=== PATIENT | male | born 1975 | race Caucasian/White ===

== ENCOUNTER 2017-11-22 13:45 | Emergency (ER) | payer MEDICAID, SELFPAY ==
[2017-11-22 13:46] VITALS: BP 151/83; PULSE 110; RESP 16; TEMP 36.4; O2SAT 99; BMI 29.8
--- NOTE | 2017-11-22 14:05 | ED.VISSUMM ---
- ER Visit Summary Date of Service: 11/22/17 Chief Complaint: Med refill History of Present Illness: The patient is a 42 M history of epilepsy on Tegretol 200 mg 3 times daily, Keppra 500 mg twice daily. out of his meds, has 1 Tegretol left. Seen a month ago with his breakthrough seizure when he is out of his meds. Since then several legal issues, and incarcerated, out of his Keppra in assisted. Denies any seizure activity. was seen [facility], however wants physician in the area. Physical Examination: General: Alert and oriented ?3, no acute distress HEENT: Normocephalic, atraumatic. Moist mucosa membranes Neck: supple, nontender. Cardiovascular: Regular rate and rhythm, no murmurs Respiratory: Normal breath sounds, symmetric, no distress Abdomen: Soft, nontender, nondistended Extremities: Nontender, no edema, pulses intact ?4 Neuro: no focal neurological deficits. Test Results: [] Emergency Department Course and Treatment: Patient will be [facility] physician [facility]. [facility] also has insurance so he can call physician the area for new patients. He prescribed 1 month supply of medications. Discussed with patient ED cannot continue to refill his medications. Primary can give him refills and long-term supplies. He understands. Treatment Plan: [] Disposition: Discharge Impression: 1. Medication refill 2. Epilepsy history This note was generated with [employer] Remember dictation software. It may contain incorrect words, spelling, and punctuation that were not noted in review of the chart prior to signing ED Disposition - Plan for ED Patient: Disposition: Home or Assisted Living Chief Complaint: Med Refill Diagnosis: Medication refill Instructions: Med Refill Prescriptions: Levetiracetam [Keppra] 500 mg PO BID #60 tablet Carbamazepine [Tegretol] 200 mg PO TID #90 tablet Referrals: Care Physician,No Primary [Primary Care Provider] - Evy Bassett MD [COURTESY STAFF PHYSICIAN] - 5-7 Days
--- NOTE | 2017-11-22 14:09 | ED.DCSUM_ITS ---
- ER Visit Summary Date of Service: 11/22/17 Chief Complaint: Med refill History of Present Illness: The patient is a 42 M history of epilepsy on Tegretol 200 mg 3 times daily, Keppra 500 mg twice daily. out of his meds, has 1 Tegretol left. Seen a month ago with his breakthrough seizure when he is out of his meds. Since then several legal issues, and incarcerated, out of his Keppra in shelter. Denies any seizure activity. was seen [facility] , however wants physician in the area. Physical Examination: General: Alert and oriented ?3, no acute distress HEENT: Normocephalic, atraumatic. Moist mucosa membranes Neck: supple, nontender. Cardiovascular: Regular rate and rhythm, no murmurs Respiratory: Normal breath sounds, symmetric, no distress Abdomen: Soft, nontender, nondistended Extremities: Nontender, no edema, pulses intact ?4 Neuro: no focal neurological deficits. Test Results: [] Emergency Department Course and Treatment: Patient will be given on-call physician [facility]. [facility] also has insurance so he can call physician the area for new patients. He prescribed 1 month supply of medications. Discussed with patient ED cannot continue to refill his medications. Primary can give him refills and long-term supplies. He understands. Treatment Plan: [] Disposition: Discharge Impression: 1. Medication refill 2. Epilepsy history This note was generated with PivotDesk dictation software. It may contain incorrect words, spelling, and punctuation that were not noted in review of the chart prior to signing ED Disposition - Plan for ED Patient: Disposition: Home or Assisted Living Chief Complaint: Med Refill Diagnosis: Medication refill Instructions: Med Refill Prescriptions: Levetiracetam [Keppra] 500 mg PO BID #60 tablet Carbamazepine [Tegretol] 200 mg PO TID #90 tablet Referrals: Care Physician,No Primary [Primary Care Provider] - Evy Bassett MD [COURTESY STAFF PHYSICIAN] - 5-7 Days
== END 2017-11-22 14:32 | disposition home or self-care (01) ==
PROVIDERS: Emergency Provider Emergency Medicine
DX: Z76.0 Encounter for issue of repeat prescription (principal); G40.909 Epilepsy, unspecified, not intractable, without status epilepticus
CPT/HCPCS: 99282

== ENCOUNTER 2018-02-08 14:36 | Emergency (ER) | payer SELFPAY ==
[2018-02-08 14:38] VITALS: BP 146/78; PULSE 91; RESP 14; TEMP 37.1; O2SAT 98; BMI 30.7
--- NOTE | 2018-02-08 15:10 | ED.DCSUM_ITS ---
- ER Visit Summary Date of Service: 02/08/18 Chief Complaint: Seizure History of Present Illness: The patient is a 42 M history of seizure disorder since he is a child. Recently moved from [facility] currently does not have a primary care physician. For the last several weeks he has been out of his seizure medications which are Keppra and Tegretol. Today at work had a seizure. Denies any falls or injuries. Currently states he feels fine. No recent illness. No recent head injury. Physical Examination: Well-appearing middle-age male. Vital signs are stable afebrile. HEENT exam unremarkable atraumatic. Pupils round reactive light. No facial or head trauma. C-spine nontender. Lungs clear to auscultation bilaterally. Heart regular rate and rhythm no murmur. Chest wall nontender. Abdomen soft nontender. Normal bowel sounds. Pelvic girdle intact. Moving all 4 extremities neurovascularly intact. He has limited range of motion of his right hip from prior hip surgery and prior hip fracture. Back exam nontender. Neurologically is awake and alert without focal motor deficits. Test Results: None Emergency Department Course and Treatment: Patient with recurrent seizure currently noncompliant of these out of his meds. As a normal exam. He will be given a dose of Keppra and Tegretol here and written for prescription for both. He will also be given referral to local physician. Treatment Plan: [] Disposition: Discharged Impression: Recurrent seizure History of chronic seizure disorder currently out of his medications This note was generated with Thrasos dictation software. It may contain incorrect words, spelling, and punctuation that were not noted in review of the chart prior to signing ED Disposition - Plan for ED Patient: Chief Complaint: Seizure Referrals: Care Physician,No Primary [Primary Care Provider] -
--- NOTE | 2018-02-08 15:10 | ED.DEP ---
ED Disposition - Plan for ED Patient: Disposition: Home or Assisted Living Chief Complaint: Seizure Instructions: ED Seizure Recurrent Prescriptions: levETIRAcetam tablet [Keppra tablet] 500 mg PO BID #60 tab Carbamazepine [Tegretol] 200 mg PO TIDCM #90 tab Referrals: Sukh Strange MD [STAFF PHYSICIAN] - As soon as possible Additional Instructions: Call and follow-up with a local primary care physician. I wrote you prescriptions for both of your seizure medications for the next month.
[2018-02-08 15:28] VITALS: BP 148/72; PULSE 87; RESP 18; O2SAT 100
[2018-02-08] MEDS: levETIRAcetam 500 MG Tablet PO (15:55)
[2018-02-08] MEDS: carBAMazepine 200 MG Tablet 400 MG PO (15:55)
== END 2018-02-08 15:56 | disposition home or self-care (01) ==
PROVIDERS: Emergency Provider Emergency Medicine
DX: G40.909 Epilepsy, unspecified, not intractable, without status epilepticus (principal); Z91.14 Patient's other noncompliance with medication regimen; Z72.0 Tobacco use
CPT/HCPCS: 99283

== ENCOUNTER 2019-04-17 08:41 | Emergency (ER) | payer MEDICAID, SELFPAY ==
[2019-04-17 08:42] VITALS: BP 157/139; PULSE 113; RESP 19; TEMP 36.9; O2SAT 98; BMI 33.7
--- NOTE | 2019-04-17 09:01 | ED.VIS.GEN ---
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 He is on Keppra and Tegretol, he has prescriptions but he does not have any money to fill them. Paramedics after a witnessed tonic-clonic seizure. Apparently he was in line at a charge for free breakfast. He is no longer postictal he is lucid coherent denies any shoulder pain tongue pain or any other symptoms. He tells me he feels back to baseline. Past Medical History - Allergies and Home Meds Allergies/Adverse Reactions: Allergies Penicillins Allergy (Verified 02/08/18 14:40) Rash Sulfa (Sulfonamide Antibiotics) Allergy (Verified 02/08/18 14:40) Rash Primary Care Physician: Care Physician,No Primary [Primary Care Provider] - Past Medical History: - - Seizure disorder Smoking Status: Current every day smoker Alcohol: Rare Drugs: None Review of Systems All systems negative except as indicated General: Denies: Chills, Fever, Sweats Eyes: Denies: Visual changes - bilaterally, Diplopia ENT: Denies: Rhinorrhea, Sore throat Cardiovascular: Denies: Chest pain, Palpitations Respiratory: Denies: Dyspnea, Cough, Dyspnea on exertion Gastrointestinal: Denies: Abdominal pain, Nausea, Vomiting, Diarrhea, Melena, Hematochezia Genitourinary: Denies: Dysuria, Hematuria, Frequency Musculoskeletal: Denies: Back pain, Extremity Pain Skin: Denies: Rash, Wounds Neurological: Reports: Numbness - As in HPI. Denies: Headache, Weakness Hematologic: Denies: Easy bruising Physical Exam Vital Signs/Narrative: Vital Signs Temp Pulse Resp BP Pulse Ox 04/17/19 08:42 98.5 F 113 H 19 H 157/139 H 98 Inital Vital Signs reviewed: Yes General: Well nourished, Well developed Head: Normocephalic Eyes: Perrl ENT: Moist mucous membranes Neck: Supple Cardiovascular: Regular rate, Regular rhythm Respiratory: No distress Abdomen: Soft, Nontender Back: Nontender, Normal Inspection. Negative for: CVA tenderness Extremities: Nontender Skin: Normal color Neurological: Alert, Oriented x3, - - Chronic dystonic movements Psychological: Normal affect, Normal Mood Diagnostic/Tx/Re-eval - Medical Decision Making Patient has an unremarkable ED work-up. We will get social work involved for medication prescription assistance. Otherwise he is discharged in stable condition ED Disposition - Plan for ED Patient: Disposition: Home or Assisted Living Instructions: SEIZURE, Recurrent [Adult] Referrals: Miguel Felipe DO [NON CLINICAL AFFILIATE] - 3-5 Days
[2019-04-17 09:28] VITALS: BP 134/76; PULSE 86; RESP 18; O2SAT 99
[2019-04-17 09:33] LABS: Absolute Lymphocyte Count 1.88 X10^3/ul (0.83-4.51); Absolute Neutrophil Count 3.5 X10^3/uL (2.0-7.7); Basophil# 0.01 X10^3/uL; Basophil% 0.2 % (0-1); Eosinophil# 0.23 X10^3/uL; Eosinophils% 3.6 % (0-5); Hematocrit 41.2 % (40-54); Hemoglobin 13.9 g/dl (13.0-16.5); Lymphocyte # 1.88 X10^3/ul (4.0); Lymphocyte % 29.2 % (19-41); Mean Corp Hgb Conc 33.7 g/gl (32-36); Mean Corpuscular Hgb 30.8 pg (27.0-32.0); Mean Corpuscular Volume 91.2 fL (80-94); Mean Platelet Vol. 9.2 fl (6.2-12.0); Monocyte# 0.84 X10^3/uL; Monocyte% 13.1 % (0-10); Neutrophil # 3.47 X10^3/uL (2.7-7.7); Neutrophil % 53.9 % (47-70); POSITIVE COUNT NO; POSITIVE DIFFERENTIAL NO; POSITIVE MORPHOLOGY NO; Platelet Count 317 K/mm3 (150-450); RBC Distribution Width CV 14.1 % (11.6-14.6); RBC Distribution Width SD 46.1 fl (35.1-43.9); Red Blood Count 4.52 M/mm3 (4.6-6.2); White Blood Count 6.4 K/mm3 (4.4-11.0)
[2019-04-17 09:46] LABS: ALB/GLOB Ratio 1.2 RATIO (0.9-2.4); AST(SGOT) 31 U/L (15-37); Alanine Aminotransfer ALT/SGPT 37 U/L (16-61); Albumin, Serum 3.8 g/dL (3.2-5.0); Alkaline Phosphatase 84 U/L (45-117); Anion Gap 5 (5-15); BUN 13 mg/dL (7-18); Calcium,Total 9.1 mg/dL (8.5-10.1); Chloride 104 mmol/L (98-107); EST Glomerular Filtration Rate 87 mL/min (>60); Est Glom Filt Rate - Afr Amer 105 mL/min (>60); Estimated Creatinine Clearance 71.19 ml/min; Globulin 3.2 g/dL (2.2-4.2); Glucose 90 mg/dL (74-106); Potassium 3.9 mmol/L (3.5-5.1); Sodium Level 136 mmol/L (136-145)
[2019-04-17 10:10] VITALS: PULSE 76
[2019-04-17 10:11] VITALS: BP 132/74; PULSE 76; RESP 20
--- NOTE | 2019-04-17 10:25 | CM.ED ---
Social Work Consult: Medication Assistance Informant: Charge Nurse, [place] Met with patient in room. This manager social services inquiring about medication concerns. Patient reporting to have no medication concerns and to be reporting to have needed medications. Patient stating to get frustrated with taking medication as it doesn't seem to make a difference. This manager social services broached topic of whether or not patient has had any thoughts of suicide, patient denies any thoughts. Patient is identifying to have limited support within the community and to currently be staying at the [facility]. Patient reporting to have a transportation card with [email or web address] and to have transportation to home. This manager social services encouraging patient to be compliant with medication management and following up with neurologist as well as having a conversation about the importance of being compliant. Patient voicing understanding, but continuing to stay the frustration with needing to manage medications and appointments. Patient stating to be able to management medications and appointments on own but to just be frustrating. This manager social services offering active listening and support throughout conversation. Nataly Browning CONSERVATION OF RESOURCES COMMISSIONER, [place]OLF
== END 2019-04-17 10:31 | disposition home or self-care (01) ==
PROVIDERS: Emergency Provider Emergency Medicine
DX: G40.909 Epilepsy, unspecified, not intractable, without status epilepticus (principal); F17.200 Nicotine dependence, unspecified, uncomplicated; Z88.0 Allergy status to penicillin
CPT/HCPCS: 80053; 85025; 99285; J7050

== ENCOUNTER 2020-06-26 14:10 | Emergency (ER) | payer MEDICAID, SELFPAY ==
[2020-06-26 14:10] VITALS: BP 134/80; PULSE 106; RESP 20; TEMP 37.1; O2SAT 95; BMI 30.6
--- NOTE | 2020-06-26 14:20 | ED.VIS.GEN ---
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 Patient has history of seizure disorder. He is currently on Keppra and Tegretol. He states he did miss his dose of medication last evening but otherwise has been taking it regularly. He reports his last seizure was approximately 1 week ago. Patient states the last thing he remembers is sitting on a bench outside the [facility] and then waking up with EMS around him. He denies any pain or injury at this time. - Past Medical History (1) Seizure disorder Status: Chronic Past Medical History - Allergies and Home Meds Allergies/Adverse Reactions: Allergies Penicillins Allergy (Verified 06/26/20 14:13) Rash Sulfa (Sulfonamide Antibiotics) Allergy (Verified 06/26/20 14:13) Rash Primary Care Physician: Ritesh Salazar MD [STAFF PHYSICIAN] - As Needed Prior records reviewed: Yes Smoking Status: Current every day smoker Drugs: Marijuana Review of Systems General: Denies: Chills, Fever Eyes: Denies: Visual changes - bilaterally ENT: Denies: Bilateral ear pain Cardiovascular: Denies: Chest pain Respiratory: Denies: Dyspnea, Cough Gastrointestinal: Denies: Abdominal pain, Vomiting, Diarrhea Musculoskeletal: Denies: Extremity Pain Skin: Denies: Rash Neurological: Denies: Headache Hematologic: Denies: Easy bruising, Easy bleeding Allergy: Denies: Uticaria Physical Exam Vital Signs/Narrative: Vital Signs Temp Pulse Resp BP Pulse Ox 06/26/20 14:10 98.8 F 106 H 20 H 134/80 H 95 Inital Vital Signs reviewed: Yes General: Well nourished, Well developed Head: Normocephalic ENT: Moist mucous membranes Neck: Supple Cardiovascular: Regular rate, Regular rhythm Respiratory: No distress, CTA bilaterally Abdomen: Soft, Nontender, Normal bowel sounds Extremities: Nontender Skin: Normal color Neurological: Alert, Oriented x3, Normal Strength, Normal Sensation Psychological: Normal affect Diagnostic/Tx/Re-eval Laboratory Results 06/26/20 06/26/20 14:15 14:15 WBC 7.5 RBC 4.13 L Hgb 13.4 Hct 40.5 MCV 98.1 H MCH 32.4 H MCHC 33.1 RDW Std Deviation 49.8 H RDW Coeff of Sunshine 13.7 Plt Count 288 MPV 10.0 Immature Gran % (Auto) 0.100 Neut % (Auto) 35.8 L Lymph % (Auto) 42.3 H Bee % (Auto) 14.5 H Eos % (Auto) 6.6 H Baso % (Auto) 0.7 Absolute Neuts (auto) 2.7 Absolute Lymphs (auto) 3.16 Nucleated RBC % 0 Sodium 143 Potassium 3.8 Chloride 109 H Carbon Dioxide 27.0 Anion Gap 7 BUN 7 Creatinine 1.16 Estim Creat Clear Calc 79.44 Est GFR (MDRD) Af Amer 88 Est GFR (MDRD) Non-Af 73 BUN/Creatinine Ratio 6.0 L Glucose 91 Calcium 9.3 - Medical Decision Making Patient was given 0.5 mg of IV Ativan along with his p.o. dose of Keppra and Tegretol. Lab results are unremarkable. At this time patient is alert and oriented. I will give him the phone number for call neurology follow-up as needed. He states he does have medications and refills left. Addendum: Although patient told me on 2 separate occasions that he had his medication with him and had been taking it regularly, he told the nurse when he was being discharged that he did not have any of his medications. He states he left the bottles and recommended he has been living in [place] lately because of legal reasons. Prescriptions for Keppra and Tegretol will be sent to [facility] for him. ED Disposition - Plan for ED Patient: Disposition: Home or Assisted Living Diagnosis: Seizure Instructions: ED Seizure Recurrent Adult Prescriptions: Levetiracetam [Keppra] 500 mg PO BID #60 tab Transmission Status: Pending to [facility] #30 Carbamazepine [Tegretol] 200 mg PO TIDCM #90 tab Transmission Status: Pending to [facility]30 Referrals: Ritesh Salazar MD [STAFF PHYSICIAN] - As Needed
[2020-06-26 14:26] VITALS: BP 133/77; PULSE 102; RESP 23; O2SAT 97
[2020-06-26 14:40] LABS: Absolute Lymphocyte Count 3.16 X10^3/uL (0.83-4.51); Absolute Neutrophil Count 2.7 X10^3/uL (2.0-7.7); Basophil# 0.05 X10^3/uL; Basophil% 0.7 % (0-1); Eosinophil# 0.49 X10^3/uL; Eosinophils% 6.6 % (0-5); Hematocrit 40.5 % (40-54); Hemoglobin 13.4 g/dL (13.0-16.5); Lymphocyte # 3.16 X10^3/ul (4.0); Lymphocyte % 42.3 % (19-41); Mean Corp Hgb Conc 33.1 g/dL (32-36); Mean Corpuscular Hgb 32.4 pg (27.0-32.0); Mean Corpuscular Volume 98.1 fL (80-94); Monocyte# 1.08 X10^3/uL; Monocyte% 14.5 % (0-10); NRBC Flagged by Analyzer 0 % (0-5); Neutrophil # 2.68 X10^3/uL (2.7-7.7); Neutrophil % 35.8 % (47-70); Platelet Count 288 K/mm3 (150-450); RBC Distribution Width CV 13.7 % (11.6-14.6); RBC Distribution Width SD 49.8 fl (35.1-43.9); Red Blood Count 4.13 M/mm3 (4.6-6.2); White Blood Count 7.5 K/mm3 (4.4-11.0)
[2020-06-26] MEDS: LORazepam 2 MG/ML Syringe 0.5 MG IV (14:42)
[2020-06-26 14:57] LABS: Anion Gap 7 (5-15); BUN 7 mg/dL (7-18); Calcium,Total 9.3 mg/dL (8.5-10.1); Chloride 109 mmol/L (98-107); Creatinine, Serum 1.16 mg/dL (0.70-1.30); EST Glomerular Filtration Rate 73 mL/min (>60); Est Glom Filt Rate - Afr Amer 88 mL/min (>60); Estimated Creatinine Clearance 79.44 ml/min; Glucose 91 mg/dL (74-106); Potassium 3.8 mmol/L (3.5-5.1); Sodium Level 143 mmol/L (136-145)
[2020-06-26] MEDS: carBAMazepine 200 MG Tablet PO (15:10)
[2020-06-26] MEDS: levETIRAcetam 500 MG Tablet PO (15:10)
[2020-06-26 16:31] VITALS: BP 125/63; PULSE 101; RESP 27; O2SAT 98
== END 2020-06-26 16:43 | disposition home or self-care (01) ==
PROVIDERS: Emergency Provider Emergency Medicine; PCP Family Medicine
DX: G40.909 Epilepsy, unspecified, not intractable, without status epilepticus (principal); F17.200 Nicotine dependence, unspecified, uncomplicated; Z88.0 Allergy status to penicillin; Z88.2 Allergy status to sulfonamides
CPT/HCPCS: 80048; 85025; 96374; 99285; A4216

== ENCOUNTER 2020-07-04 14:01 | Emergency (ER) | payer MEDICAID, SELFPAY ==
[2020-07-04 14:03] VITALS: BP 133/64; PULSE 102; RESP 16; TEMP 36.4; O2SAT 97; BMI 30.7
--- NOTE | 2020-07-04 14:14 | ED.DCSUM_ITS ---
- ER Visit Summary Date of Service: 07/04/20 Chief Complaint: [Seizure] History of Present Illness: The patient is a 44 M [presents to the emergency department after having a seizure while outside of [employer]. Patient was witnessed apparently to have whole body tonic-clonic seizure and EMS was called. EMS stated the seizure was noted to last about 2 minutes. Patient has history of seizures. Patient states last seizure was about 1 month ago. Patient states that he has been compliant with his medications. Patient denies recent illness. He denies sleep deprivation. Patient has no complaints. He denies injury. He denies biting his mouth or tongue. He denies losing control of bowel or bladder.] Patient denies illicit drug use. Patient denies alcohol use. Physical Examination: [HEENT-PERRLA, EOMI. Cranial nerves II through XII grossly intact. TMs clear. Mucous membranes moist. No adenopathy. Cardiovascular-regular rate and rhythm without murmur or ectopy Lungs-clear to auscultation, chest wall stable without crepitus or subcu emphysema Abdomen-normoactive bowel sounds, soft, nontender, no rebound or rigidity, no peritoneal signs. Neuro [id number] and heel campos testing within normal limits, negative Romberg, negative for drift, fundi benign Extremities-intact ?4, normal range of motion, normal pulses, atraumatic] Test Results: [CBC with differential obtained showing a 6.2, hemoglobin 13.7, hematocrit 42, placed 321. Chemistries unremarkable. BUN was 12 and creatinine 1.22.] Patient's Tegretol level was less than 5. Emergency Department Course and Treatment: [ Established on arrival. Patient was observed in the department. After I noted that his Tegretol level was less than 5 I discussed with him further if he has been taking his medications and now he tells me that he is actually been without his meds for about 3 days as he ran out. Patient received Keppra 500 mg p.o. and Tegretol 200 mg p.o. in the department.] Treatment Plan: [Patient will be given prescription for Keppra and Tegretol. Patient advised to follow-up with his primary care physician 3 to 5 days.] Disposition: [Discharged home in stable condition] Impression: [Hcmjqro-[id number]-[id number] with meds] This note was generated with Dragon dictation software. It may contain incorrect words, spelling, and punctuation that were not noted in review of the chart prior to signing ED Disposition - Plan for ED Patient: Referrals: Austin Skinner MD [Primary Care Provider] -
[2020-07-04 14:39] LABS: Absolute Lymphocyte Count 2.18 X10^3/uL (0.83-4.51); Absolute Neutrophil Count 2.7 X10^3/uL (2.0-7.7); Basophil# 0.04 X10^3/uL; Basophil% 0.6 % (0-1); Eosinophil# 0.28 X10^3/uL; Eosinophils% 4.5 % (0-5); Hematocrit 41.8 % (40-54); Hemoglobin 13.7 g/dL (13.0-16.5); Lymphocyte # 2.18 X10^3/ul (4.0); Lymphocyte % 35.2 % (19-41); Mean Corp Hgb Conc 32.8 g/dL (32-36); Mean Corpuscular Hgb 32.8 pg (27.0-32.0); Mean Platelet Vol. 9.5 fl (6.2-12.0); Monocyte% 16.1 % (0-10); NRBC Flagged by Analyzer 0 % (0-5); Neutrophil # 2.69 X10^3/uL (2.7-7.7); Neutrophil % 43.4 % (47-70); Platelet Count 321 K/mm3 (150-450); RBC Distribution Width CV 13.7 % (11.6-14.6); RBC Distribution Width SD 50.3 fl (35.1-43.9); Red Blood Count 4.18 M/mm3 (4.6-6.2); White Blood Count 6.2 K/mm3 (4.4-11.0)
[2020-07-04 14:50] LABS: Anion Gap 10 (5-15); BUN 12 mg/dL (7-18); BUN/Creat Ratio 9.8 RATIO (10-20); Calcium,Total 8.9 mg/dL (8.5-10.1); Chloride 107 mmol/L (98-107); Creatinine, Serum 1.22 mg/dL (0.70-1.30); EST Glomerular Filtration Rate 69 mL/min (>60); Est Glom Filt Rate - Afr Amer 83 mL/min (>60); Estimated Creatinine Clearance 70.45 ml/min; Glucose 88 mg/dL (74-106); Potassium 4.3 mmol/L (3.5-5.1); Sodium Level 141 mmol/L (136-145)
[2020-07-04 15:33] LABS: Carbamazepine (Tegretol) < 0.5 ug/mL (4.0-12.0)
--- NOTE | 2020-07-04 15:41 | ED.DEP ---
ED Disposition - Plan for ED Patient: Instructions: ED Seizure Recurrent Adult Prescriptions: Levetiracetam [Keppra] 500 mg PO BID #60 tab Transmission Status: Pending to [facility] #30 Carbamazepine [Tegretol] 200 mg PO TIDCM #90 tab Transmission Status: Pending to [facility] Referrals: Austin Skinner MD [Primary Care Provider] -
[2020-07-04] MEDS: levETIRAcetam 500 MG Tablet PO (15:57)
[2020-07-04] MEDS: carBAMazepine 200 MG Tablet PO (15:57)
== END 2020-07-04 16:00 | disposition home or self-care (01) ==
LOC: ED 14:46
PROVIDERS: Emergency Provider Emergency Medicine; PCP Family Medicine
DX: G40.909 Epilepsy, unspecified, not intractable, without status epilepticus (principal); Z91.14 Patient's other noncompliance with medication regimen
CPT/HCPCS: 80048; 80156; 85025; 99285; A4216

== ENCOUNTER 2020-07-15 22:25 | Emergency (ER) | payer MEDICAID, SELFPAY ==
[2020-07-15 22:25] VITALS: BP 138/84; PULSE 95; RESP 14; TEMP 36.7; O2SAT 95; BMI 27.7
--- NOTE | 2020-07-15 22:39 | CT_ITS ---
STUDY: CT BRAIN WITHOUT CONTRAST REASON FOR EXAM: Male, 44 years old. 2 minutes seizure. Hasn''t taking seizure medication for weeks. RADIATION DOSAGE (If Supplied By Facility): CTDIvol = ( 44.99 ) mGy, DLP = ( 846.73 ) mGycm TECHNIQUE: Transaxial CT imaging of the brain was performed without administration of intravenous contrast material. Individualized dose optimization techniques were used for this CT. COMPARISON: 07/01/2017. FINDINGS: Normal soft tissue structures. Normal calvarium. Been interval healing of the right zygomatic arch fracture seen on the prior study. Normal size ventricles and extra-axial spaces for the patient''s age. Normal white matter tracts of the cerebral hemispheres. Normal basal ganglia and thalami. Normal brainstem. Normal cerebellum. There is no intracranial hemorrhage. There are no findings of an acute ischemic infarction. Normal visualized paranasal sinuses. CT/Brain/Head without Contrast IMPRESSION: No acute intracranial calvarial abnormality. Electronically Signed: Pj Rashid DO at 23:27 EDT Tel [phone], Service support ,
--- NOTE | 2020-07-15 22:42 | ED.VISSUMM ---
- ER Visit Summary Date of Service: 07/15/20 Chief Complaint: Seizure History of Present Illness: The patient is a 44 M presenting after generalized seizure. Patient does not recall the events surrounding this incident. He arrived per EMS. He was found outside [facility] after bystanders witnessed 2 min seizure. He has a history of seizure disorder. He states he has been out of his medications for the past 3 weeks. He usually takes Keppra and Tegretol. Last seizure was approximately 1 month ago. He is unsure of his last tetanus immunization. He denies headache or neck pain. Denies incontinence. Denies injury. Physical Examination: Vitals are stable. Patient is afebrile. Alert no acute distress. HEENT exam abrasion superior scalp Neck is nontender Lungs are clear and equal bilaterally. Heart is regular rate and rhythm. Abdomen is soft nontender nondistended. Extremities are unremarkable. Skin is warm and dry. No focal neurologic deficit. Remainder of exam is unremarkable. Emergency Department Course and Treatment: Patient was given Adacel IM. Abrasion was cleaned and dressed. He was given Tegretol and Keppra. CT head shows no acute intracranial calvarial abnormality. Patient was given prescriptions for Keppra and Tegretol. He states he will be able to get these filled tomorrow. He is advised to return to the ED for any worsening complaints. Disposition: Discharged home Impression: Seizure, history of seizure disorder; noncompliance with medications This note was generated with [employer] dictation software. It may contain incorrect words, spelling, and punctuation that were not noted in review of the chart prior to signing ED Disposition - Plan for ED Patient: Referrals: Austin Skinner MD [Primary Care Provider] -
[2020-07-15] MEDS: carBAMazepine 200 MG Tablet PO (23:02)
[2020-07-15] MEDS: Diphth,Pertuss(Acell),Tet Vac 0.5 ML Vial IM (23:02)
[2020-07-15] MEDS: levETIRAcetam 500 MG Tablet 1000 MG PO (23:02)
--- NOTE | 2020-07-15 23:37 | ED.DEP ---
ED Disposition - Plan for ED Patient: Instructions: ED Seizure Recurrent Adult Prescriptions: levETIRAcetam tablet [Keppra tablet] 500 mg PO BID #60 tab Prescription Printed Carbamazepine [Tegretol] 200 mg PO TIDCM #90 tab Prescription Printed Referrals: Austin Skinner MD [Primary Care Provider] -
[2020-07-15 23:40] VITALS: BP 139/92; PULSE 68; RESP 16; O2SAT 98
== END 2020-07-15 23:43 | disposition home or self-care (01) ==
PROVIDERS: Emergency Provider Emergency Medicine; PCP Family Medicine
DX: G40.909 Epilepsy, unspecified, not intractable, without status epilepticus (principal); Z91.14 Patient's other noncompliance with medication regimen
CPT/HCPCS: 70450; 90471; 90715; 99285; A4216

== ENCOUNTER 2020-07-19 08:52 | Emergency (ER) | payer MEDICAID, SELFPAY ==
[2020-07-19 08:53] VITALS: BP 125/87; PULSE 82; RESP 19; TEMP 36.9; O2SAT 98; BMI 28.1
--- NOTE | 2020-07-19 09:03 | ED.VIS.GEN ---
History of Present Illness <Jesus Willingham - Last Filed: 07/19/20 10:05> Informant: Patient Onset: Today Narrative: 44-year-old male with past medical history of seizure disorder presents after a seizure. He states this is his third seizure this week. He does not recall what happened. He has a history of generalized tonic-clonic seizures and was brought in by squad. Denies injuries. 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 He has not taken any AEDs for the last week. He does not follow with a doctor or neurologist. Denies fevers, chills, headache, vision changes, nausea, vomiting, or motor or sensory changes. <Sheela Barth - Last Filed: 07/19/20 10:22> Chief Complaint: Seizure Past Medical History <Jesus Willingham - Last Filed: 07/19/20 10:05> Past Medical History: - - epilepsy Smoking Status: Current every day smoker <Sheela Barth - Last Filed: 07/19/20 10:22> - Allergies and Home Meds Allergies/Adverse Reactions: Allergies Penicillins Allergy (Verified 07/19/20 08:53) Rash Sulfa (Sulfonamide Antibiotics) Allergy (Verified 07/19/20 08:53) Rash Primary Care Physician: Austin Skinner MD [Primary Care Provider] - Review of Systems General: Denies: Chills, Fever, Sweats Eyes: Denies: Visual changes - bilaterally, Diplopia ENT: Denies: Rhinorrhea, Sore throat Cardiovascular: Denies: Chest pain, Palpitations Respiratory: Denies: Dyspnea, Cough, Dyspnea on exertion Gastrointestinal: Reports: Melena, Hematochezia. Denies: Abdominal pain, Nausea, Vomiting, Diarrhea Genitourinary: Denies: Dysuria, Hematuria, Frequency Musculoskeletal: Denies: Back pain, Extremity Pain Skin: Reports: Rash. Denies: Wounds Neurological: Denies: Headache, Weakness, Parasthesia, Numbness <Sheela Barth - Last Filed: 07/19/20 10:22> Physical Exam Vital Signs/Narrative: Vital Signs Temp Pulse Resp BP Pulse Ox 07/19/20 08:53 98.5 F 82 19 H 125/87 H 98 <Jesus Willingham - Last Filed: 07/19/20 10:05> Vital Signs/Narrative: Vital Signs Temp Pulse Resp BP Pulse Ox 07/19/20 08:53 98.5 F 82 19 H 125/87 H 98 Inital Vital Signs reviewed: Yes General: Well nourished, Well developed, No Acute Distress Head: Normocephalic, Atraumatic Eyes: Perrl, EOMI ENT: Moist mucous membranes, - - Old abrasion on vertex of head, otherwise head atraumatic with no deformity or crepitus. TMs clear bilaterally with no hemotympanum, no nasal hematoma, no tongue bite, teeth have all been removed, no CSF otorrhea or rhinorrhea Neck: Supple, Nontender Cardiovascular: Regular rate, Regular rhythm, No murmurs Respiratory: No distress, CTA bilaterally, Chest nontender Abdomen: Soft, Nontender, Nondistended, Normal bowel sounds Back: Nontender, Normal Inspection Extremities: Nontender, No edema Skin: Normal color, No rash Neurological: Alert, Oriented x3, Cranial nerves II-XII grossly intact, Normal Strength, Normal Sensation Psychological: Normal affect, Normal Mood <Sheela Barth - Last Filed: 07/19/20 10:22> Diagnostic/Tx/Re-eval - Medical Decision Making I supervised the PA and have performed my own pertinent history and physical. Results and treatment plan were discussed. HPI: Patient has a history of seizures. Reports he has not been able to afford his medications. He had a seizure today. He denies any injury from this. He denies headache. PE: Vitals: Stable. Afebrile. General: Well-nourished and well-developed. Head: Normocephalic atraumatic. Neck: Supple, no lymphadenopathy. No JVD. Nontender. Cardiovascular: Regular rate and rhythm. No murmurs. Respiratory: No respiratory distress. Clear to auscultation bilaterally. Abdominal: Soft, nontender, nondistended, normal bowel sounds. No guarding, rebound, or peritoneal signs. Back: Nontender. Extremities: Nontender, no edema. Skin: Normal color, no rash. Neurologic: Alert and oriented ?3. Cranial nerves II through XII are intact. Normal strength and sensation. Psych: Normal affect. Emergency Department course: Screening labs were obtained and are unremarkable. Patient was given a dose of Keppra IV and Tegretol p.o. He was seen by case management to help arrange so that he can get his medications. Treatment Plan: Patient is instructed not to drive. Take his Keppra and Tegretol as previously directed. Follow-up with his neurologist as soon as possible. Return to the emergency department for any worsening symptoms. This note was generated with [employer] dictation software. It may contain incorrect words, spelling, and punctuation that were not noted in review of the chart prior to signing. <MaulikJesus - Last Filed: 07/19/20 10:05> Laboratory Data 07/19/20 07/19/20 09:00 09:00 WBC 7.5 RBC 4.47 L Hgb 14.5 Hct 44.9 MCV 100.4 H MCH 32.4 H MCHC 32.3 RDW Std Deviation 49.6 H RDW Coeff of Sunshine 13.3 Plt Count 277 MPV 9.8 Immature Gran % (Auto) 0.300 Neut % (Auto) 33.5 L Lymph % (Auto) 38.2 [place] % (Auto) 20.8 H Eos % (Auto) 6.4 H Baso % (Auto) 0.8 Absolute Neuts (auto) 2.5 Absolute Lymphs (auto) 2.87 Nucleated RBC % 0 Sodium 140 Potassium 4.3 Chloride 108 H Carbon Dioxide 24.0 Anion Gap 8 BUN 13 Creatinine 1.11 Estim Creat Clear Calc 80.23 Est GFR (MDRD) Af Amer 93 Est GFR (MDRD) Non-Af 77 BUN/Creatinine Ratio 11.7 Glucose 81 Calcium 9.2 - Medical Decision Making Patient with known seizure disorder presented after seizure since he has not been taking his meds for the last week. He appears well nontoxic. Vital signs within normal limits. He has no injuries on exam. Normal neurological exam. No signs of head trauma or indication for wedging at this time. Screening labs were obtained and are normal. Tegretol level is low as expected. Patient states he has had trouble affording his medications. He was given loading dose of Keppra and his home dose of Tegretol here. Social work provided him resources for community access. Discussed that without his meds he will have another seizure. He is not allowed to drive at this time as it is a risk to himself and others. Patient expressed understanding. He was discharged home in stable condition. <Sheela Barth - Last Filed: 07/19/20 10:22> ED Disposition <Jesus Willingham - Last Filed: 07/19/20 10:05> <Sheela Barth - Last Filed: 07/19/20 10:22> - Plan for ED Patient: Disposition: Home or Assisted Living Diagnosis: Seizure, Nonadherence to medication Instructions: ED Seizure Recurrent Adult Referrals: Austin Skinner MD [Primary Care Provider] -
[2020-07-19 09:13] LABS: Absolute Lymphocyte Count 2.87 X10^3/uL (0.83-4.51); Absolute Neutrophil Count 2.5 X10^3/uL (2.0-7.7); Basophil# 0.06 X10^3/uL; Basophil% 0.8 % (0-1); Eosinophil# 0.48 X10^3/uL; Eosinophils% 6.4 % (0-5); Hematocrit 44.9 % (40-54); Hemoglobin 14.5 g/dL (13.0-16.5); Lymphocyte # 2.87 X10^3/ul (4.0); Lymphocyte % 38.2 % (19-41); Mean Corp Hgb Conc 32.3 g/dL (32-36); Mean Corpuscular Hgb 32.4 pg (27.0-32.0); Mean Corpuscular Volume 100.4 fL (80-94); Mean Platelet Vol. 9.8 fl (6.2-12.0); Monocyte# 1.56 X10^3/uL; Monocyte% 20.8 % (0-10); NRBC Flagged by Analyzer 0 % (0-5); Neutrophil # 2.52 X10^3/uL (2.7-7.7); Neutrophil % 33.5 % (47-70); POSITIVE DIFFERENTIAL YES; Platelet Count 277 K/mm3 (150-450); RBC Distribution Width CV 13.3 % (11.6-14.6); RBC Distribution Width SD 49.6 fl (35.1-43.9); Red Blood Count 4.47 M/mm3 (4.6-6.2); White Blood Count 7.5 K/mm3 (4.4-11.0)
[2020-07-19 09:16] LABS: Differential Indicated SCAN CRITERIA MET
[2020-07-19 09:23] LABS: Anion Gap 8 (5-15); BUN 13 mg/dL (7-18); BUN/Creat Ratio 11.7 RATIO (10-20); Calcium,Total 9.2 mg/dL (8.5-10.1); Chloride 108 mmol/L (98-107); Creatinine, Serum 1.11 mg/dL (0.70-1.30); EST Glomerular Filtration Rate 77 mL/min (>60); Est Glom Filt Rate - Afr Amer 93 mL/min (>60); Estimated Creatinine Clearance 80.23 ml/min; Glucose 81 mg/dL (74-106); Potassium 4.3 mmol/L (3.5-5.1); Sodium Level 140 mmol/L (136-145)
[2020-07-19] MEDS: levETIRAcetam IV 1,000 MG/100 ML BAG 400 MG IV (09:42)
--- NOTE | 2020-07-19 09:54 | CM.ED ---
Social Work Consult: Resources/Prescription assistance Informant: Santosh Tamez RN Met with patient in room. Introduced self and home health care social worker role. Patient familiar to this home health care social worker from prior interactions for smilier consults. Patient remembering this home health care social worker. In the past patient has not been open to prescriptions assistance options. Patient reports to be now open to prescription assistance. This home health care social worker providing patient with [employer], [employer], and [employer] as options for prescription assistance. Patient is currently unemployed and homeless. Patient reports to be staying at [facility] and to be working with [facility] on housing. This home health care social worker inquiring about transportation for patient. Patient denies having taxi vouchers. Patient aware of taxi voucher options through [employer]. This home health care social worker inquiring about patient following up with doctors. Patient reports to have difficulty getting to doctors appointment as patient doctor is in [place]. Patient is open to this home health care social worker providing patient with list of PCP's in the local area as patient reports plan to continue to stay local. Patient educated on transportation option through insurance as well. Patient provided with written information on all mentioned resources. Patient reports to now what I need to do. Patient states to have recently gotten out of senior living 3 weeks ago and to be working on getting things set back up. Patient denies having any support from family or friends. Patient denies any mental health issues or concerns. This home health care social worker provided active support and listening throughout conversation. Medical team updated on above. Nataly FLANAGAN, ANDREA
[2020-07-19 10:01] LABS: Differential Comment SCANNED; Reactive Lymphocyte 2+
[2020-07-19] MEDS: carBAMazepine 200 MG Tablet PO (11:25)
[2020-07-19 11:33] VITALS: BP 113/74; BP 113/76; PULSE 74; RESP 18; O2SAT 99
--- NOTE | 2020-07-19 11:39 | CM.ED ---
Social Work Nursing staff notifying this social secretary of patient request for transportation to [facility] as patient does not have shoes to walk to [facility]. Met with patient in room. Patient reports to have no community support to call for a ride and to have no way of paying for a taxi pass. Patient agreeable to this social secretary contacting [facility] transportation. Telephone call to [facility] Transportation, Reyna. Transportation able to pick patient up and they are on their way. This social secretary updated patient and confirmed with nursing staff that patient has been discharged. This social secretary assisted in escorting patient to waiting room to wait for transportation. This social secretary encouraging patient to complete application for taxi vouchers. Patient voicing understanding to this. Nataly FLANAGAN, LYNDSEYS
[2020-07-19 12:20] LABS: Carbamazepine (Tegretol) 0.7 ug/mL (4.0-12.0)
== END 2020-07-19 11:33 | disposition home or self-care (01) ==
PROVIDERS: Emergency Provider Physician Assistant; PCP Family Medicine
DX: G40.909 Epilepsy, unspecified, not intractable, without status epilepticus (principal); F17.200 Nicotine dependence, unspecified, uncomplicated; Z91.14 Patient's other noncompliance with medication regimen
CPT/HCPCS: 80048; 80156; 85025; 96365; 96366; 99284; A4216

== ENCOUNTER 2020-07-23 09:55 | Emergency (ER) | payer MEDICAID, SELFPAY ==
[2020-07-23 09:56] VITALS: BP 134/111; PULSE 85; RESP 17; TEMP 36.9; O2SAT 94; BMI 26.9
--- NOTE | 2020-07-23 09:58 | ED.DCSUM_ITS ---
History of Present Illness Chief Complaint: Seizure Informant: Patient Onset: Today Context: Sudden Onset Current Severity: Mild Maximum Severity: Moderate Narrative: The patient is a 44-year-old male with medical history significant for seizure disorder the presents to the emergency department after witnessed seizure. Patient states he was in his laundry room at the [facility]. Per report, he had a witnessed tonic-clonic seizure and was postictal. Bystanders thought he was not breathing. He was given CPR for about 30 seconds. On arrival by squad, the patient was postictal but more alert. By the time that he arrived to the emergency department, he is awake and alert and without any complaints. The patient has been seen multiple times for breakthrough seizure. He states that he is not taken his medication for about a month. His last breakthrough seizure was about a week ago. He states that sometimes the medications are just too expensive for him to afford. Prior similar symptoms: Yes Recent Illness/Hospitalization: Yes Past Medical History - Allergies and Home Meds Allergies/Adverse Reactions: Allergies Penicillins Allergy (Verified 07/23/20 09:56) Rash Sulfa (Sulfonamide Antibiotics) Allergy (Verified 07/23/20 09:56) Rash Primary Care Physician: Austin Skinner MD [Primary Care Provider] - Prior records reviewed: Yes Past Medical History: - - Epilepsy Surgical History: noncontributory Smoking Status: Current every day smoker Review of Systems General: Denies: Chills, Fever, Sweats Eyes: Denies: Visual changes - bilaterally, Diplopia ENT: Denies: Rhinorrhea, Sore throat Cardiovascular: Denies: Chest pain, Palpitations Respiratory: Denies: Dyspnea, Cough, Dyspnea on exertion Gastrointestinal: Denies: Abdominal pain, Nausea, Vomiting, Diarrhea, Melena, Hematochezia Genitourinary: Denies: Dysuria, Hematuria, Frequency Musculoskeletal: Denies: Back pain, Extremity Pain Skin: Denies: Rash, Wounds Neurological: Denies: Headache, Weakness, Numbness Physical Exam Inital Vital Signs reviewed: Yes General: Well nourished, Well developed, No Acute Distress Head: Normocephalic, Atraumatic Eyes: Perrl, EOMI ENT: Moist mucous membranes, No rhinorrhea Neck: Supple, Nontender Cardiovascular: Regular rate, Regular rhythm, No murmurs Respiratory: No distress, CTA bilaterally, Chest nontender Abdomen: Soft, Nontender, Nondistended, Normal bowel sounds Back: Nontender, Normal Inspection Extremities: Nontender, No edema Skin: Normal color, No rash Neurological: Alert, Oriented x3, Cranial nerves II-XII grossly intact, Normal Strength, Normal Sensation Psychological: Normal affect, Normal Mood Diagnostic/Tx/Re-eval Abnormal Lab Results 07/23/20 07/23/20 10:45 10:45 WBC 6.1 RBC 4.47 L Hgb 14.4 Hct 44.3 MCV 99.1 H MCH 32.2 H MCHC 32.5 RDW Std Deviation 49.2 H RDW Coeff of Sunshine 13.4 Plt Count 277 MPV 9.7 Immature Gran % (Auto) 0.200 Neut % (Auto) 52.2 Lymph % (Auto) 30.0 Sully % (Auto) 12.5 H Eos % (Auto) 4.1 Baso % (Auto) 1.0 Absolute Neuts (auto) 3.2 Absolute Lymphs (auto) 1.84 Nucleated RBC % 0 Sodium 138 Potassium 4.8 Chloride 107 Carbon Dioxide 29.0 Anion Gap 2 L BUN 11 Creatinine 1.04 Estim Creat Clear Calc 88.61 Est GFR (MDRD) Af Amer 100 Est GFR (MDRD) Non-Af 83 BUN/Creatinine Ratio 10.6 Glucose 90 Calcium 9.2 - Medical Decision Making The patient presents after breakthrough seizure. He is awake and alert. He does admit to noncompliance with his medications. He was given an IV dose of Keppra and his oral Tegretol. He was observed for 2 hours. He had no further seizure activity. He states he does have medications that he can pickle cutter today. He did trauma counsellor him on the importance of taking his medications to prevent seizures. The patient to be discharged home. Impression 1. Breakthrough seizure 2. Medication noncompliance ED Disposition - Plan for ED Patient: Instructions: ED Seizure Recurrent Adult Referrals: Austin Skinner MD [Primary Care Provider] -
[2020-07-23 09:59] VITALS: BP 125/73; PULSE 78; RESP 14
[2020-07-23 10:54] LABS: Absolute Lymphocyte Count 1.84 X10^3/uL (0.83-4.51); Absolute Neutrophil Count 3.2 X10^3/uL (2.0-7.7); Basophil# 0.06 X10^3/uL; Eosinophil# 0.25 X10^3/uL; Eosinophils% 4.1 % (0-5); Hematocrit 44.3 % (40-54); Hemoglobin 14.4 g/dL (13.0-16.5); Lymphocyte # 1.84 X10^3/ul (4.0); Mean Corp Hgb Conc 32.5 g/dL (32-36); Mean Corpuscular Hgb 32.2 pg (27.0-32.0); Mean Corpuscular Volume 99.1 fL (80-94); Mean Platelet Vol. 9.7 fl (6.2-12.0); Monocyte# 0.77 X10^3/uL; Monocyte% 12.5 % (0-10); NRBC Flagged by Analyzer 0 % (0-5); Neutrophil # 3.21 X10^3/uL (2.7-7.7); Neutrophil % 52.2 % (47-70); Platelet Count 277 K/mm3 (150-450); RBC Distribution Width CV 13.4 % (11.6-14.6); RBC Distribution Width SD 49.2 fl (35.1-43.9); Red Blood Count 4.47 M/mm3 (4.6-6.2); White Blood Count 6.1 K/mm3 (4.4-11.0)
[2020-07-23] MEDS: carBAMazepine 200 MG Tablet 400 MG PO (11:05)
[2020-07-23] MEDS: levETIRAcetam IV 1,000 MG/100 ML BAG 400 MG IV (11:06)
[2020-07-23 11:12] LABS: Anion Gap 2 (5-15); BUN 11 mg/dL (7-18); BUN/Creat Ratio 10.6 RATIO (10-20); Calcium,Total 9.2 mg/dL (8.5-10.1); Chloride 107 mmol/L (98-107); Creatinine, Serum 1.04 mg/dL (0.70-1.30); EST Glomerular Filtration Rate 83 mL/min (>60); Est Glom Filt Rate - Afr Amer 100 mL/min (>60); Estimated Creatinine Clearance 88.61 ml/min; Glucose 90 mg/dL (74-106); Potassium 4.8 mmol/L (3.5-5.1); Sodium Level 138 mmol/L (136-145)
[2020-07-23 11:56] VITALS: BP 119/83; PULSE 67; RESP 20; O2SAT 100
== END 2020-07-23 12:00 | disposition home or self-care (01) ==
PROVIDERS: Emergency Provider Emergency Medicine; PCP Family Medicine
DX: G40.909 Epilepsy, unspecified, not intractable, without status epilepticus (principal); F17.200 Nicotine dependence, unspecified, uncomplicated; Z88.0 Allergy status to penicillin; Z88.2 Allergy status to sulfonamides; Z91.14 Patient's other noncompliance with medication regimen
CPT/HCPCS: 80048; 85025; 96365; 99283; 99285; A4216

== ENCOUNTER 2020-07-30 17:26 | Emergency (ER) | payer MEDICAID, SELFPAY ==
[2020-07-30 17:28] VITALS: BP 112/98; PULSE 105; RESP 12; TEMP 36.9; O2SAT 98; BMI 27.3
[2020-07-30 17:32] VITALS: PULSE 109; RESP 19; O2SAT 97
--- NOTE | 2020-07-30 17:38 | ED.VIS.GEN ---
History of Present Illness Chief Complaint: Seizure Informant: Patient Narrative: Patient presents the emergency department for evaluation of seizure. Patient has a long history of seizure disorder and medical noncompliance. He was last seen approximately 7 days ago for the same. He states he is waiting to see a neurologist but needs a referral for somebody in her area. States he took his Tegretol and his Keppra today. He missed his dosing last night. He states that he does have his medicines but he frequently misses them. He denies any injuries from the seizure. Actually states he had 2 seizures [id number]. He is feeling okay at the present moment. - Past Medical History (1) Seizure disorder Status: Chronic Past Medical History - Allergies and Home Meds Allergies/Adverse Reactions: Allergies Penicillins Allergy (Verified 07/30/20 17:28) Rash Sulfa (Sulfonamide Antibiotics) Allergy (Verified 07/30/20 17:28) Rash Primary Care Physician: Austin Skinner MD [Primary Care Provider] - Keep Sandeep appointment Ritesh Salazar MD [STAFF PHYSICIAN] - As soon as possible (for neurology) Past Medical History: - - Seizure disorder Surgical History: noncontributory Lives: Homeless - staying at [facility] [employer] Smoking Status: Current every day smoker Alcohol: Occasional Drugs: Marijuana Review of Systems General: Denies: Chills, Fever, Sweats Eyes: Denies: Visual changes - bilaterally, Diplopia ENT: Denies: Rhinorrhea, Sore throat Cardiovascular: Denies: Chest pain, Palpitations Respiratory: Denies: Dyspnea, Cough, Dyspnea on exertion Gastrointestinal: Denies: Abdominal pain, Nausea, Vomiting, Diarrhea, Melena, Hematochezia Genitourinary: Denies: Dysuria, Hematuria, Frequency Musculoskeletal: Denies: Back pain, Extremity Pain Skin: Denies: Rash, Wounds Neurological: Reports: - - seizure. Denies: Headache, Weakness, Numbness Physical Exam Vital Signs/Narrative: Vital Signs Temp Pulse Resp BP Pulse Ox 07/30/20 17:32 109 H 19 H 97 07/30/20 17:28 98.5 F 105 H 12 112/98 H 98 Inital Vital Signs reviewed: Yes General: Well nourished, Well developed, No Acute Distress Head: Normocephalic, Atraumatic Eyes: Perrl, EOMI ENT: Moist mucous membranes, No rhinorrhea Neck: Supple, Nontender Cardiovascular: Regular rate, Regular rhythm, No murmurs Respiratory: No distress, CTA bilaterally, Chest nontender Abdomen: Soft, Nontender, Nondistended, Normal bowel sounds Back: Nontender, Normal Inspection Extremities: Nontender, No edema Skin: Normal color, No rash Neurological: Alert, Oriented x3, Cranial nerves II-XII grossly intact, Normal Strength, Normal Sensation Psychological: Normal affect, Normal Mood Diagnostic/Tx/Re-eval - Medical Decision Making Patient was placed on the monitor seizure precautions were taken. Tegretol level was negative. Therefore received a dose of Tegretol and Keppra. This once again underscores his noncompliance with his seizure medication. He assures me that effect does have his seizure medication at the [facility] where he was staying. Going to refer him to neurology and strongly advised him to take his medication. ED Disposition - Plan for ED Patient: Disposition: Home or Assisted Living Diagnosis: Epileptic seizure Instructions: ED Seizure Recurrent Adult Referrals: Austin Skinner MD [Primary Care Provider] - Keep Sandeep appointment Ritesh Salazar MD [STAFF PHYSICIAN] - As soon as possible (for neurology) Additional Instructions: I strongly encourage you to take your Tegretol and Keppra regularly. Even one missed dose can lead to a seizure. Your Tegretol level today was negative.
[2020-07-30 18:29] LABS: Carbamazepine (Tegretol) < 0.5 ug/mL (4.0-12.0)
[2020-07-30 19:00] VITALS: BP 125/95; PULSE 85; RESP 16; O2SAT 99
[2020-07-30] MEDS: carBAMazepine 200 MG Tablet PO (19:00)
== END 2020-07-30 19:01 | disposition home or self-care (01) ==
PROVIDERS: Emergency Provider Emergency Medicine; PCP Family Medicine
DX: G40.909 Epilepsy, unspecified, not intractable, without status epilepticus (principal); F17.200 Nicotine dependence, unspecified, uncomplicated
CPT/HCPCS: 80156; 96365; 99285; A4216

== ENCOUNTER 2020-08-09 03:28 | Emergency (ER) | payer MEDICAID, SELFPAY ==
[2020-08-09 03:29] VITALS: BP 124/75; PULSE 66; RESP 18; TEMP 36.3; O2SAT 98; BMI 26.2
--- NOTE | 2020-08-09 03:34 | ED.DCSUM_ITS ---
History of Present Illness Chief Complaint: Seizure Informant: Patient, Manager Managed Care Narrative: 44-year old male epileptic patient presents following a seizure. He was at the [employer] in the bathroom and was found. He tells me that since his last ED visit he has run out of his medications. He does not have any upcoming appointment scheduled. He states he has a way of pain for his medicines he just needs a prescription. EMS notes abrasions to the left side of the temporal scalp. They states that he was post ictal for them and has slowly been coming around but not achieved his normal baseline per them. - Past Medical History (1) Seizure disorder Status: Chronic Past Medical History - Allergies and Home Meds Allergies/Adverse Reactions: Allergies Penicillins Allergy (Verified 08/09/20 03:33) Rash Sulfa (Sulfonamide Antibiotics) Allergy (Verified 08/09/20 03:33) Rash Primary Care Physician: Austin Skinner MD [Primary Care Provider] - As soon as possible Ritesh Salazar MD [STAFF PHYSICIAN] - As soon as possible (for Neurology) Prior records reviewed: Yes Past Medical History: - - Epilepsy Surgical History: noncontributory Lives: Homeless Smoking Status: Current every day smoker Review of Systems General: Denies: Chills, Fever, Sweats Eyes: Denies: Visual changes - bilaterally, Diplopia ENT: Denies: Rhinorrhea, Sore throat Cardiovascular: Denies: Chest pain, Palpitations Respiratory: Denies: Dyspnea, Cough, Dyspnea on exertion Gastrointestinal: Denies: Abdominal pain, Nausea, Vomiting, Diarrhea, Melena, Hematochezia Genitourinary: Denies: Dysuria, Hematuria, Frequency Musculoskeletal: Denies: Back pain, Extremity Pain Skin: Denies: Rash, Wounds Neurological: Reports: - - Seizures. Denies: Headache, Weakness, Numbness Physical Exam Vital Signs/Narrative: Vital Signs Temp Pulse Resp BP Pulse Ox 08/09/20 03:29 97.4 F L 66 18 124/75 H 98 Inital Vital Signs reviewed: Yes General: Well nourished, Well developed, No Acute Distress Head: Normocephalic, Trauma - Abrasions left temporal scalp Eyes: Perrl, EOMI ENT: Moist mucous membranes, No rhinorrhea Neck: Supple, Nontender Cardiovascular: Regular rate, Regular rhythm, No murmurs Respiratory: No distress, CTA bilaterally, Chest nontender Abdomen: Soft, Nontender, Nondistended, Normal bowel sounds Back: Nontender, Normal Inspection Extremities: Nontender, No edema Skin: Normal color, No rash Neurological: Alert, Oriented x3, Cranial nerves II-XII grossly intact, Normal Strength, Normal Sensation Psychological: Normal affect, Normal Mood Diagnostic/Tx/Re-eval Clinical Impression(s) from Imaging Studies Brain CT 08/09/20 03:34 IMPRESSION: No significant change. No intracranial hemorrhage or acute intracranial disease identified. Individualized dose optimization techniques were used for this CT. at 0438 Reported and signed by: Can Garcia MD Electronically Signed: Can Garcia, at 4:36 EDT Tel , Service support , - Medical Decision Making CT the brain was obtained to rule out trauma. Patient received a gram of Keppra IV and Tegretol p.o. repeat exam shows that he has achieved his neurologic bas antionette. I can write him his seizure medications but he needs to make it a priority for his health to get follow-up. He knows that he cannot go without his medications or he has seizures. ED Disposition - Plan for ED Patient: Disposition: Home or Assisted Living Diagnosis: Epileptic seizure Instructions: ED Seizure Recurrent Adult Prescriptions: Levetiracetam [Keppra] 500 mg PO BID #60 tab Prescription Printed Carbamazepine [Tegretol] 200 mg PO TIDCM #90 tab Prescription Printed Referrals: Austin Skinner MD [Primary Care Provider] - As soon as possible Ritesh Salazar MD [STAFF PHYSICIAN] - As soon as possible (for Neurology)
--- NOTE | 2020-08-09 03:34 | CT_ITS ---
HISTORY: SEIZURE WITH ABRASIONS TO LT SIDE OF HEAD EXAMINATION: CT Head or Brain W/O Contrast Injection TECHNIQUE: Multiple axial images were obtained of the brain without intravenous contrast. A radiation dose optimization technique was used for this scan. IV Contrast dosage and agent: None COMPARISON: 07/15/2020 FINDINGS: Mild motion artifact. Normal ventricles. No intracranial mass, hemorrhage, or acute parenchymal abnormality. Posterior fossa structures are unremarkable. No suspicious extra-axial fluid collection. Intact calvarium. No fracture seen. As visualized, the mastoids and paranasal sinuses appear clear. CT/Brain/Head without Contrast IMPRESSION: No significant change. No intracranial hemorrhage or acute intracranial disease identified. Individualized dose optimization techniques were used for this CT. at 0438 Reported and signed by: Can Garcia MD Electronically Signed: Can Garcia, at 4:36 EDT Tel , Service support ,
[2020-08-09] MEDS: levETIRAcetam IV 1,000 MG/100 ML BAG 400 MG IV (03:51)
[2020-08-09] MEDS: carBAMazepine 200 MG Tablet PO (03:53)
[2020-08-09 04:55] VITALS: BP 122/93; PULSE 76; RESP 16; O2SAT 96
--- NOTE | 2020-08-09 06:34 | NURSING ---
112 dr roach acs
== END 2020-08-09 07:20 | disposition home or self-care (01) ==
PROVIDERS: Emergency Provider Emergency Medicine; PCP Family Medicine
DX: G40.909 Epilepsy, unspecified, not intractable, without status epilepticus (principal); F17.200 Nicotine dependence, unspecified, uncomplicated; Z88.0 Allergy status to penicillin; Z88.2 Allergy status to sulfonamides
CPT/HCPCS: 70450; 96365; 99285; J7050

== ENCOUNTER 2020-08-22 09:23 | Emergency (ER) | payer MEDICAID, SELFPAY ==
[2020-08-22 09:24] VITALS: BP 131/81; PULSE 81; RESP 16; TEMP 36.6; O2SAT 98; BMI 26.4
--- NOTE | 2020-08-22 09:48 | ED.RN ---
[place] [employer] OFFICER ON SCENE. STATES A VIAL FELL FROM PT POCKET PT WAS PLACED ON COT. POLICE CONTACTED. VIAL POSITIVE FOR METH. PT DENIES. HEART RATE 70 UPON POLICE ARRIVAL AND 120 BEING QUESTIONED
[2020-08-22 09:55] LABS: Absolute Lymphocyte Count 2.62 X10^3/uL (0.83-4.51); Absolute Neutrophil Count 1.5 X10^3/uL (2.0-7.7); Basophil# 0.04 X10^3/uL; Basophil% 0.7 % (0-1); Eosinophil# 0.48 X10^3/uL; Eosinophils% 8.7 % (0-5); Hematocrit 44.3 % (40-54); Lymphocyte # 2.62 X10^3/ul (4.0); Lymphocyte % 47.5 % (19-41); Mean Corp Hgb Conc 33.9 g/dL (32-36); Mean Corpuscular Hgb 32.4 pg (27.0-32.0); Mean Corpuscular Volume 95.7 fL (80-94); Mean Platelet Vol. 9.7 fl (6.2-12.0); Monocyte# 0.91 X10^3/uL; Monocyte% 16.5 % (0-10); NRBC Flagged by Analyzer 0 % (0-5); Neutrophil # 1.46 X10^3/uL (2.7-7.7); Neutrophil % 26.4 % (47-70); Platelet Count 298 K/mm3 (150-450); RBC Distribution Width CV 12.9 % (11.6-14.6); RBC Distribution Width SD 45.3 fl (35.1-43.9); Red Blood Count 4.63 M/mm3 (4.6-6.2); White Blood Count 5.5 K/mm3 (4.4-11.0)
[2020-08-22 10:10] LABS: Anion Gap 9 (5-15); BUN 16 mg/dL (7-18); BUN/Creat Ratio 11.9 RATIO (10-20); Calcium,Total 9.4 mg/dL (8.5-10.1); Chloride 107 mmol/L (98-107); Creatinine, Serum 1.34 mg/dL (0.70-1.30); EST Glomerular Filtration Rate 62 mL/min (>60); Est Glom Filt Rate - Afr Amer 75 mL/min (>60); Estimated Creatinine Clearance 68.77 ml/min; Glucose 86 mg/dL (74-106); Potassium 4.1 mmol/L (3.5-5.1); Sodium Level 141 mmol/L (136-145)
--- NOTE | 2020-08-22 10:13 | ED.VIS.GEN ---
History of Present Illness Chief Complaint: Seizure Informant: Patient Narrative: Patient is a 44-year-old male with a past medical history of seizure disorder who presents to the emergency department for a seizure. He states that he gets them very frequently. The last was about 1 month ago. He is on Tegretol and Keppra for this. He states he has been compliant with this. His seizure lasted approximately 1 minute. As he typically gets brought into the emergency department and then discharged right away. Patient is denying drug use but apparently at the scene he had a vial of methamphetamine fall out of his pocket. Patient currently denying any symptoms. No headache or vision changes. No chest pain or shortness of breath. He denies any abdominal pain or nausea/vomiting. Patient states he has been sleeping well. He does drink a lot of caffeine. He follows with his PCP for his seizure disorder. Past Medical History - Allergies and Home Meds Allergies/Adverse Reactions: Allergies Penicillins Allergy (Verified 08/22/20 09:30) Rash Sulfa (Sulfonamide Antibiotics) Allergy (Verified 08/22/20 09:30) Rash Primary Care Physician: Austin Skinner MD [Primary Care Provider] - Prior records reviewed: Yes Surgical History: noncontributory Smoking Status: Current every day smoker Review of Systems All systems negative except as indicated General: Denies: Chills, Fever, Sweats Eyes: Denies: Visual changes - bilaterally, Diplopia ENT: Denies: Rhinorrhea, Sore throat Cardiovascular: Denies: Chest pain, Palpitations Respiratory: Denies: Dyspnea, Cough, Dyspnea on exertion Gastrointestinal: Denies: Abdominal pain, Nausea, Vomiting, Diarrhea Genitourinary: Denies: Dysuria, Hematuria, Frequency Musculoskeletal: Denies: Back pain, Extremity Pain Skin: Denies: Rash, Wounds Neurological: Denies: Headache, Weakness, Numbness Physical Exam Vital Signs/Narrative: Vital Signs Temp Pulse Resp BP Pulse Ox 08/22/20 09:24 97.9 F 81 16 131/81 H 98 Inital Vital Signs reviewed: Yes General: Well nourished, Well developed, No Acute Distress Head: Normocephalic, Atraumatic Eyes: Perrl, EOMI ENT: Moist mucous membranes, No rhinorrhea Neck: Supple, Nontender Cardiovascular: Regular rate, Regular rhythm, No murmurs Respiratory: No distress, CTA bilaterally, Chest nontender Abdomen: Soft, Nontender, Nondistended, Normal bowel sounds Back: Nontender, Normal Inspection Extremities: Nontender, No edema Skin: Normal color, No rash Neurological: Alert, Oriented x3, Cranial nerves II-XII grossly intact, Normal Strength, Normal Sensation Psychological: Normal affect, Normal Mood Diagnostic/Tx/Re-eval - Medical Decision Making Patient presents to the ED for seizure. He has a history of this before in the past. Upon arrival to the emerge department vital signs within normal limits. Does not appear in any acute distress. Back to baseline at this time. Able to ambulate on his own power. Basic lab work checked and did not show any acute abnormality. At this time patient be discharged home in stable condition. He last took his Keppra and Tegretol last night and has this at home to take again. He is to follow-up with his PCP. Warning signs and symptoms for which to return to the emergency department are reviewed. He understands and is agreeable with this plan. Patient discharged home in stable condition. All questions answered. ED Disposition - Plan for ED Patient: Disposition: Home or Assisted Living Diagnosis: Seizure Instructions: ED Seizure Recurrent Adult Referrals: Austin Skinner MD [Primary Care Provider] - 2 Days
[2020-08-22 10:30] VITALS: BP 119/78; PULSE 81; RESP 16; O2SAT 99
== END 2020-08-22 10:32 | disposition home or self-care (01) ==
PROVIDERS: Emergency Provider Emergency Medicine; PCP Family Medicine
DX: G40.909 Epilepsy, unspecified, not intractable, without status epilepticus (principal); F17.200 Nicotine dependence, unspecified, uncomplicated; Z88.0 Allergy status to penicillin; Z88.2 Allergy status to sulfonamides
CPT/HCPCS: 80048; 85025; 99284; A4216

== ENCOUNTER 2020-08-30 08:12 | Emergency (ER) | payer MEDICAID, SELFPAY ==
[2020-08-30 08:13] VITALS: BP 119/87; PULSE 98; RESP 20; TEMP 36.8; O2SAT 99; BMI 28.2
--- NOTE | 2020-08-30 08:18 | ED.VIS.GEN ---
History of Present Illness Chief Complaint: Seizure Informant: Patient Narrative: 44-year-old male with known seizure disorder and medical noncompliance was at work today when he is had a reported 5-minute generalized seizure. He states that he fell from a standing position. He states he has some pain on the right side of his neck. He denies any paralysis or paresthesias. He states he is feeling back to his baseline. I saw the patient recently and he told me he did not have any more of his medicines so I wrote him prescriptions for them. He states that those prescriptions are at the pharmacy but he cannot get them filled because he is waiting from his insurance card from [employer] to come so he can get them filled. He has not had a medicine reportedly for 1 week. He states he has not had a seizure since his last visit which was on 22 August 2020. Past Medical History - Allergies and Home Meds Allergies/Adverse Reactions: Allergies Penicillins Allergy (Verified 08/30/20 08:17) Rash Sulfa (Sulfonamide Antibiotics) Allergy (Verified 08/30/20 08:17) Rash Primary Care Physician: Austin Skinner MD [Primary Care Provider] - As soon as possible Past Medical History: - - Epilepsy Surgical History: noncontributory Smoking Status: Current every day smoker Review of Systems General: Denies: Chills, Fever, Sweats Eyes: Denies: Visual changes - bilaterally, Diplopia ENT: Denies: Rhinorrhea, Sore throat Cardiovascular: Denies: Chest pain, Palpitations Respiratory: Denies: Dyspnea, Cough, Dyspnea on exertion Gastrointestinal: Denies: Abdominal pain, Nausea, Vomiting, Diarrhea, Melena, Hematochezia Genitourinary: Denies: Dysuria, Hematuria, Frequency Musculoskeletal: Reports: Neck pain. Denies: Back pain, Extremity Pain Skin: Denies: Rash, Wounds Neurological: Reports: - - Seizures. Denies: Headache, Weakness, Numbness Physical Exam Vital Signs/Narrative: Vital Signs Temp Pulse Resp BP Pulse Ox 08/30/20 08:13 98.3 F 98 20 H 119/87 H 99 Inital Vital Signs reviewed: Yes General: Well nourished, Well developed, No Acute Distress Head: Normocephalic, Atraumatic Eyes: Perrl, EOMI ENT: Moist mucous membranes, No rhinorrhea Neck: Supple, - - Right paraspinal tenderness to palpation no midline tenderness. Cardiovascular: Regular rate, Regular rhythm, No murmurs Respiratory: No distress, CTA bilaterally, Chest nontender Abdomen: Soft, Nontender, Nondistended, Normal bowel sounds Back: Nontender, Normal Inspection Extremities: Nontender, No edema Skin: Normal color, No rash Neurological: Alert, Oriented x3, Cranial nerves II-XII grossly intact, Normal Strength, Normal Sensation Psychological: Normal affect, Normal Mood Diagnostic/Tx/Re-eval - Medical Decision Making Patient will be given Tegretol and IV Keppra. Seizure precautions were placed. I informed the gentleman that he should check with the pharmacy that if he has [employer] insurance they may be able to run it without the physical card. He notes understanding. I do not believe his neck warrants imaging. The pain is lateral and he has no midline tenderness. Appears to be more muscular in nature. Neurovascularly intact. ED Disposition - Plan for ED Patient: Disposition: Home or Assisted Living Diagnosis: Seizure disorder, Medical non-compliance, Cervical strain, acute Instructions: ED Seizure Recurrent Adult Prescriptions: Ibuprofen [Motrin] 800 mg PO TID PRN PRN #20 tab PRN Reason: Pain Prescription Printed Referrals: Austin Skinner MD [Primary Care Provider] - As soon as possible
--- NOTE | 2020-08-30 08:21 | ED.RN ---
Per pt has scripts for seizure medications but has been unable to fill d/t insurance.
[2020-08-30] MEDS: carBAMazepine 200 MG Tablet PO (08:33)
[2020-08-30] MEDS: levETIRAcetam IV 1,000 MG/100 ML BAG 400 MG IV (08:33)
[2020-08-30] MEDS: LORazepam 2 MG/ML Syringe 1 MG IV (08:35)
[2020-08-30 09:15] VITALS: BP 119/85; PULSE 92; RESP 19; O2SAT 99
== END 2020-08-30 09:16 | disposition home or self-care (01) ==
LOC: ED 08:42
PROVIDERS: Emergency Provider Emergency Medicine; PCP Family Medicine
DX: G40.909 Epilepsy, unspecified, not intractable, without status epilepticus (principal); Z91.19 Patient's noncompliance with other medical treatment and regimen; S16.1XXA Strain of muscle, fascia and tendon at neck level, initial encounter; W18.30XA Fall on same level, unspecified, initial encounter; Y93.9 Activity, unspecified; Y92.89 Other specified places as the place of occurrence of the external cause; Y99.0 Civilian activity done for income or pay; F17.200 Nicotine dependence, unspecified, uncomplicated; Z88.0 Allergy status to penicillin; Z88.2 Allergy status to sulfonamides
CPT/HCPCS: 96374; 99285; J7050; A4216

== ENCOUNTER 2020-09-02 11:57 | Emergency (ER) | payer MEDICAID, SELFPAY ==
[2020-09-02 11:58] VITALS: BP 136/87; PULSE 76; RESP 16; TEMP 36.3; O2SAT 99; BMI 29.7
--- NOTE | 2020-09-02 12:40 | ED.VISSUMM ---
- ER Visit Summary Date of Service: 09/02/20 Chief Complaint: Seizure History of Present Illness: The patient is a [address] Skinner. He has a history of seizures. He supposed to be on 200 mg of Tegretol 3 times daily and 500 of Keppra twice daily. He reports that his prescription ran out yesterday. He states that it is filled at [facility] and he has not picked it up. Today he had a seizure at court. No injuries from this did not bite his tongue or wet his pants. Review of systems: General: No fever, chills, cold sweats. Cardiovascular: No chest pain, palpitations. Respiratory: No cough, shortness of breath, dyspnea on exertion. Gastrointestinal: No abdominal pain, nausea, vomiting, diarrhea, melena, or hematochezia. Genitourinary: No dysuria, frequency, hematuria. Skin: No rash. Neuro: No headache, numbness, weakness. Physical Examination: Vitals: Stable. Afebrile. General: Well-nourished and well-developed. Head: Normocephalic atraumatic. Neck: Supple, no lymphadenopathy. No JVD. Nontender. Cardiovascular: Regular rate and rhythm. No murmurs. Respiratory: No respiratory distress. Clear to auscultation bilaterally. Abdominal: Soft, nontender, nondistended, normal bowel sounds. No guarding, rebound, or peritoneal signs. Back: Nontender. Extremities: Nontender, no edema. Skin: Normal color, no rash. Neurologic: Alert and oriented ?3. Cranial nerves II through XII are intact. Normal strength and sensation. Psych: Normal affect. Emergency Department Course and Treatment: Patient was given a dose of Tegretol and Keppra p.o. He is rested comfortably. Treatment Plan: Patient is instructed not to drive. Take his Tegretol and Keppra as prescribed. Follow-up his primary care physician 1 to 2 days if not improving. Return to the emergency department for any worsening symptoms. Disposition: To home in improved and stable condition. Impression: 1. Breakthrough seizure with medication, noncompliance. This note was generated with [employer] software. It may contain incorrect words, spelling, and punctuation that were not noted in review of the chart prior to signing ED Disposition - Plan for ED Patient: Disposition: Home or Assisted Living Instructions: ED Seizure Recurrent Adult Referrals: Austin Skinner MD [Primary Care Provider] - 1-2 Days if not improving
[2020-09-02] MEDS: carBAMazepine 200 MG Tablet PO (12:55)
[2020-09-02] MEDS: levETIRAcetam 500 MG Tablet PO (12:55)
== END 2020-09-02 12:57 | disposition home or self-care (01) ==
LOC: ED 12:56
PROVIDERS: Emergency Provider Emergency Medicine; PCP Family Medicine
DX: G40.909 Epilepsy, unspecified, not intractable, without status epilepticus (principal); Z91.19 Patient's noncompliance with other medical treatment and regimen; F17.210 Nicotine dependence, cigarettes, uncomplicated; Z87.820 Personal history of traumatic brain injury
CPT/HCPCS: 99284

== ENCOUNTER 2020-09-10 15:43 | Emergency (ER) | payer MEDICAID, SELFPAY ==
[2020-09-10 15:44] VITALS: BP 151/100; PULSE 101; RESP 18; TEMP 36.5; O2SAT 96
[2020-09-10 15:45] VITALS: BP 151/100; PULSE 101; RESP 18; TEMP 36.5; O2SAT 96; BMI 27.6
--- NOTE | 2020-09-10 16:05 | ED.VISSUMM ---
- ER Visit Summary Date of Service: 09/10/20 Chief Complaint: Seizure with a history of seizures History of Present Illness: The patient is a 44 M history of seizure disorder. He supposed to be on Tegretol and Keppra but he does not have any money and has not been able to get his prescriptions filled. He states he has Medicaid though. Currently he is staying at [facility] [place]. Today he was at a gas station near the [facility] when he had a seizure fell and hit his head. He denies other complaints. He denies any numbness. He denies any significant neck pain. Physical Examination: Middle-aged male no acute distress vital signs stable afebrile. Pulse ox 96% on room air no hypoxia. H EENT exam pupils round reactive laser motions are intact. Dentition intact. Is abrasion to his left face and forehead. No nasal trauma or deformity. C-spine nontender trachea midline normal range of motion of his neck. Normal flexion-extension. Lungs clear to auscultation bilaterally. Heart regular rhythm no murmur. Rate about 95. Chest wall nontender. No ecchymosis or bruising no subcu air crepitance. Abdomen soft nontender normal bowel sounds no peritoneal signs. 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 Pelvic girdle intact. Patient is moving all 4 extremities. Neurovascular intact. No deformity. 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 Bilateral normal dorsi and plantar flexion. Back nontender. Spine nontender. GCS of 15. Test Results: None Emergency Department Course and Treatment: Acute on chronic seizure. Patient's been seen here multiple times for recurrent seizures. His exam other than the facial abrasion is unremarkable. I do not think he needs any imaging or labs. He has had multiple lab evaluations including CBCs and chemistries all of which been unremarkable. I am going to have the social work assistant talk to him because I am happy to write him for prescriptions for his seizure medication if he can get them filled. We are in to get his prescriptions filled here prior to discharge and he will be given a dose of each of his medications Tegretol and Keppra before he leaves. Treatment Plan: [] Disposition: Discharge Impression: Acute seizure History of seizure disorder Noncompliant with medications This note was generated with Via dictation software. It may contain incorrect words, spelling, and punctuation that were not noted in review of the chart prior to signing ED Disposition - Plan for ED Patient: Disposition: Home or Assisted Living Instructions: ED Seizure, Recurrent (Adult) Prescriptions: levETIRAcetam tablet [Keppra tablet] 500 mg PO BID #60 tab Prescription Printed Carbamazepine [Tegretol] 200 mg PO TIDCM #90 tab Prescription Printed Referrals: Austin Skinner MD [Primary Care Provider] - As Needed Additional Instructions: If at all possible take your seizure medications as prescribed. Follow-up with your doctor as needed. Return if severe headache, vomiting, not acting correctly or feeling worse.
--- NOTE | 2020-09-10 16:11 | ED.DEP ---
ED Disposition - Plan for ED Patient: Disposition: Home or Assisted Living Instructions: ED Seizure, Recurrent (Adult) Prescriptions: levETIRAcetam tablet [Keppra tablet] 500 mg PO BID #60 tab Prescription Printed Carbamazepine [Tegretol] 200 mg PO TIDCM #90 tab Prescription Printed Referrals: Austin Skinner MD [Primary Care Provider] - As Needed Additional Instructions: If at all possible take your seizure medications as prescribed. Follow-up with your doctor as needed. Return if severe headache, vomiting, not acting correctly or feeling worse.
[2020-09-10] MEDS: levETIRAcetam 500 MG Tablet PO (16:43)
[2020-09-10] MEDS: carBAMazepine 200 MG Tablet PO (16:44)
[2020-09-10 16:45] VITALS: BP 135/84; PULSE 88; RESP 18; O2SAT 98
== END 2020-09-10 16:47 | disposition home or self-care (01) ==
PROVIDERS: Emergency Provider Emergency Medicine; PCP Family Medicine
DX: G40.909 Epilepsy, unspecified, not intractable, without status epilepticus (principal); Z91.14 Patient's other noncompliance with medication regimen; S00.81XA Abrasion of other part of head, initial encounter; W18.09XA Striking against other object with subsequent fall, initial encounter; Y93.89 Activity, other specified; Y92.524 Gas station as the place of occurrence of the external cause; Y99.8 Other external cause status
CPT/HCPCS: 99284

== ENCOUNTER 2020-10-09 09:42 | Emergency (ER) | payer MEDICAID, SELFPAY ==
[2020-10-09 09:43] VITALS: BP 99/78; PULSE 81; RESP 19; TEMP 36.6; O2SAT 99; BMI 27.6
--- NOTE | 2020-10-09 09:57 | ED.DCSUM_ITS ---
- ER Visit Summary Date of Service: 10/09/20 Chief Complaint: Seizure History of Present Illness: The patient is a 45 M who presents after a seizure that occurred today. Patient states he has a history of grand mal seizures. Patient states he had a seizure but a friend was able to talk him through it. Patient states he had a second seizure and his friend was unable to talk him through it. Patient denies any incontinence of urine or stool. Patient denies biting his tongue. Patient denies any exposures to COVID-19. Patient denies any loss of taste or smell. Patient denies any headaches. Patient denies any nausea or vomiting. Patient denies any fevers or chills. Physical Examination: Vital signs are stable. Patient is afebrile. Patient is in no acute distress. Oral mucosa is pink and moist. Neck is supple. Trachea is midline. There is no JVD noted. Heart was regular rate and rhythm. Lungs are clear and equal bilaterally. Abdomen is soft. Bowel sounds are normal. There is no tenderness. There is no rebound or guarding noted. Skin is warm dry. Cranial nerves II through XII are intact. There are no focal motor or sensory deficits noted. Extremities are intact. There is no calf tenderness or edema. Test Results: CBC and comprehensive metabolic profile were obtained were within normal limits. Tegretol level was obtained and was low at 1.5. Emergency Department Course and Treatment: Seizure precautions were maintained. Patient was given a dose of Tegretol and Keppra here. Patient was instructed to continue his Tegretol and Keppra as prescribed. Patient was instructed to follow-up with his primary care physician in 5 to 7 days. Patient understood and was agreeable with the plan. All questions were answered. Disposition: Discharge home Impression: Seizure This note was generated with [employer] dictation software. It may contain incorrect words, spelling, and punctuation that were not noted in review of the chart prior to signing ED Disposition - Plan for ED Patient: Disposition: Home or Assisted Living Diagnosis: Seizure disorder Instructions: ED Seizure, Recurrent (Adult) Referrals: Austin Skinner MD [Primary Care Provider] - 5-7 Days
[2020-10-09 10:00] LABS: Absolute Lymphocyte Count 4.34 X10^3/uL (0.83-4.51); Absolute Neutrophil Count 3.5 X10^3/uL (2.0-7.7); Eosinophil# 0.48 X10^3/uL; Eosinophils% 4.9 % (0-5); Hematocrit 48.8 % (40-54); Hemoglobin 15.5 g/dL (13.0-16.5); Lymphocyte # 4.34 X10^3/ul (4.0); Lymphocyte % 44.6 % (19-41); Mean Corp Hgb Conc 31.8 g/dL (32-36); Mean Corpuscular Hgb 31.6 pg (27.0-32.0); Mean Corpuscular Volume 99.6 fL (80-94); Mean Platelet Vol. 9.4 fl (6.2-12.0); Monocyte# 1.25 X10^3/uL; Monocyte% 12.8 % (0-10); NRBC Flagged by Analyzer 0 % (0-5); Neutrophil # 3.54 X10^3/uL (2.7-7.7); Neutrophil % 36.5 % (47-70); Platelet Count 346 K/mm3 (150-450); RBC Distribution Width CV 13.7 % (11.6-14.6); RBC Distribution Width SD 51.1 fl (35.1-43.9); White Blood Count 9.7 K/mm3 (4.4-11.0)
[2020-10-09 10:16] LABS: ALB/GLOB Ratio 1.1 RATIO (0.9-2.4); AST(SGOT) 52 U/L (15-37); Alanine Aminotransfer ALT/SGPT 65 U/L (16-61); Alkaline Phosphatase 103 U/L (45-117); Anion Gap 11 (5-15); BUN 10 mg/dL (7-18); BUN/Creat Ratio 7.9 RATIO (10-20); Calcium,Total 8.9 mg/dL (8.5-10.1); Chloride 107 mmol/L (98-107); Creatinine, Serum 1.27 mg/dL (0.70-1.30); EST Glomerular Filtration Rate 66 mL/min (>60); Est Glom Filt Rate - Afr Amer 79 mL/min (>60); Estimated Creatinine Clearance 71.81 ml/min; Globulin 3.7 g/dL (2.2-4.2); Glucose 106 mg/dL (74-106); Potassium 4.4 mmol/L (3.5-5.1); Protein, Total 7.7 g/dL (6.4-8.2); Sodium Level 139 mmol/L (136-145)
[2020-10-09 10:44] LABS: Carbamazepine (Tegretol) 1.5 ug/mL (4.0-12.0)
[2020-10-09] MEDS: carBAMazepine 200 MG Tablet PO (11:21)
[2020-10-09] MEDS: levETIRAcetam 500 MG Tablet PO (11:21)
[2020-10-09 11:22] VITALS: BP 138/74; PULSE 62; RESP 15; O2SAT 98
== END 2020-10-09 11:44 | disposition home or self-care (01) ==
PROVIDERS: Emergency Provider Emergency Medicine; PCP Family Medicine
DX: G40.909 Epilepsy, unspecified, not intractable, without status epilepticus (principal)
CPT/HCPCS: 80053; 80156; 85025; 99285

== ENCOUNTER 2020-10-20 11:47 | Emergency (ER) | payer MEDICAID, SELFPAY ==
[2020-10-20 11:48] VITALS: BP 125/72; PULSE 95; RESP 18; TEMP 36.9; O2SAT 97; BMI 27.3
--- NOTE | 2020-10-20 12:05 | EKG12_ITS ---
Test Reason : Blood Pressure : / mmHG Vent. Rate : 073 BPM Atrial Rate : 073 BPM P-R Int : 158 ms QRS Dur : 084 ms QT Int : 378 ms P-R-T Axes : 084 -06 063 degrees QTc Int : 416 ms Normal sinus rhythm with sinus arrhythmia Normal ECG Confirmed by ALLI WILLIS, CHANDANA ([id number]), manager editorial CARLOS JEFFRIES ([id number]) on 10/21/2020 10:35:38 AM Referred By: VICTORINO Confirmed By:CHANDANA CARSON MD
--- NOTE | 2020-10-20 12:05 | CT_ITS ---
STUDY: CT BRAIN WITHOUT CONTRAST REASON FOR EXAM: Male, 45 years old. Multiple seizures today, hx epilepsy. RADIATION DOSAGE (If Supplied By Facility): CTDIvol = ( 44.99 ) mGy, DLP = ( 745.49 ) mGycm TECHNIQUE: Transaxial CT imaging of the brain was performed without administration of intravenous contrast material. Individualized dose optimization techniques were used for this CT. COMPARISON: 08/09/2020. FINDINGS: Normal soft tissue structures. Old fracture of the right second metatarsal. The calvarium otherwise appears intact. Normal size ventricles and extra-axial spaces for the patient''s age. Normal white matter tracts of the cerebral hemispheres. Normal basal ganglia and thalami. Normal brainstem. Normal cerebellum. There is no intracranial hemorrhage. There are no findings of an acute ischemic infarction. Normal visualized paranasal sinuses. CT/Brain/Head without Contrast IMPRESSION: No acute intracranial process. Electronically Signed: Oseas Murray MD at 12:56 EST Tel , Service support ,
--- NOTE | 2020-10-20 12:09 | ED.DCSUM_ITS ---
History of Present Illness Chief Complaint: Seizure Informant: Patient Onset: Today Maximum Severity: Mild Narrative: Patient presents from the [facility] with questionable history for seizure he has a long history for seizure disorder reports is on Tegretol 200 mg twice daily Keppra 500 mg twice daily indicates been taking his medications,. He indicates he was actually with his when the seizure began, he has seizures weekly he is seen by physicians in the [place] area there are aware that he is having seizures despite the use of these medications it has been determined that there is no reason to change his medical regimen by his history. Again the patient indicates that he was with the when this occurred staff understand from paramedics that he was actually at the [facility] and they were called by the [facility] to have him assessed it is not documented then but he actually witnessed a seizure. The patient denies tongue biting or incontinence he denies any trauma it is noted he has a abrasion to the top of the scalp that he says occurred 3 or 4 days ago when he struck the top of the scalp against a tree he is not sure if that was related to seizure or not. He has had no coronavirus exposures no fever no cough no head neck chest or abdominal pain he has no complaints at this time he is rather jittery in the bed moving around quite a bit he denies history of tardive dyskinesia or behavioral or mental health disorders he denies alcohol or illicit drug use Past Medical History - Allergies and Home Meds Allergies/Adverse Reactions: Allergies Penicillins Allergy (Verified 10/20/20 11:51) Rash Sulfa (Sulfonamide Antibiotics) Allergy (Verified 10/20/20 11:51) Rash Primary Care Physician: Austin Skinner MD [Primary Care Provider] - Past Medical History: - - Your disorder Surgical History: noncontributory Smoking Status: Current every day smoker Review of Systems General: Reports: - - Ported seizure. Denies: Chills, Fever, Sweats Eyes: Denies: Visual changes - bilaterally, Diplopia ENT: Denies: Rhinorrhea, Sore throat Cardiovascular: Denies: Chest pain, Palpitations Respiratory: Denies: Dyspnea, Cough, Dyspnea on exertion Gastrointestinal: Denies: Abdominal pain, Nausea, Vomiting, Diarrhea, Melena, Hematochezia Genitourinary: Denies: Dysuria, Hematuria, Frequency Musculoskeletal: Denies: Back pain, Extremity Pain Skin: Denies: Rash, Wounds Neurological: Denies: Headache, Weakness, Numbness Physical Exam Vital Signs/Narrative: Vital Signs Temp Pulse Resp BP Pulse Ox 10/20/20 11:48 98.5 F 95 18 125/72 H 97 General: Well nourished, Well developed, No Acute Distress, - - Is an abrasion to the top of the scalp measuring about 2 x 6 cm it is not tender his head exam is unremarkable he is awake and alert answering questions appropriately is moving all 4 extremities his INH is 0 and he has really what appeared to be involuntary General movement Head: Normocephalic, Atraumatic Eyes: Perrl, EOMI ENT: Moist mucous membranes, No rhinorrhea Neck: Supple, Nontender Cardiovascular: Regular rate, Regular rhythm, No murmurs Respiratory: No distress, CTA bilaterally, Chest nontender Abdomen: Soft, Nontender, Nondistended, Normal bowel sounds Back: Nontender, Normal Inspection Extremities: Nontender, No edema Skin: Normal color, No rash Neurological: Alert, Oriented x3, Cranial nerves II-XII grossly intact, Normal Strength, Normal Sensation Psychological: Normal affect, Normal Mood Diagnostic/Tx/Re-eval - Medical Decision Making Given all of the above the negative neurologic exam he has no tongue biting no incontinence he cannot really describe what happened paramedics indicated to staff that he had some issue at [facility] and they called EMS for him on their arrival he apparently was awake and alert, given all the above ED screening evaluation ED screening evaluation was generally unremarkable nothing acute on any of the studies see those reports his Tegretol level was 0 even though he tells me he has been taking 200 mg twice daily, he was given oral Tegretol bolus, he was given IV pro bolus He has had many many ED visits for same there is a history of noncompliance, I should mention it is not been documented or witnessed that he actually had a seizure from anybody that staff was able to contact, the patient states he does not know why the [facility] individuals called EMS We discussed further management options we discussed admission versus discharge he does not wish to be admitted he assures me he has his medications and he has been taking them as a precaution I provided him with prescriptions in addition he has been seen by social worker psychiatric related to frequent ED visits potential lack of follow-up, potential difficulty getting medications and I have asked that social worker psychiatric be made aware of his presentation today so they could try to contact him to provide additional support, He understands and agrees and wants to be discharged Final impression seizure by history with history of seizure disorder noncompliance Disposition is home stable ED Disposition - Plan for ED Patient: Diagnosis: Seizure disorder Instructions: ED Seizure, Recurrent (Adult) Prescriptions: Levetiracetam [Keppra] 500 mg PO BID #60 tab Prescription Printed Carbamazepine [Tegretol] 200 mg PO BIDCM #60 tab Prescription Printed Referrals: Austin Skinner MD [Primary Care Provider] -
[2020-10-20 12:17] LABS: Absolute Lymphocyte Count 1.88 X10^3/uL (0.83-4.51); Absolute Neutrophil Count 5.4 X10^3/uL (2.0-7.7); Basophil# 0.07 X10^3/uL; Basophil% 0.8 % (0-1); Eosinophil# 0.23 X10^3/uL; Eosinophils% 2.7 % (0-5); Hematocrit 46.2 % (40-54); Hemoglobin 15.1 g/dL (13.0-16.5); Lymphocyte # 1.88 X10^3/ul (4.0); Lymphocyte % 22.1 % (19-41); Mean Corp Hgb Conc 32.7 g/dL (32-36); Mean Corpuscular Hgb 31.8 pg (27.0-32.0); Mean Corpuscular Volume 97.3 fL (80-94); Mean Platelet Vol. 9.8 fl (6.2-12.0); Monocyte# 0.93 X10^3/uL; Monocyte% 10.9 % (0-10); NRBC Flagged by Analyzer 0 % (0-5); Neutrophil # 5.39 X10^3/uL (2.7-7.7); Neutrophil % 63.3 % (47-70); Platelet Count 320 K/mm3 (150-450); RBC Distribution Width CV 13.5 % (11.6-14.6); RBC Distribution Width SD 48.7 fl (35.1-43.9); Red Blood Count 4.75 M/mm3 (4.6-6.2); White Blood Count 8.5 K/mm3 (4.4-11.0)
[2020-10-20 12:28] LABS: Anion Gap 13 (5-15); BUN 14 mg/dL (7-18); BUN/Creat Ratio 10.8 RATIO (10-20); Chloride 105 mmol/L (98-107); EST Glomerular Filtration Rate 64 mL/min (>60); Est Glom Filt Rate - Afr Amer 77 mL/min (>60); Estimated Creatinine Clearance 70.15 ml/min; Glucose 86 mg/dL (74-106); Potassium 4.2 mmol/L (3.5-5.1); Sodium Level 139 mmol/L (136-145)
[2020-10-20 12:33] LABS: Carbamazepine (Tegretol) 0.9 ug/mL (4.0-12.0)
[2020-10-20] MEDS: carBAMazepine 200 MG Tablet 400 MG PO (12:38)
[2020-10-20] MEDS: 0.9% Normal Saline 1,000 ML 1000 ML IV (12:39)
[2020-10-20 13:24] VITALS: BP 110/66; PULSE 48; RESP 18; O2SAT 98
== END 2020-10-20 13:52 | disposition home or self-care (01) ==
PROVIDERS: Emergency Provider Emergency Medicine; PCP Family Medicine
DX: G40.909 Epilepsy, unspecified, not intractable, without status epilepticus (principal); Z91.19 Patient's noncompliance with other medical treatment and regimen; S00.01XA Abrasion of scalp, initial encounter; W22.8XXA Striking against or struck by other objects, initial encounter; Y93.89 Activity, other specified; Y92.89 Other specified places as the place of occurrence of the external cause; Y99.9 Unspecified external cause status; F17.200 Nicotine dependence, unspecified, uncomplicated; Z88.0 Allergy status to penicillin; Z88.2 Allergy status to sulfonamides
CPT/HCPCS: 70450; 80048; 80156; 85025; 93005; 96365; 99285; J7030

== ENCOUNTER 2020-11-02 08:39 | Emergency (ER) | payer MEDICAID, SELFPAY ==
[2020-11-02 08:40] VITALS: BP 144/89; PULSE 98; RESP 23; TEMP 36.9; O2SAT 97; BMI 27.0
--- NOTE | 2020-11-02 08:51 | ED.DCSUM_ITS ---
- ER Visit Summary Date of Service: 11/02/20 Chief Complaint: Acute seizure History of Present Illness: The patient is a 45 M history of seizure disorder. Patient states he has seizure medications both Tegretol and Keppra prescriptions but has not been taking them. Today he had a seizure to [facility] where he staying. He denies any recent illness. He denies any trauma. He denies any headache or chest pain or abdominal pain. No recent fevers. He denies any injuries today when he had the seizure. He is seen seen here multiple times for recurrent seizures. He had unremarkable labs about 12 days ago. Physical Examination: Middle-aged male no acute distress. Vital signs are stable afebrile. H EENT exam unremarkable. No dentition. There is no signs of trauma to his face or scalp. No tenderness or swelling. Pupils round reactive light extra motions are intact. C-spine nontender. Trachea midline. Lungs clear to auscultation bilaterally. Heart regular rhythm no murmur. Abdomen soft nontender normal bowel sounds no peritoneal signs. Chest were nontender. Pelvic girdle intact. Patient is moving all 4 extremities. Neurovascularly intact. 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 He has dorsi and plantar flexion. His extremities are nontender. Nondeformed. There is no edema. Back nontender. Neurologically he is awake. He knows where he is at. He knows the month. He knows the year. He has no focal motor deficits. Currently is not really post ictal. Test Results: None. I reviewed his most recent labs are unremarkable. Emergency Department Course and Treatment: Patient with recurrent seizures and noncompliant with his medications. He tells me he has prescriptions for both his medications and he can get that filled. Treatment Plan: Start taking his seizure medications which are both Keppra and Tegretol. Follow-up with his primary care physician. Return if worse. Disposition: Discharge Impression: Recurrent seizure with history of seizure disorder Medical noncompliance of medication This note was generated with [employer] dictation software. It may contain incorrect words, spelling, and punctuation that were not noted in review of the chart prior to signing ED Disposition - Plan for ED Patient: Referrals: Austni Skinner MD [Primary Care Provider] -
--- NOTE | 2020-11-02 08:56 | ED.DEP ---
ED Disposition - Plan for ED Patient: Disposition: Home or Assisted Living Instructions: ED Seizure, Recurrent (Adult) Referrals: Austin Skinner MD [Primary Care Provider] - As soon as possible Additional Instructions: Absolutely extremely important that you restart your seizure medications as you are supposed to take them. If you not take any medications you will continue to have seizures. Follow-up with your doctor. Return emergency department if you are feeling worse.
== END 2020-11-02 09:14 | disposition home or self-care (01) ==
PROVIDERS: Emergency Provider Emergency Medicine; PCP Family Medicine
DX: G40.909 Epilepsy, unspecified, not intractable, without status epilepticus (principal); Z91.14 Patient's other noncompliance with medication regimen; Z72.0 Tobacco use
CPT/HCPCS: 99283

== ENCOUNTER 2020-11-04 19:33 | Emergency (ER) | payer MEDICAID, SELFPAY ==
[2020-11-04 19:34] VITALS: BP 128/67; PULSE 91; RESP 24; TEMP 36.2; O2SAT 99; BMI 24.9
--- NOTE | 2020-11-04 19:41 | ED.RN ---
PT WITH EDEMA AND BRUISING TO LEFT EYE X 2 DAYS PER PT REPORT.
--- NOTE | 2020-11-04 19:51 | CT_ITS ---
STUDY: CT BRAIN WITHOUT CONTRAST REASON FOR EXAM: Male, 45 years old. SEIZURES RADIATION DOSAGE (If Supplied By Facility): CTDIvol = ( 44.99 ) mGy, DLP = ( 745.49 ) mGycm TECHNIQUE: Transaxial CT imaging of the brain was performed without administration of intravenous contrast material. Individualized dose optimization techniques were used for this CT. COMPARISON: 10/20/2020 FINDINGS: Normal soft tissue structures. Normal calvarium. Normal size ventricles and extra-axial spaces for the patient''s age. Normal white matter tracts of the cerebral hemispheres. Normal basal ganglia and thalami. Normal brainstem. Normal cerebellum. Partial empty sella deformity of uncertain significance. There is no intracranial hemorrhage. There are no findings of an acute ischemic infarction. Normal visualized paranasal sinuses No significant change since prior exam. CT/Brain/Head without Contrast IMPRESSION: Partial empty sella once of uncertain significance. Otherwise normal unenhanced CT of the brain MRI may be helpful for further evaluation if clinically warranted Electronically Signed: Ruben Granados MD at 20:48 EST , Service support ,
[2020-11-04] MEDS: LORazepam 2 MG/ML Syringe 1 MG IV (20:03)
[2020-11-04] MEDS: levETIRAcetam IV 1,000 MG/100 ML BAG 400 MG IV (20:03)
--- NOTE | 2020-11-04 20:04 | ED.VIS.GEN ---
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 He has noncompliance with his medication due to not being able to afford them. Patient is been seen in the ER frequently secondary to seizures. He is brought in by vidhya bernard from the [facility] for seizure. When I go asked the patient about the seizure he cannot remember any details. He then starts to have seizure in the ER. Patient is supposed to be taking Tegretol and Keppra. He is unable to tell me when he last took his medications. - Past Medical History (1) Seizure disorder Status: Chronic Past Medical History - Allergies and Home Meds Allergies/Adverse Reactions: Allergies Penicillins Allergy (Verified 11/04/20 19:34) Rash Sulfa (Sulfonamide Antibiotics) Allergy (Verified 11/04/20 19:34) Rash Primary Care Physician: Austin Skinner MD [Primary Care Provider] - Prior records reviewed: Yes Surgical History: noncontributory Lives: - - [facility] Smoking Status: Current every day smoker Review of Systems ROS: Unable to Obtain Physical Exam Vital Signs/Narrative: Vital Signs Temp Pulse Resp BP Pulse Ox 11/04/20 19:34 97.1 F L 91 24 H 128/67 H 99 Inital Vital Signs reviewed: Yes General: Well developed Head: Normocephalic Eyes: - - Left periorbital ecchymosis ENT: Moist mucous membranes Neck: Supple Cardiovascular: Tachycardia Respiratory: No distress, CTA bilaterally Abdomen: Soft, Nontender Extremities: Nontender Skin: Normal color Neurological: Alert, - - Seizure noted with flexion of the upper extremities and extension of the legs. Symptoms subsided after approximately 2 minutes. Diagnostic/Tx/Re-eval Impressions Brain CT 11/04/20 19:51 IMPRESSION: Partial empty sella once of uncertain significance. Otherwise normal unenhanced CT of the brain MRI may be helpful for further evaluation if clinically warranted Electronically Signed: Ruben Granados MD at 20:48 EST , Service support , 11/04/20 19:51 Brain/Head without Contrast [CT] Stat Laboratory Results 11/04/20 11/04/20 20:04 20:04 WBC 9.1 RBC 4.52 L Hgb 14.5 Hct 43.8 MCV 96.9 H MCH 32.1 H MCHC 33.1 RDW Std Deviation 48.7 H RDW Coeff of Sunshine 13.6 Plt Count 314 MPV 9.3 Immature Gran % (Auto) 0.100 Neut % (Auto) 44.4 L Lymph % (Auto) 38.1 [place] % (Auto) 16.4 H Eos % (Auto) 0.7 Baso % (Auto) 0.3 Absolute Neuts (auto) 4.0 Absolute Lymphs (auto) 3.46 Nucleated RBC % 0 Sodium 139 Potassium 3.4 L Chloride 103 Carbon Dioxide 25.0 Anion Gap 11 BUN 24 H Creatinine 1.25 Estim Creat Clear Calc 80.32 Est GFR (MDRD) Af Amer 81 Est GFR (MDRD) Non-Af 67 BUN/Creatinine Ratio 19.2 Glucose 83 Calcium 9.0 - Medical Decision Making Patient appeared to have a seizure on my initial evaluation. IV line was established he was given 1 mg of IV Ativan. Seizure had spontaneously resolved prior to medications being given. He was given 1 g of IV Keppra. CT scan of the head reveals no acute findings. Blood work is unremarkable. This time patient is awake and alert. He is tolerating p.o. He will be given a dose of his Tegretol. Patient has advises multiple times that he has medication prescriptions just has not been able get them filled. [facility] should be able to help him with his medications. [facility] also an option for him. ED Disposition - Plan for ED Patient: Disposition: Home or Assisted Living Diagnosis: Seizure Instructions: ED Seizure, Recurrent (Adult) Referrals: Austin Skinner MD [Primary Care Provider] - Additional Instructions: Contact [facility] for assistance with your medications: [phone]
[2020-11-04 20:11] LABS: Absolute Lymphocyte Count 3.46 X10^3/uL (0.83-4.51); Basophil# 0.03 X10^3/uL; Basophil% 0.3 % (0-1); Eosinophil# 0.06 X10^3/uL; Eosinophils% 0.7 % (0-5); Hematocrit 43.8 % (40-54); Hemoglobin 14.5 g/dL (13.0-16.5); Lymphocyte # 3.46 X10^3/ul (4.0); Lymphocyte % 38.1 % (19-41); Mean Corp Hgb Conc 33.1 g/dL (32-36); Mean Corpuscular Hgb 32.1 pg (27.0-32.0); Mean Corpuscular Volume 96.9 fL (80-94); Mean Platelet Vol. 9.3 fl (6.2-12.0); Monocyte# 1.49 X10^3/uL; Monocyte% 16.4 % (0-10); NRBC Flagged by Analyzer 0 % (0-5); Neutrophil # 4.02 X10^3/uL (2.7-7.7); Neutrophil % 44.4 % (47-70); Platelet Count 314 K/mm3 (150-450); RBC Distribution Width CV 13.6 % (11.6-14.6); RBC Distribution Width SD 48.7 fl (35.1-43.9); Red Blood Count 4.52 M/mm3 (4.6-6.2); White Blood Count 9.1 K/mm3 (4.4-11.0)
[2020-11-04 20:30] LABS: Anion Gap 11 (5-15); BUN 24 mg/dL (7-18); BUN/Creat Ratio 19.2 RATIO (10-20); Chloride 103 mmol/L (98-107); Creatinine, Serum 1.25 mg/dL (0.70-1.30); EST Glomerular Filtration Rate 67 mL/min (>60); Est Glom Filt Rate - Afr Amer 81 mL/min (>60); Estimated Creatinine Clearance 80.32 ml/min; Glucose 83 mg/dL (74-106); Potassium 3.4 mmol/L (3.5-5.1); Sodium Level 139 mmol/L (136-145)
[2020-11-04 21:33] VITALS: BP 122/65; PULSE 87; RESP 21; O2SAT 97
== END 2020-11-04 22:43 | disposition home or self-care (01) ==
PROVIDERS: Emergency Provider Emergency Medicine; PCP Family Medicine
DX: G40.909 Epilepsy, unspecified, not intractable, without status epilepticus (principal); F17.200 Nicotine dependence, unspecified, uncomplicated; Z88.0 Allergy status to penicillin; Z88.2 Allergy status to sulfonamides; Z91.14 Patient's other noncompliance with medication regimen
CPT/HCPCS: 70450; 80048; 85025; 96365; 96375; 99285; A4216

== ENCOUNTER 2021-02-01 08:46 | Emergency (ER) | payer MEDICAID, SELFPAY ==
[2020-11-21 10:26] VITALS: BMI 24.9
[2021-02-01 08:47] VITALS: BP 129/78; PULSE 71; RESP 16; TEMP 36; O2SAT 97; BMI 27.0
--- NOTE | 2021-02-01 08:49 | ED.DCSUM_ITS ---
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 Patient does complain of head pain/headache, which is not uncommon after seizure. He denies double vision, blurred vision loss of vision. He denies neck pain, paresthesia, anesthesia or motor weakness. He denies rhinorrhea, congestion or postnasal drainage. Denies sore throat. Denies cardiac respiratory symptoms. He denies nausea, vomiting or diarrhea. He denies problems with balance. He does admit to smoking and using marijuana. He denies alcohol use. Prior similar symptoms: Yes - States he had a seizure 1 week ago Recent Illness/Hospitalization: No - Past Medical History (1) Seizure disorder Status: Chronic Past Medical History - Allergies and Home Meds Allergies/Adverse Reactions: Allergies Penicillins Allergy (Verified 02/01/21 08:49) Rash Sulfa (Sulfonamide Antibiotics) Allergy (Verified 02/01/21 08:49) Rash Primary Care Physician: Austin Skinner MD [NON-STAFF] - Prior records reviewed: Yes Surgical History: noncontributory Lives: Spouse/ Significant Other Smoking Status: Current every day smoker Alcohol: None Drugs: Marijuana Review of Systems General: Denies: Chills, Fever, Malaise, Weight loss Eyes: Denies: Visual changes - bilaterally, Blurred Vision - bilaterally, Diplopia ENT: Denies: Rhinorrhea, Sore throat Cardiovascular: Denies: Chest pain, Palpitations Respiratory: Denies: Dyspnea, Cough, Dyspnea on exertion Gastrointestinal: Denies: Abdominal pain, Nausea, Vomiting, Diarrhea Musculoskeletal: Denies: Myalgias, Arthralgias, Neck pain, Back pain, Swelling, Extremity Pain, -, - Skin: Denies: Rash, Wounds Neurological: Reports: Headache. Denies: Weakness, Parasthesia, Numbness, -, - Endocrine: Denies: Polyuria, Polydipsia Hematologic: Denies: Easy bruising, Easy bleeding Physical Exam Inital Vital Signs reviewed: Yes General: Well nourished, Well developed, No Acute Distress Head: Normocephalic, Atraumatic Eyes: Perrl, EOMI. Negative for: Pale conjunctiva, Scleral icterus ENT: Moist mucous membranes, No rhinorrhea. Negative for: Nasal congestion Neck: Supple, Nontender, No lymphadenopathy, No JVD Cardiovascular: Regular rate, Regular rhythm, No murmurs, Normal S1, Normal S2 Respiratory: No distress, CTA bilaterally, Chest nontender Abdomen: Soft, Nontender, Nondistended, Normal bowel sounds Back: Nontender, Normal Inspection Extremities: Nontender, No edema Skin: Normal color, No rash Neurological: Alert, Oriented x3, Cranial nerves II-XII grossly intact, Normal Strength, Normal Sensation, Normal DTR Psychological: Normal affect, Normal Mood Diagnostic/Tx/Re-eval Laboratory Results 02/01/21 08:50 Carbamazepine 1.0 L The Keppra level is a send out and will not be back. Patient did receive IV Keppra. He received dose of Tegretol and discharged to home with appropriate home-going instructions - Medical Decision Making Tegretol and Keppra level was ordered. Since he admits to noncompliance I am to milligrams of Keppra was administered IV. Will administer Tegretol pending level. Patient will be observed. ED Disposition - Plan for ED Patient: Disposition: Home or Assisted Living Diagnosis: Generalized tonic-clonic seizure, Noncompliance with medications Instructions: ED Seizure, Recurrent (Adult) Referrals: Austin Skinner MD [NON-STAFF] - 1 Week Additional Instructions: 1. You need to take your antiseizure medicine as prescribed by your doctor. 2. You will need to schedule appointment for repeat blood work to assess your anticonvulsant drug levels.
[2021-02-01 09:49] VITALS: BP 125/75; PULSE 75; RESP 22; O2SAT 98
[2021-02-01] MEDS: carBAMazepine 200 MG Tablet 400 MG PO (09:50)
[2021-02-09 08:32] LABS: KEPPRA (LEVETIRACETAM) <1.0 ug/mL (10.0-40.0)
== END 2021-02-01 09:56 | disposition home or self-care (01) ==
PROVIDERS: Emergency Provider Emergency Medicine; PCP Family Medicine
DX: G40.909 Epilepsy, unspecified, not intractable, without status epilepticus (principal); Z91.14 Patient's other noncompliance with medication regimen; Z88.0 Allergy status to penicillin; Z88.2 Allergy status to sulfonamides; F17.200 Nicotine dependence, unspecified, uncomplicated; F12.90 Cannabis use, unspecified, uncomplicated
CPT/HCPCS: 80156; 80177; 96365; 99285; A4216

== ENCOUNTER 2021-02-22 17:30 | Emergency (ER) | payer MEDICAID, SELFPAY ==
[2021-02-22 17:31] VITALS: BP 145/72; PULSE 96; RESP 18; TEMP 36.7; O2SAT 97; BMI 25.8
--- NOTE | 2021-02-22 17:35 | RAD_ITS ---
STUDY: X-RAY - LEFT SHOULDER REASON FOR EXAM: Male, 45 years old. FALL SHOULDER PAIN TECHNIQUE: 2 view(s) of the shoulder. COMPARISON: None. FINDINGS: Normal glenohumeral articulation. Degenerated acromioclavicular joint. Normal acromion. Normal humeral head and visualized proximal humerus. The soft tissue structures are unremarkable. Normal visualized pulmonary apex. RAD/Shoulder min 2 Views IMPRESSION: Normal x-ray examination of the shoulder. Electronically Signed: Brenna Senior MD at 18:23 EDT Tel , Service support ,
--- NOTE | 2021-02-22 17:36 | RAD_ITS ---
STUDY: X-RAY - LEFT ELBOW REASON FOR EXAM: Male, 45 years old. Fall elbow pain trauma TECHNIQUE: 3 view(s) of the elbow. COMPARISON: None. FINDINGS: The bones of the elbow are intact and located. Mineralization is normal. Soft tissues are intact. There is no joint effusion. RAD/Elbow min 3 Views IMPRESSION: Normal x-ray examination of the elbow. Electronically Signed: Brenna Senior MD at 18:22 EDT Tel , Service support ,
--- NOTE | 2021-02-22 18:52 | EDS_ITS ---
HPI History of Present Illness HPI Narrative: 45-year-old male history of seizures. Had a seizure today in the shower and fell. Fall due to seizure complaint left shoulder and left elbow pain. He is right-hand dominant. Chief Complaint: Upper Extremity Injury Informant: patient Occured/Mechanism Mechanism/Context: Yes same level fall Onset/Context/Timing Onset: Today Timing: Continuous Quality of Pain: Dull and Aching Current Severity: Mild Maximum Severity: Mild Associated Symptoms Associated Symptoms: Negative for Parasthesia and Weakness Narrative Tetanus Immunization: Unknown Prior similar symptoms: Yes Recent Illness/Hospitalization: No PFSH PFSH Medical History Seizures Home Medications carbamazepine 200 mg PO TIDCM #90 tab 06/26/20 [Rx Last Taken 10/20/20] levetiracetam 500 mg PO BID #60 tab 08/09/20 [Rx Last Taken 10/20/20] Allergy/AdvReac Type Severity Reaction Status Date / Time Penicillins Allergy Rash Verified 02/22/21 17:34 Sulfa (Sulfonamide Allergy Rash Verified 02/22/21 17:34 Antibiotics) no surgical history Social History Smoking Status: Current every day smoker ROS ROS ED ROS Narrative Patient denies any recent illness. Review of Systems ROS Unobtainable: Denies due to encephalopathy Constitutional Constitutional ED: Denies frequent falls Eyes Eyes: Denies change in vision ENT ENT ED: Denies ear pain or sore throat Cardiovascular Cardiovascular: Denies chest pain or palpitations Respiratory/Chest Respiratory/Chest: Denies cough or dyspnea Gastrointestinal Gastrointestinal: Denies abdominal pain, diarrhea, nausea or vomiting Genitourinary Genitourinary ED: Denies dysuria or hematuria Musculoskeletal Musculoskeletal: Denies myalgias or neck pain Integumentary Denies rash Neurologic Neurologic: Denies headache(s) Psychiatric Psychiatric: Denies depression Endocrine Endocrinology: Denies polyuria Hematologic/Lymphatic Hematologic/Lymphatic: Denies easy bruising Allergic/Immunologic Allergic/Immunologic ED: Denies urticaria EXAM Physical Exam Narrative Exam Narrative: Middle-age male no acute distress vital signs stable afebrile. HEENT exam unremarkable atraumatic. Lungs are clear. Heart regular rate and rhythm. Chest nontender. Mild tenderness to his left shoulder and left elbow but normal range of motion and no deformity. Neurologically is awake alert with no focal motor deficits. Const Vital Signs: 02/22/21 17:31 Temperature 98.1 F Temperature Source Temporal Pulse Rate 96 Respiratory Rate 18 Blood Pressure 145/72 H Blood Pressure Mean 96 Pulse Ox 97 Oxygen Delivery Method Room Air Positive well nourished and well developed General Appearance ED: well developed HEENT Reports moist mucous membranes normocephalic and atraumatic; Negative for trauma or tenderness Eyes PERRL and EOMs intact bilaterally Neck full ROM and supple General: Negative for tenderness Chest Wall inspection of chest normal Resp normal respiratory effort and clear to auscultation bilaterally Cardio regular rate, regular rhythm and no murmurs GI non-tender, non-distended and no masses Auscultation: normoactive bowel sounds Palpation: soft Back/Spine no CVA tenderness Cervical Spine: Negative for cervical spine tenderness Thoracic Spine / Upper Back: Negative for thoracic spinal tenderness Lumbar Spine / Lower Back: Negative for lumbar spinal tenderness Extremity normal to inspection and full ROM Extremity Narrative: Mild tenderness left lateral shoulder and left elbow. General Extremety ED: Negative for edema General Extremity: Negative for edema Neuro oriented x3, moves all extremities and no focal motor deficits Sensorium / Orientation: alert Psych mental status grossly normal Skin Rashes: no rashes MDM MDM MDM Narrative Medical decision making narrative: Middle-age male seizure history had a seizure fell in the shower complaint left shoulder left elbow pain. Exam benign. X- rays were obtained both of his left shoulder 3 views interpreted by myself and radiologist shows no acute abnormality. Also left elbow x-ray interpreted by myself 3 views and radiologist shows no acute abnormality. No fractures or dislocations. I did discuss film results with the patient. Patient was given Motrin for pain. Radiography Diagnostic Testing: Radiology Impression Shoulder X-Ray 02/22/21 17:35 IMPRESSION: Normal x-ray examination of the shoulder. Electronically Signed: Brenna Senior MD at 18:23 EDT Tel , Service support , Elbow X-Ray 02/22/21 17:36 IMPRESSION: Normal x-ray examination of the elbow. Electronically Signed: Brenna Senior MD at 18:22 EDT Tel , Service support , Discharge Plan Triage Chief Complaint: Upper Extremity Injury ED Provider: Nasim Lowry Dx/Rx/DC Orders Clinical Impression: Acute repetitive seizure, Fall, Contusion of left shoulder, Contusion of elbow, left Instructions: ED Contusion, Elbow, ED Contusion, Upper Extremity Prescriptions: No Action carbamazepine 200 MG tablet 200 mg PO TIDCM Qty: 90 RF: 0 levetiracetam 500 MG tablet 500 mg PO BID Qty: 60 RF: 0 Primary Care Provider: Sukh Mora Referrals: Sukh Mora MD [Primary Care Provider] - 3-5 Days if not improving Activity Restrictions/Additional Instructions: Ice to the shoulder and elbow. Tylenol and Motrin for pain. Follow-up with your doctor if not improving. Your x-rays today were normal. Disposition Disposition: Home, self care
[2021-02-22 19:03] VITALS: PULSE 73; RESP 16; O2SAT 99
[2021-02-22] MEDS: Ibuprofen 600 MG Tablet PO (19:03)
== END 2021-02-22 19:14 | disposition home or self-care (01) ==
LOC: ED 19:11
PROVIDERS: Emergency Provider Emergency Medicine; PCP Family Medicine
DX: R56.9 Unspecified convulsions (principal); S40.012A Contusion of left shoulder, initial encounter; S50.02XA Contusion of left elbow, initial encounter; W18.2XXA Fall in (into) shower or empty bathtub, initial encounter; Y93.E1 Activity, personal bathing and showering; F17.200 Nicotine dependence, unspecified, uncomplicated
CPT/HCPCS: 73030; 73080; 99282

== ENCOUNTER 2021-03-05 14:14 | Emergency (ER) | payer MEDICAID, SELFPAY ==
[2021-03-05 14:15] VITALS: BP 154/86; PULSE 101; RESP 24; TEMP 36.9; O2SAT 97; BMI 25.6
--- NOTE | 2021-03-05 14:29 | EDS_ITS ---
HPI History of Present Illness Chief Complaint: Seizure Detail of Chief Complaint: Patient with a seizure that occurred prior to arrival in the emergency depa Informant: patient and friend Narrative Narrative: Patient was in a vehicle with a friend when he started having a whole body tonic-clonic seizure. Friend states that patient was shaking and drooling and unresponsive for about 8 to 10 minutes. Patient has a seizure history. Patient's had 3 seizures in the last 4 weeks. Patient currently supposed to be on Keppra and Tegretol. Patient states that he ran out of his Tegretol about 3 days ago. Patient denies recent illness. He currently has no complaints. Patient did not lose control of bowel or bladder. Prior similar symptoms: Yes [facility] Medical History (Updated 03/05/21 @ 15:[address] Vivian Calle DO) Hx of fracture of right hip Seizures Home Medications carbamazepine 200 mg PO TIDCM #90 tab 06/26/20 [Rx Last Taken 10/20/20] carbamazepine [Tegretol] 200 mg PO TID #90 tab 03/05/21 [Rx Last Taken Unknown] levetiracetam 1,000 mg PO BID 03/05/21 [History Last Taken Unknown] Allergy/AdvReac Type Severity Reaction Status Date / Time Penicillins Allergy Rash Verified 03/05/21 14:17 Sulfa (Sulfonamide Allergy Rash Verified 03/05/21 14:17 Antibiotics) Social History Smoking Status: Current every day smoker tobacco type: cigarettes ROS ROS ED Constitutional Constitutional ED: Reports systems reviewed and no addt'l complaints, except as documented; Denies body ache(s), change in weight or chills Eyes Eyes: Denies acute decrease in peripheral vision, change in vision, double vision or loss of vision ENT ENT ED: Reports none; Denies ear pain, lip swelling, loss taste/smell, neck pain, otalgia or sore throat Cardiovascular Cardiovascular: Reports none; Denies abdominal pain, chest pain with activity, leg edema, lightheadedness, palpitations, rapid heart rate or syncope Respiratory/Chest Respiratory/Chest: Reports none; Denies change in mental status, dry cough, dyspnea, hemoptysis, shortness of breath at rest or shortness of breath with exertion Gastrointestinal Gastrointestinal: Reports none; Denies abdominal pain, change in stool character, diarrhea, hematemesis, hematochezia, melena, rectal bleeding or vomiting Genitourinary Genitourinary ED: Reports none; Denies abdominal discomfort, anuria, dysuria, genital pain or polyuria Musculoskeletal Musculoskeletal: Reports none; Denies arthralgias, back pain, difficulty walking, extremity pain, muscle weakness or myalgias Integumentary Reports none; Denies abscess or rash Neurologic Neurologic: Reports none; Denies abnormal gait, confusion, focal weakness, frequent falls, headache(s), loss of vision, numbness, paresthesias, radicular pain, vertigo or weakness Psychiatric Psychiatric: Reports systems reviewed and no addt'l complaints, except as doc umented and none; Denies behavioral changes, confusion, difficulty concentrating, hallucinations, suicidal ideation, tactile hallucinations or visual hallucinations Endocrine Endocrinology: Denies none, cold intolerance, excessive sweating, fatigue or heat intolerance Hematologic/Lymphatic Hematologic/Lymphatic: Reports none; Denies anemia, easy bleeding or easy bruising Allergic/Immunologic Allergic/Immunologic ED: Denies as per HPI, none, lip swelling, mouth swelling, throat swelling, tongue swelling or hives EXAM Physical Exam Const Vital Signs: 03/05/21 14:15 Temperature 98.4 F Temperature Source Temporal Pulse Rate 101 H Respiratory Rate 24 H Blood Pressure 154/86 H Blood Pressure Mean 108 Pulse Ox 97 Oxygen Delivery Method Room Air Positive well nourished and well developed General Appearance ED: well developed and NAD HEENT Reports TM's clear and moist mucous membranes HEENT Narrative: There are no bite wounds to his tongue or the inside of his mouth. normocephalic and atraumatic; Negative for trauma or tenderness Tympanic Membrane ED: Yes TM's clear Eyes PERRL and EOMs intact bilaterally General Eye ED: Negative for pale conjunctiva or scleral icterus Neck no lymphadenopathy, supple and no JVD General: Negative for tenderness Chest Wall inspection of chest normal and palpation of chest normal Chest: Negative for tenderness Resp normal respiratory effort and clear to auscultation bilaterally Effort and Inspection: Negative for respiratory distress or pain with movement Auscultation: Negative for rhonchi, wheezes or diminished lung sounds Cardio regular rate, regular rhythm, S1 normal heart sound, S2 normal heart sound and no murmurs Peripheral Pulses: pulses 2+ throughout GI normal to inspection, nondistended, normoactive bowel sounds, soft to palpation, non-tender, non-distended and no masses Back/Spine no CVA tenderness and no thoracic nor lumbar tenderness Extremity normal to inspection General Extremety ED: Negative for edema General Extremity: Negative for edema Neuro oriented x3, CN's II-XII intact bilaterally, no sensory deficits noted and gait normal Sensorium / Orientation: awake, alert, oriented to person, oriented to place and oriented to time Motor Exam: strength 5/5 throughout and strength abnormal Psych mental status grossly normal Skin no rashes or lesions noted and no wounds MDM MDM MDM Narrative Medical decision making narrative: Patient received a milligram of Ativan IV while in the department. I did give him a dose of Tegretol as it was noted in his Tegretol level was subtherapeutic at 1.5. Patient had no further seizure activity in the department. He will be discharged with advised to follow-up with primary care physician. Lab Data Attestation: I reviewed the patient's lab results. Labs: Laboratory Results - last 24 hr 03/05/21 03/05/21 03/05/21 14:45 14:45 14:50 WBC 7.1 RBC 4.57 L Hgb 14.9 Hct 44.3 MCV 96.9 H MCH 32.6 H MCHC 33.6 RDW Std Deviation 46.5 H RDW Coeff of Sunshine 13.1 Plt Count 317 MPV 9.6 Immature Gran % (Auto) 0.100 Neut % (Auto) 40.0 L Lymph % (Auto) 44.8 H Marin % (Auto) 13.3 H Eos % (Auto) 1.1 Baso % (Auto) 0.7 Absolute Neuts (auto) 2.8 Absolute Lymphs (auto) 3.17 Nucleated RBC % 0 Sodium Cancelled Potassium Cancelled Chloride Cancelled Carbon Dioxide Cancelled Anion Gap Cancelled BUN Cancelled Creatinine Cancelled Estim Creat Clear Calc Cancelled Est GFR (MDRD) Af Amer Cancelled Est GFR (MDRD) Non-Af Cancelled BUN/Creatinine Ratio Cancelled Glucose Cancelled Calcium Cancelled Total Bilirubin Cancelled AST Cancelled ALT Cancelled Alkaline Phosphatase Cancelled Total Protein Cancelled Albumin Cancelled Globulin Cancelled Albumin/Globulin Ratio Cancelled Carbamazepine 1.5 L 03/05/21 14:50 WBC RBC Hgb Hct MCV MCH MCHC RDW Std Deviation RDW Coeff of Sunshine Plt Count MPV Immature Gran % (Auto) Neut % (Auto) Lymph % (Auto) Marin % (Auto) Eos % (Auto) Baso % (Auto) Absolute Neuts (auto) Absolute Lymphs (auto) Nucleated RBC % Sodium 141 Potassium 3.7 Chloride 105 Carbon Dioxide 21.0 Anion Gap 15 BUN 12 Creatinine 1.27 Estim Creat Clear Calc 71.81 Est GFR (MDRD) Af Amer 79 Est GFR (MDRD) Non-Af 65 BUN/Creatinine Ratio 9.4 L Glucose 92 Calcium 9.3 Total Bilirubin 0.50 AST 49 H ALT 57 Alkaline Phosphatase 82 Total Protein 7.5 Albumin 4.2 Globulin 3.3 Albumin/Globulin Ratio 1.3 Carbamazepine Discharge Plan Triage Chief Complaint: Seizure ED Provider: Vivian Calle Dx/Rx/DC Orders Clinical Impression: Seizure disorder Instructions: ED Seizure, Recurrent (Adult) Prescriptions: New carbamazepine [Tegretol] 200 mg tablet 200 mg PO TID Qty: 90 RF: 0 No Action carbamazepine 200 MG tablet 200 mg PO TIDCM Qty: 90 RF: 0 levetiracetam 500 MG tablet 1,000 mg PO BID RF: 0 Primary Care Provider: Sukh Mora Referrals: Sukh Mora MD [Primary Care Provider] - 3-5 Days
[2021-03-05] MEDS: 0.9% Normal Saline 1,000 ML 150 ML IV (14:52)
[2021-03-05] MEDS: LORazepam 2 MG/ML Syringe 1 MG IV (14:52)
[2021-03-05 14:53] LABS: Absolute Lymphocyte Count 3.17 X10^3/uL (0.83-4.51); Absolute Neutrophil Count 2.8 X10^3/uL (2.0-7.7); Basophil# 0.05 X10^3/uL; Basophil% 0.7 % (0-1); Eosinophil# 0.08 X10^3/uL; Eosinophils% 1.1 % (0-5); Hematocrit 44.3 % (40-54); Hemoglobin 14.9 g/dL (13.0-16.5); Lymphocyte # 3.17 X10^3/ul (0.83-4.51); Lymphocyte % 44.8 % (19-41); Mean Corp Hgb Conc 33.6 g/dL (32-36); Mean Corpuscular Hgb 32.6 pg (27.0-32.0); Mean Corpuscular Volume 96.9 fL (80-94); Mean Platelet Vol. 9.6 fl (6.2-12.0); Monocyte# 0.94 X10^3/uL; Monocyte% 13.3 % (0-10); NRBC Flagged by Analyzer 0 % (0-5); Neutrophil # 2.82 X10^3/uL (2.7-7.7); Platelet Count 317 K/mm3 (150-450); RBC Distribution Width CV 13.1 % (11.6-14.6); RBC Distribution Width SD 46.5 fl (35.1-43.9); Red Blood Count 4.57 M/mm3 (4.6-6.2); White Blood Count 7.1 K/mm3 (4.4-11.0)
[2021-03-05 15:36] LABS: Carbamazepine (Tegretol) 1.5 ug/mL (4.0-12.0)
[2021-03-05 15:39] LABS: ALB/GLOB Ratio 1.3 RATIO (0.9-2.4); AST(SGOT) 49 U/L (15-37); Alanine Aminotransfer ALT/SGPT 57 U/L (16-61); Albumin, Serum 4.2 g/dL (3.2-5.0); Alkaline Phosphatase 82 U/L (45-117); Anion Gap 15 (5-15); BUN 12 mg/dL (7-18); BUN/Creat Ratio 9.4 RATIO (10-20); Calcium,Total 9.3 mg/dL (8.5-10.1); Chloride 105 mmol/L (98-107); Creatinine, Serum 1.27 mg/dL (0.70-1.30); EST Glomerular Filtration Rate 65 mL/min (>60); Est Glom Filt Rate - Afr Amer 79 mL/min (>60); Estimated Creatinine Clearance 71.81 ml/min; Globulin 3.3 g/dL (2.2-4.2); Glucose 92 mg/dL (74-106); Potassium 3.7 mmol/L (3.5-5.1); Protein, Total 7.5 g/dL (6.4-8.2); Sodium Level 141 mmol/L (136-145)
[2021-03-05 15:49] VITALS: BP 116/74; PULSE 72; RESP 22; O2SAT 96
[2021-03-05] MEDS: carBAMazepine 200 MG Tablet PO (15:54)
[2021-03-05 15:57] VITALS: BP 116/74; PULSE 72; RESP 16; O2SAT 100
== END 2021-03-05 15:58 | disposition home or self-care (01) ==
LOC: ED 14:58
PROVIDERS: Emergency Provider Emergency Medicine; PCP Family Medicine
DX: G40.909 Epilepsy, unspecified, not intractable, without status epilepticus (principal); F17.210 Nicotine dependence, cigarettes, uncomplicated
CPT/HCPCS: 80053; 80156; 85025; 96361; 96374; 99284; J7030; A4216

== ENCOUNTER 2021-03-20 05:31 | Emergency (ER) | payer MEDICAID, SELFPAY ==
[2021-03-20 05:31] VITALS: BP 124/90; PULSE 109; RESP 18; TEMP 36.6; O2SAT 97; BMI 25.4
--- NOTE | 2021-03-20 05:33 | CT_ITS ---
STUDY: CT BRAIN WITHOUT CONTRAST REASON FOR EXAM: Male, 45 years old. seizure, headache RADIATION DOSAGE (If Supplied By Facility): CTDIvol = ( 44.99 ) mGy, DLP = ( 762.36 ) mGycm TECHNIQUE: Transaxial CT imaging of the brain was performed without administration of intravenous contrast material. Individualized dose optimization techniques were used for this CT. COMPARISON: November 04, 2020. FINDINGS: Normal soft tissue structures. Normal calvarium. Normal size ventricles and extra-axial spaces for the patient''s age. Normal white matter tracts of the cerebral hemispheres. Normal basal ganglia and thalami. Normal brainstem. Normal cerebellum. There is no intracranial hemorrhage. There are no findings of an acute ischemic infarction. Normal visualized paranasal sinuses. CT/Brain/Head without Contrast IMPRESSION: Normal unenhanced CT scan of the brain. Electronically Signed: Laurent Michelle MD at 6:29 EDT , Service support ,
--- NOTE | 2021-03-20 05:34 | EX.ED.DYSGE1 ---
HPI History of Present Illness Chief Complaint: Seizure Informant: patient Narrative Narrative: Patient presents after a seizure. He was at work when the seizure occurred. He does not remember what happened. He does have a history of epilepsy and takes Tegretol and Klonopin. He has been medication compliant. He states that his seizures are becoming a little bit more frequent. He has had no recent medication doses. He did hit his head on the ground and is complaining of some pain in the occiput. He has no nausea or vomiting. Denies any visual changes. EMS was called and transported him here. [facility] Medical History Hx of fracture of right hip Seizures Home Medications carbamazepine 200 mg PO TIDCM #90 tab 06/26/20 [Rx Last Taken 10/20/20] carbamazepine [Tegretol] 200 mg PO TID #90 tab 03/05/21 [Rx Last Taken Unknown] levetiracetam 1,000 mg PO BID 03/05/21 [History Last Taken Unknown] Allergy/AdvReac Type Severity Reaction Status Date / Time Penicillins Allergy Rash Verified 03/20/21 05:35 Sulfa (Sulfonamide Allergy Rash Verified 03/20/21 05:35 Antibiotics) Social History Smoking Status: Current every day smoker tobacco type: cigarettes ROS ROS ED Constitutional Constitutional ED: Denies chills or fever(s) Eyes Eyes: Denies blurry vision, change in vision or diplopia ENT ENT ED: Denies ear pain, rhinorrhea or sore throat Cardiovascular Cardiovascular: Denies chest pain or palpitations Respiratory/Chest Respiratory/Chest: Denies cough, dyspnea or sputum Gastrointestinal Gastrointestinal: Denies abdominal pain, diarrhea, nausea or vomiting Genitourinary Genitourinary ED: Denies dysuria, hematuria or urinary frequency Musculoskeletal Musculoskeletal: Denies back pain or neck pain Integumentary Denies change in pigmentation or rash Neurologic Neurologic: Reports headache(s) and other Details: Seizure Psychiatric Psychiatric: Denies anxiety or depression Endocrine Endocrinology: Denies polydipsia or polyuria EXAM Physical Exam Const Vital Signs: 03/20/21 05:31 Temperature 97.9 F Temperature Source Temporal Pulse Rate 109 H Respiratory Rate 18 Blood Pressure 124/90 H Blood Pressure Mean 101 Pulse Ox 97 Oxygen Delivery Method Room Air Positive well nourished and well developed General Appearance ED: well developed and NAD HEENT Reports moist mucous membranes normocephalic and atraumatic; Negative for tenderness Eyes PERRL and EOMs intact bilaterally Neck supple and no JVD Chest Wall Chest: Negative for tenderness Resp normal respiratory effort and clear to auscultation bilaterally Effort and Inspection: Negative for respiratory distress Cardio regular rate, regular rhythm and no murmurs Rate: regular rate Rhythm: regular rhythm GI soft to palpation, non-tender and non-distended Palpation: soft Back/Spine no CVA tenderness and no thoracic nor lumbar tenderness Cervical Spine: Negative for cervical spine tenderness Extremity normal to inspection and full ROM General Extremety ED: Negative for tenderness Neuro oriented x3, CN's II-XII intact bilaterally and no sensory deficits noted Sensorium / Orientation: awake and alert Motor Exam: strength 5/5 throughout Psych mental status grossly normal Skin no rashes or lesions noted Skin Narrative: There is a left elbow abrasion MDM MDM MDM Narrative Medical decision making narrative: The patient had a CAT scan of the head which was unremarkable. Tegretol level is 3.3 which is slightly low so I did give him extra dose. I will give him Tylenol for his headache. I feel he can be discharged to continue his home medication regimen but will need to follow-up with his PCP or neurologist Lab Data Labs: Laboratory Results - last 24 hr 03/20/21 05:45 Carbamazepine 3.3 L Radiography Diagnostic Testing: Radiology Impression Brain CT 03/20/21 05:33 IMPRESSION: Normal unenhanced CT scan of the brain. Electronically Signed: Laurent Michelle MD at 6:29 EDT , Service support , Discharge Plan Triage Chief Complaint: Seizure ED Provider: Aguilar Esqueda Dx/Rx/DC Orders Clinical Impression: Breakthrough seizure Prescriptions: No Action carbamazepine 200 MG tablet 200 mg PO TIDCM Qty: 90 RF: 0 levetiracetam 500 MG tablet 1,000 mg PO BID RF: 0 carbamazepine [Tegretol] 200 mg tablet 200 mg PO TID Qty: 90 RF: 0 Primary Care Provider: Sukh Mora Referrals: Sukh Mora MD [Primary Care Provider] - Disposition Disposition: Home, self care
[2021-03-20 06:18] LABS: Carbamazepine (Tegretol) 3.3 ug/mL (4.0-12.0)
[2021-03-20] MEDS: carBAMazepine 200 MG Tablet PO (06:37)
[2021-03-20] MEDS: Acetaminophen 500 MG Tablet 1000 MG PO (06:38)
[2021-03-20 06:41] VITALS: BP 118/69; PULSE 71; RESP 18; O2SAT 99
== END 2021-03-20 06:41 | disposition home or self-care (01) ==
PROVIDERS: Emergency Provider Emergency Medicine; PCP Family Medicine
DX: G40.909 Epilepsy, unspecified, not intractable, without status epilepticus (principal); S50.312A Abrasion of left elbow, initial encounter; W19.XXXA Unspecified fall, initial encounter; Y93.89 Activity, other specified; Y92.89 Other specified places as the place of occurrence of the external cause; Y99.0 Civilian activity done for income or pay; F17.210 Nicotine dependence, cigarettes, uncomplicated
CPT/HCPCS: 70450; 80156; 99285

== ENCOUNTER 2021-03-22 10:04 | Emergency (ER) | payer MEDICAID, SELFPAY ==
[2021-03-22 10:05] VITALS: BP 143/70; PULSE 87; RESP 18; TEMP 36.4; O2SAT 97; BMI 27.1
--- NOTE | 2021-03-22 10:29 | EX.ED.DYSGE1 ---
HPI History of Present Illness Chief Complaint: Seizure Informant: patient Narrative Narrative: Patient is a 45-year-old male with a past medical history of seizure disorder who presents to the emergency department for seizure. It lasted approximately 5 minutes. Was witnessed. Patient states he does have seizures regularly. The past was a couple of days ago. He has not been on his Keppra as he ran out and he has not called his doctor to get a new prescription. He states he has been compliant with his Tegretol. Patient has no complaints at time of arrival. No headache or vision change. No weakness or loss of sensation in extremity. Denies any injury from the seizure. No chest pain, shortness of breath. He states that stress typically triggers of seizures which she has been under a lot lately. Patient denies any drug or alcohol use. [facility] Medical History Hx of fracture of right hip Seizures Home Medications carbamazepine [Tegretol] 200 mg PO TID #90 tab 03/05/21 [Rx Last Taken Unknown] levetiracetam [Keppra] 1,000 mg PO BID #60 tab 03/22/21 [Rx Last Taken Unknown] Allergy/AdvReac Type Severity Reaction Status Date / Time Penicillins Allergy Rash Verified 03/22/21 10:08 Sulfa (Sulfonamide Allergy Rash Verified 03/22/21 10:08 Antibiotics) Social History Smoking Status: Current every day smoker tobacco type: cigarettes ROS ROS ED Constitutional Constitutional ED: Denies chills or fever(s) Eyes Eyes: Denies change in vision ENT ENT ED: Denies epistaxis or rhinorrhea Cardiovascular Cardiovascular: Denies chest pain or palpitations Respiratory/Chest Respiratory/Chest: Denies cough, dyspnea or dyspnea on exertion Gastrointestinal Gastrointestinal: Denies abdominal pain, diarrhea, nausea or vomiting Genitourinary Genitourinary ED: Denies dysuria, hematuria or urinary frequency Musculoskeletal Musculoskeletal: Denies back pain or neck pain Integumentary Denies rash Neurologic Neurologic: Denies dizziness, headache(s) or weakness EXAM Physical Exam Const Vital Signs: 03/22/21 10:05 03/22/21 10:43 Temperature 97.6 F L Temperature Source Temporal Pulse Rate 87 85 Respiratory Rate 18 16 Blood Pressure 143/70 H 124/72 H Blood Pressure Mean 94 Pulse Ox 97 99 Positive well nourished and well developed General Appearance ED: well developed and NAD HEENT Reports normocephalic, head/scalp atraumatic and moist mucous membranes Eyes PERRL and EOMs intact bilaterally Neck supple Resp normal respiratory effort and clear to auscultation bilaterally Auscultation: Negative for rales, rhonchi or wheezes Cardio regular rate, regular rhythm and no murmurs GI normal to inspection, nondistended, normoactive bowel sounds and non-tender Palpation: soft; Negative for guarding or rebound tenderness present Back/Spine no CVA tenderness Extremity normal to inspection General Extremety ED: Negative for edema or tenderness General Extremity: Negative for edema Neuro oriented x3, CN's II-XII intact bilaterally and no sensory deficits noted Sensorium / Orientation: alert Motor Exam: strength 5/5 throughout Psych mental status grossly normal Skin no rashes or lesions noted MDM MDM MDM Narrative Medical decision making narrative: Patient presents to the ED for recurrent seizure. He has been noncompliant with his Keppra. On arrival vital signs within normal limits. He has no complaints. No focal deficits and a benign physical exam. I do not feel any lab work or imaging is necessary as this is most likely due to him not being on his antiepileptic medication. Patient will be given an oral dose here and will be written a prescription for the next 30 days. He needs to follow-up with his PCP before this runs out for continued evaluation and management of this. Return precautions are reviewed with him. He understands and is agreeable this plan. Discharged home in stable condition. All questions are answered. Discharge Plan Triage Chief Complaint: Seizure ED Provider: Alejandro Yang Dx/Rx/DC Orders Clinical Impression: Seizure Instructions: ED Seizure, Recurrent (Adult) Prescriptions: New levetiracetam [Keppra] 1,000 mg tablet 1,000 mg PO BID Qty: 60 RF: 0 Continued carbamazepine [Tegretol] 200 mg tablet 200 mg PO TID Qty: 90 RF: 0 Discontinued levetiracetam 500 MG tablet 1,000 mg PO BID RF: 0 Primary Care Provider: Sukh Mora Referrals: Sukh Mora MD [Primary Care Provider] - 3-5 Days Disposition Disposition: Home, self care Discharge Date/Time: 03/22/21 10:47
[2021-03-22] MEDS: levETIRAcetam 1,000 MG Tablet 1000 MG PO (10:41)
[2021-03-22 10:43] VITALS: BP 124/72; PULSE 85; RESP 16; O2SAT 99
== END 2021-03-22 10:47 | disposition home or self-care (01) ==
LOC: ED 10:34
PROVIDERS: Emergency Provider Emergency Medicine; PCP Family Medicine
DX: G40.909 Epilepsy, unspecified, not intractable, without status epilepticus (principal); Z91.19 Patient's noncompliance with other medical treatment and regimen; F17.210 Nicotine dependence, cigarettes, uncomplicated
CPT/HCPCS: 99284

== ENCOUNTER 2021-04-07 01:05 | Emergency (ER) | payer MEDICAID, SELFPAY ==
[2021-04-07 01:06] VITALS: BP 123/80; PULSE 74; RESP 14; TEMP 36.9; O2SAT 93; BMI 27.7
[2021-04-07] MEDS: carBAMazepine 200 MG Tablet PO (01:47)
[2021-04-07] MEDS: levETIRAcetam IV 1,000 MG/100 ML BAG 400 MG IV (01:47)
--- NOTE | 2021-04-07 02:01 | EDS_ITS ---
HPI History of Present Illness Chief Complaint: Seizure Informant: patient Onset/Context/Timing Onset: Today Timing: Intermittent Quality: Generalized tonic-clonic seizure Location: [facility] Current Severity: Gone Maximum Severity: Severe Worsened by: Has not taken anticonvulsant medicine since Wednesday Associated Symptoms Associated Symptoms: Mild headache, which is normal for patient Narrative Narrative: Patient is a 45-year-old male with history of seizures. He states he has not taken medicine since Wednesday since he forgot them at work. He states he is on Tegretol 200 mg 3 times a day and Keppra 1000 mg twice a day. He denies blurred vision or loss of vision. Does report diplopia left eye due to subluxed lens. He denies ringing his ears decreased hearing. No trouble speech or swallowing. Denies neck pain. [place] cardiac respiratory symptoms. Denies GI symptoms. Prior similar symptoms: Yes Recent Illness/Hospitalization: No [facility] Medical History Hx of fracture of right hip Seizures Home Medications carbamazepine [Tegretol] 200 mg PO TID #90 tab 03/05/21 [Rx Last Taken Unknown] levetiracetam [Keppra] 1,000 mg PO BID #60 tab 03/22/21 [Rx Last Taken Unknown] Allergy/AdvReac Type Severity Reaction Status Date / Time Penicillins Allergy Rash Verified 04/07/21 01:10 Sulfa (Sulfonamide Allergy Rash Verified 04/07/21 01:10 Antibiotics) Social History (Updated 04/07/21 @ 02:[address] Sanford Amin MD) household members: none current occupational exposures/hazards: No history of recent travel: No Smoking Status: Current every day smoker tobacco type: cigarettes alcohol intake: current alcohol intake frequency: a few times a month substance use type: does not use ROS ROS ED Constitutional Constitutional ED: Denies chills, fever(s) or sweats Eyes Eyes: Reports diplopia; Denies blurry vision or change in vision ENT ENT ED: Reports other Details: He denies bleeding from his nose ; Denies ear pain, rhinorrhea or sore throat Cardiovascular Cardiovascular: Denies chest pain or palpitations Respiratory/Chest Respiratory/Chest: Reports cough; Denies dyspnea, dyspnea on exertion or sputum Gastrointestinal Gastrointestinal: Denies abdominal pain, nausea or vomiting Musculoskeletal Musculoskeletal: Denies arthralgias, back pain, myalgias or neck pain Integumentary Denies Abrasions or rash Neurologic Neurologic: Reports headache(s); Denies paresthesias Endocrine Endocrinology: Denies polydipsia, polyphagia or polyuria Allergic/Immunologic Allergic/Immunologic ED: Denies mouth swelling or tongue swelling EXAM Physical Exam Const Vital Signs: 04/07/21 01:06 04/07/21 03:06 Temperature 98.4 F Temperature Source Oral Pulse Rate 74 89 Respiratory Rate 14 16 Blood Pressure 123/80 H 120/76 Blood Pressure Mean 94 90 Pulse Ox 93 99 Oxygen Delivery Method Room Air Room Air Positive well nourished and well developed General Appearance ED: well developed and NAD HEENT Reports moist mucous membranes HEENT Narrative: There is no evidence of head trauma. There is no asymmetry. Nares patent. There is no epistaxis. There is no normality of the mouth. Eyes PERRL and EOMs intact bilaterally Eyes Narrative: There is no nystagmus. General Eye ED: Negative for pale conjunctiva or scleral icterus Neck no lymphadenopathy, supple and no JVD Resp normal respiratory effort and clear to auscultation bilaterally Cardio regular rate, regular rhythm and no murmurs Back/Spine no CVA tenderness Extremity normal to inspection General Extremety ED: Negative for edema General Extremity: Negative for edema Neuro oriented x3, CN's II-XII intact bilaterally and no sensory deficits noted Sensorium / Orientation: alert Motor Exam: strength 5/5 throughout Psych mental status grossly normal Skin no rashes or lesions noted and no wounds MDM MDM MDM Narrative Medical decision making narrative: Patient states has not taken his medicine since Wednesday. Suspect patient had seizure due to noncompliance. Since there are no objective findings no laboratory tests or images were obtained. Patient received 20 mg Tegretol p.o. and 1000 mg of Keppra IV. Once IV has infused if patient is still at baseline we will have him call responsible green party to take him home. Discharge Plan Triage Chief Complaint: Seizure ED Provider: Sanford Amin Dx/Rx/DC Orders Clinical Impression: Generalized tonic-clonic seizure Instructions: ED Seizure, Recurrent (Adult) Prescriptions: No Action carbamazepine [Tegretol] 200 mg tablet 200 mg PO TID Qty: 90 RF: 0 levetiracetam [Keppra] 1,000 mg tablet 1,000 mg PO BID Qty: 60 RF: 0 Primary Care Provider: Sukh Mora Referrals: Sukh Mora MD [Primary Care Provider] - 5-7 Days (Will need Tegretol and Keppra level) Activity Restrictions/Additional Instructions: You need to take your anticonvulsant medicine as directed. Disposition Disposition: Home, Self Care
[2021-04-07 03:06] VITALS: BP 120/76; PULSE 89; RESP 16; O2SAT 99
[2021-04-07 04:02] VITALS: BP 126/71; PULSE 79; RESP 18; O2SAT 97
== END 2021-04-07 04:03 | disposition home or self-care (01) ==
PROVIDERS: Emergency Provider Emergency Medicine; PCP Family Medicine
DX: G40.409 Other generalized epilepsy and epileptic syndromes, not intractable, without status epilepticus (principal); F17.210 Nicotine dependence, cigarettes, uncomplicated
CPT/HCPCS: 96365; 99285; J7050; A4216

== ENCOUNTER 2021-04-15 01:40 | Emergency (ER) | payer MEDICAID, SELFPAY ==
[2021-04-15 01:42] VITALS: BP 141/85; PULSE 96; RESP 22; TEMP 36.9; O2SAT 99; BMI 25.6
--- NOTE | 2021-04-15 01:53 | CT_ITS ---
STUDY: CT BRAIN WITHOUT CONTRAST REASON FOR EXAM: Male, 45 years old. Pain after fall RADIATION DOSAGE (If Supplied By Facility): CTDIvol = ( 44.99 ) mGy, DLP = ( 779.24 ) mGycm TECHNIQUE: Transaxial CT imaging of the brain was performed without administration of intravenous contrast material. Individualized dose optimization techniques were used for this CT. COMPARISON: No relevant priors. FINDINGS: There is no intra-/extra-axial fluid collection, mass effect, or midline shift. The martínez/white matter junction is preserved. The basal cisterns are patent. Visualized paranasal sinuses and mastoid air cells are clear. The calvarium is intact. CT/Brain/Head without Contrast IMPRESSION: No acute intracranial finding. Electronically Signed: Aleksander Fernández MD at 3:14 EDT Tel , Service support ,
--- NOTE | 2021-04-15 01:53 | CT_ITS ---
STUDY: CT CERVICAL SPINE WITHOUT CONTRAST REASON FOR EXAM: Male, 45 years old. Pain after fall RADIATION DOSAGE (If Supplied By Facility): CTDIvol = ( 21.61 ) mGy, DLP = ( 468.13 ) mGycm TECHNIQUE: High resolution transaxial imaging was performed without contrast material. Sagittal and coronal images were reconstructed. Individualized dose optimization techniques were used for this CT. COMPARISON: None FINDINGS: There is no acute fracture or subluxation the cervical spine. Multilevel cervical spondylosis is noted, most prominent at C6-C7. Prevertebral soft tissues are unremarkable. There is no apical pneumothorax. CT/Spine Cervical without Contras IMPRESSION: No acute fracture or subluxation in the cervical spine. Electronically Signed: Aleksander Fernández MD at 3:23 EDT Tel , Service support ,
[2021-04-15] MEDS: 0.9% Normal Saline 1,000 ML 1000 ML IV (02:18)
[2021-04-15] MEDS: carBAMazepine 200 MG Tablet PO (02:19)
[2021-04-15] MEDS: levETIRAcetam 1,000 MG Tablet 1000 MG PO (02:19)
[2021-04-15 02:20] LABS: Absolute Lymphocyte Count 2.76 X10^3/uL (0.83-4.51); Absolute Neutrophil Count 3.2 X10^3/uL (2.0-7.7); Basophil# 0.04 X10^3/uL; Basophil% 0.5 % (0-1); Eosinophil# 0.24 X10^3/uL; Eosinophils% 3.2 % (0-5); Hematocrit 41.7 % (40-54); Hemoglobin 13.8 g/dL (13.0-16.5); Lymphocyte # 2.76 X10^3/ul (0.83-4.51); Mean Corp Hgb Conc 33.1 g/dL (32-36); Mean Corpuscular Hgb 32.1 pg (27.0-32.0); Mean Platelet Vol. 9.5 fl (6.2-12.0); Monocyte# 1.25 X10^3/uL; Monocyte% 16.8 % (0-10); NRBC Flagged by Analyzer 0 % (0-5); Neutrophil # 3.16 X10^3/uL (2.7-7.7); Neutrophil % 42.4 % (47-70); Platelet Count 283 K/mm3 (150-450); RBC Distribution Width CV 13.4 % (11.6-14.6); RBC Distribution Width SD 48.1 fl (35.1-43.9); White Blood Count 7.5 K/mm3 (4.4-11.0)
[2021-04-15 02:33] LABS: Anion Gap 10 (5-15); BUN 17 mg/dL (7-18); Calcium,Total 9.4 mg/dL (8.5-10.1); Chloride 104 mmol/L (98-107); Creatinine, Serum 1.31 mg/dL (0.70-1.30); EST Glomerular Filtration Rate 63 mL/min (>60); Est Glom Filt Rate - Afr Amer 76 mL/min (>60); Estimated Creatinine Clearance 69.62 ml/min; Glucose 97 mg/dL (74-106); Potassium 3.8 mmol/L (3.5-5.1); Sodium Level 139 mmol/L (136-145)
[2021-04-15] MEDS: LORazepam 2 MG/ML Syringe 1 MG IV (02:44)
--- NOTE | 2021-04-15 02:47 | EX.ED.DYSGE1 ---
HPI History of Present Illness Chief Complaint: Seizure Narrative Narrative: Patient presenting for evaluation secondary to a seizure with associated injury. Patient has a underlying history of seizure disorder, he is on Tegretol 200 mg 3 times a day as well as Keppra 1000 mg twice a day. Patient tells me that he did not have his evening dose. Patient apparently had a breakthrough seizure. His significant other stated that he suffered a fall down a couple of stairs associated with this. Does have a slight head injury. Patient was postictal upon arrival. Patient denies any other recent illnesses such as fever cough nausea vomiting or diarrhea. States that his last seizure was around a week ago, he states that that really is not atypical for him. Review of systems otherwise negative. [facility] Medical History Hx of fracture of right hip Seizures Home Medications carbamazepine [Tegretol] 200 mg PO TID #90 tab 03/05/21 [Rx Last Taken Unknown] levetiracetam [Keppra] 1,000 mg PO BID #60 tab 03/22/21 [Rx Last Taken Unknown] Allergy/AdvReac Type Severity Reaction Status Date / Time Penicillins Allergy Rash Verified 04/15/21 01:41 Sulfa (Sulfonamide Allergy Rash Verified 04/15/21 01:41 Antibiotics) Social History household members: none current occupational exposures/hazards: No history of recent travel: No Smoking Status: Current every day smoker tobacco type: cigarettes alcohol intake: current alcohol intake frequency: a few times a month substance use type: does not use ROS ROS ED Constitutional Constitutional ED: Denies chills or fever(s) ENT ENT ED: Denies rhinorrhea Cardiovascular Cardiovascular: Denies chest pain Respiratory/Chest Respiratory/Chest: Denies cough or dyspnea Gastrointestinal Gastrointestinal: Denies abdominal pain, diarrhea, nausea or vomiting Genitourinary Genitourinary ED: Denies dysuria or hematuria Musculoskeletal Musculoskeletal: Denies back pain Integumentary Denies rash Neurologic Neurologic: Reports other Details: Positive for seizure ; Denies paresthesias or weakness Psychiatric Psychiatric: Denies depression Endocrine Endocrinology: Denies fatigue Allergic/Immunologic Allergic/Immunologic ED: Denies urticaria EXAM Physical Exam Const Vital Signs: 04/15/21 01:42 04/15/21 03:02 04/15/21 05:03 Temperature 98.5 F Temperature Source Temporal Pulse Rate 96 100 91 Respiratory Rate 22 H 25 H 16 Blood Pressure 141/85 H 134/69 H 115/65 Blood Pressure Mean 103 90 81 Pulse Ox 99 97 99 Oxygen Delivery Method Room Air Room Air Room Air Positive well nourished and well developed Constitutional Narrative: Thin male who appears somewhat older than stated age, moderately postictal but responsive to questions and commands upon arrival. General Appearance ED: well developed HEENT Reports moist mucous membranes HEENT Narrative: Evidence of abrasion and some scalp hematoma over the patient's left parietal scalp, no evidence of depressed skull fracture. No evidence of tongue biting or tongue laceration trauma; Negative for tenderness Eyes EOMs intact bilaterally Neck no lymphadenopathy, supple and no JVD Neck Narrative: Patient complains of diffuse nonlocalizing neck tenderness without any evidence of step-offs or deformity Chest Wall inspection of chest normal Resp clear to auscultation bilaterally Resp Narrative: Patient is tachypneic with no significant increase in respiratory effort Cardio regular rate, regular rhythm, no murmurs and peripheral pulses 2+ throughout GI normal to inspection, nondistended, normoactive bowel sounds, non-tender and no masses Palpation: soft Back/Spine normal to inspection Extremity normal to inspection General Extremety ED: Negative for tenderness Neuro oriented x3 and no sensory deficits noted Neuro Narrative: Patient is oriented, but is slightly postictal upon arrival Sensorium / Orientation: alert Motor Exam: strength 5/5 throughout Psych mental status grossly normal Skin no rashes or lesions noted Skin Narrative: Skin was diaphoretic MDM MDM MDM Narrative Medical decision making narrative: Patient presented secondary to a seizure likely secondary to medication noncompliance. I ordered the patient his oral dose of Tegretol and Keppra to be given upon arrival. Seizure precautions were initiated. IV was established patient was given fluids laboratory studies were obtained. CBC demonstrates no significant leukocytosis, chemistry shows no significant anion gap or shift. At CT imaging of the brain and cervical spine were performed. Patient unfortunately suffered an additional seizure episode that was tonic-clonic and lasted under a minute at around 0250. He was administered a milligram of Ativan, and [address] imaging of the patient's brain and cervical spine per radiology are found to be negative. Multiple repeat evaluations were performed on the patient, at 0330 the patient was arousable to voice would open his eyes, but is still postictal. Patient will continue to be observed, does not seem that the patient is having subclinical seizures at this time. Repeat evaluation of the patient at 0352 patient responds to verbal stimuli, and moves purposefully I definitely do not feel that the patient is having subclinical seizures at this time, and he likely is still postictal. I will continue to observe the patient. Repeat evaluation of the patient at 0655 he is back to his mental baseline. There is no evidence of status epilepticus. I believe that the patient at this point had repeat seizures secondary to medication noncompliance. Questioned him whether or not he has his medications, he states that he does. I stressed the importance of compliance with these medicines, and the patient was discharged in improved condition. Lab Data Labs: Laboratory Results - last 24 hr 04/15/21 04/15/21 02:07 02:07 WBC 7.5 RBC 4.30 L Hgb 13.8 Hct 41.7 MCV 97.0 H MCH 32.1 H MCHC 33.1 RDW Std Deviation 48.1 H RDW Coeff of Sunshine 13.4 Plt Count 283 MPV 9.5 Immature Gran % (Auto) 0.100 Neut % (Auto) 42.4 L Lymph % (Auto) 37.0 Rowan % (Auto) 16.8 H Eos % (Auto) 3.2 Baso % (Auto) 0.5 Absolute Neuts (auto) 3.2 Absolute Lymphs (auto) 2.76 Nucleated RBC % 0 Sodium 139 Potassium 3.8 Chloride 104 Carbon Dioxide 25.0 Anion Gap 10 BUN 17 Creatinine 1.31 H Estim Creat Clear Calc 69.62 Est GFR (MDRD) Af Amer 76 Est GFR (MDRD) Non-Af 63 BUN/Creatinine Ratio 13.0 Glucose 97 Calcium 9.4 Radiography Diagnostic Testing: Radiology Impression Brain CT 04/15/21 01:53 IMPRESSION: No acute intracranial finding. Electronically Signed: Aleksander Fernández MD at 3:14 EDT Tel , Service support , Cervical Spine CT 04/15/21 01:53 IMPRESSION: No acute fracture or subluxation in the cervical spine. Electronically Signed: Aleksander Fernández MD at 3:23 EDT Tel , Service support , Critical Care Time Critical care time (excluding procedures): 30-74 minutes Discharge Plan Triage Chief Complaint: Seizure ED Provider: Piero Davis Dx/Rx/DC Orders Clinical Impression: Seizure disorder, Breakthrough seizure Instructions: ED Seizure, Recurrent (Adult) Prescriptions: No Action carbamazepine [Tegretol] 200 mg tablet 200 mg PO TID Qty: 90 RF: 0 levetiracetam [Keppra] 1,000 mg tablet 1,000 mg PO BID Qty: 60 RF: 0 Primary Care Provider: Sukh Mora Referrals: Sukh Mora MD [Primary Care Provider] - 3-5 Days Disposition Disposition: Home, Self Care
[2021-04-15] MEDS: levETIRAcetam IV 1,000 MG/100 ML BAG 400 MG IV (03:00)
[2021-04-15 03:02] VITALS: BP 134/69; PULSE 100; RESP 25; O2SAT 97
[2021-04-15 05:03] VITALS: BP 115/65; PULSE 91; RESP 16; O2SAT 99
[2021-04-15 06:57] VITALS: BP 127/83; PULSE 94; RESP 16; O2SAT 99
== END 2021-04-15 07:01 | disposition home or self-care (01) ==
PROVIDERS: Emergency Provider Emergency Medicine; PCP Family Medicine
DX: G40.909 Epilepsy, unspecified, not intractable, without status epilepticus (principal); Z91.14 Patient's other noncompliance with medication regimen; F17.210 Nicotine dependence, cigarettes, uncomplicated
CPT/HCPCS: 36415; 70450; 72125; 80048; 85025; 96361; 96365; 96375; 99285; J7030; A4216

== ENCOUNTER 2021-05-08 22:21 | Emergency (ER) | payer MEDICAID, SELFPAY ==
[2021-05-08 22:22] VITALS: BP 139/85; PULSE 106; RESP 18; TEMP 37.5; O2SAT 97; BMI 24.8
[2021-05-08] MEDS: carBAMazepine 200 MG Tablet PO (23:06)
[2021-05-08] MEDS: levETIRAcetam IV 1,000 MG/100 ML BAG 400 MG IV (23:06)
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
[2021-05-08] MEDS: Acetaminophen 325 MG Tablet 650 MG PO (23:14)
[2021-05-09] VITALS: BP 116/77; PULSE 82; RESP 22; O2SAT 95
== END 2021-05-09 00:02 | disposition home or self-care (01) ==
LOC: ED 23:28
PROVIDERS: Emergency Provider Emergency Medicine; PCP Family Medicine
DX: G40.909 Epilepsy, unspecified, not intractable, without status epilepticus (principal); F17.210 Nicotine dependence, cigarettes, uncomplicated; Z59.0 Homelessness; Z79.899 Other long term (current) drug therapy
CPT/HCPCS: 96365; 99285; J7050; A4216

== ENCOUNTER 2021-05-12 00:20 | Emergency (ER) | payer MEDICAID, SELFPAY ==
[2021-05-12 00:21] VITALS: BP 138/84; PULSE 95; RESP 22; TEMP 36.6; O2SAT 99; BMI 28.1
[2021-05-12 01:35] VITALS: BP 133/89; PULSE 73; RESP 19; O2SAT 97
[2021-05-12 01:54] LABS: Absolute Lymphocyte Count 3.15 X10^3/uL (0.83-4.51); Absolute Neutrophil Count 5.6 X10^3/uL (2.0-7.7); Basophil# 0.05 X10^3/uL; Basophil% 0.5 % (0-1); Eosinophil# 0.22 X10^3/uL; Eosinophils% 2.1 % (0-5); Hematocrit 40.3 % (40-54); Hemoglobin 13.2 g/dL (13.0-16.5); Lymphocyte # 3.15 X10^3/ul (0.83-4.51); Lymphocyte % 30.7 % (19-41); Mean Corp Hgb Conc 32.8 g/dL (32-36); Mean Corpuscular Hgb 32.4 pg (27.0-32.0); Mean Corpuscular Volume 98.8 fL (80-94); Mean Platelet Vol. 9.9 fl (6.2-12.0); Monocyte# 1.22 X10^3/uL; Monocyte% 11.9 % (0-10); NRBC Flagged by Analyzer 0 % (0-5); Neutrophil # 5.58 X10^3/uL (2.7-7.7); Neutrophil % 54.5 % (47-70); Platelet Count 383 K/mm3 (150-450); RBC Distribution Width CV 12.9 % (11.6-14.6); RBC Distribution Width SD 46.9 fl (35.1-43.9); Red Blood Count 4.08 M/mm3 (4.6-6.2); White Blood Count 10.3 K/mm3 (4.4-11.0)
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
[2021-05-12 02:12] LABS: ALB/GLOB Ratio 0.9 RATIO (0.9-2.4); AST(SGOT) 40 U/L (15-37); Alanine Aminotransfer ALT/SGPT 38 U/L (16-61); Albumin, Serum 3.5 g/dL (3.2-5.0); Alkaline Phosphatase 87 U/L (45-117); Anion Gap 6 (5-15); BUN 13 mg/dL (7-18); BUN/Creat Ratio 14.6 RATIO (10-20); Calcium,Total 8.9 mg/dL (8.5-10.1); Chloride 103 mmol/L (98-107); Creatinine, Serum 0.89 mg/dL (0.70-1.30); EST Glomerular Filtration Rate 98 mL/min (>60); Est Glom Filt Rate - Afr Amer 119 mL/min (>60); Estimated Creatinine Clearance 92.13 ml/min; Globulin 3.8 g/dL (2.2-4.2); Glucose 104 mg/dL (74-106); Potassium 4.1 mmol/L (3.5-5.1); Protein, Total 7.3 g/dL (6.4-8.2); Sodium Level 136 mmol/L (136-145)
[2021-05-12 02:22] LABS: Carbamazepine (Tegretol) 0.7 ug/mL (4.0-12.0)
[2021-05-12] MEDS: carBAMazepine 200 MG Tablet PO (02:42)
[2021-05-12 05:00] VITALS: BP 122/74; PULSE 84; RESP 21; O2SAT 95
--- NOTE | 2021-05-12 05:28 | ED.RN ---
pt informed that since his rx was filled 04/30 his insurance would not cover the cost of the rx's ordered tonight. he was informed the rivera cardoza of the rx's would be $223.94 if he wanted to get them filled tonight. pt stated then they can keep that shit. pt advised that his medication needs to be restarted immediately to prevent additional seizures. pt remains unwilling to purchase medications at this time. .
== END 2021-05-12 05:33 | disposition home or self-care (01) ==
PROVIDERS: Emergency Provider Emergency Medicine; PCP Family Medicine
DX: G40.909 Epilepsy, unspecified, not intractable, without status epilepticus (principal); F17.210 Nicotine dependence, cigarettes, uncomplicated; Z79.899 Other long term (current) drug therapy
CPT/HCPCS: 80053; 80156; 85025; 99285; A4216

== ENCOUNTER 2021-05-29 02:44 | Emergency (ER) | payer MEDICAID, SELFPAY ==
[2021-05-29 02:45] VITALS: BP 125/80; PULSE 91; RESP 19; TEMP 36.7; O2SAT 98
[2021-05-29 02:48] VITALS: BP 125/80; PULSE 77; RESP 20; TEMP 36.7; O2SAT 98; BMI 26.6
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
[2021-05-29] MEDS: levETIRAcetam 1,000 MG Tablet 1000 MG PO (04:17)
[2021-05-29] MEDS: carBAMazepine 200 MG Tablet PO (04:18)
[2021-05-29 04:21] VITALS: BP 138/88; PULSE 82; RESP 18; O2SAT 99
== END 2021-05-29 04:27 | disposition home or self-care (01) ==
LOC: ED 03:15
PROVIDERS: Emergency Provider Student in an Organized Health Care Education/Training Program; PCP Family Medicine
DX: G40.909 Epilepsy, unspecified, not intractable, without status epilepticus (principal); F17.210 Nicotine dependence, cigarettes, uncomplicated; Z79.899 Other long term (current) drug therapy
CPT/HCPCS: 99285

== ENCOUNTER 2021-06-21 20:09 | Emergency (ER) | payer MEDICAID, SELFPAY ==
[2021-06-21 20:09] VITALS: BP 137/88; PULSE 120; RESP 20; TEMP 37.6; O2SAT 99; BMI 25.8
--- NOTE | 2021-06-21 20:11 | ED.RN ---
TO GO TO [facility] AFTER BEING DISCHARGED. CALL SHREYAS LOOMIS AT
[2021-06-21 21:22] VITALS: BP 140/82; PULSE 95; RESP 16; O2SAT 97
--- NOTE | 2021-06-21 21:31 | EX.ED.DYSGE1 ---
HPI History of Present Illness Chief Complaint: Seizure Informant: patient Onset/Context/Timing Onset: Today Context: Sudden Onset Timing: Intermittent (x1) and Lasts (5 min) Quality: tonic-clonic sz all over Current Severity: Gone Maximum Severity: Severe Worsened by: n/a Relieved by: nothing, spont stopped Associated Symptoms Associated Symptoms: headache Narrative Narrative: Patient has history of seizure disorder and had a breakthrough seizure today while riding as a passenger in a vehicle. He is currently staying at an outpatient rehab facility for methamphetamine, and they were driving him back home to the rehab place. He was last here in May, he received refill medications for his carbamazepine and Keppra which he had been out of, and since he has been on those he has had no seizures except he ran out of the carbamazepine 3 days ago. He states he feels fine now except for a headache, this has been common for him when he has his breakthrough seizures. He denies any recent illness or injury, except he states for the last several days he has had a runny nose and more of a cough than usual for his chronic smoking habit. He denies any contact with anyone with Covid that he knows of. He has not been vaccinated yet. [facility] Medical History Hepatitis Hx of fracture of right hip Kidney disease Seizures Smoker Substance abuse Home Medications carbamazepine [Tegretol] 200 mg PO TID #30 tab 05/12/21 [Rx Last Taken Unknown] levetiracetam [Keppra] 1,000 mg PO BID #20 tab 05/12/21 [Rx Last Taken Unknown] carbamazepine [Epitol] 200 mg PO TID 30 Days #90 tab 06/21/21 [Rx Last Taken Unknown] levetiracetam [Keppra] 1,000 mg PO BID 30 Days #60 tab 06/21/21 [Rx Last Taken Unknown] Allergy/AdvReac Type Severity Reaction Status Date / Time Penicillins Allergy Rash Verified 05/12/21 00:21 Sulfa (Sulfonamide Allergy Rash Verified 05/12/21 00:21 Antibiotics) Social History household members: none current occupational exposures/hazards: No history of recent travel: No Smoking Status: Current every day smoker tobacco type: cigarettes alcohol intake: current alcohol intake frequency: a few times a month substance use type: does not use ROS ROS ED Constitutional Constitutional ED: Denies chills or fever(s) Eyes Eyes: Denies change in vision or diplopia ENT ENT ED: Reports nasal congestion and rhinorrhea; Denies sore throat Cardiovascular Cardiovascular: Denies chest pain or palpitations Respiratory/Chest Respiratory/Chest: Reports cough; Denies dyspnea Gastrointestinal Gastrointestinal: Denies abdominal pain, diarrhea, nausea or vomiting Genitourinary Genitourinary ED: Denies dysuria or hematuria Musculoskeletal Musculoskeletal: Denies back pain or neck pain Integumentary Denies abscess or rash Neurologic Neurologic: Reports headache(s); Denies paresthesias or weakness Psychiatric Psychiatric: Denies anxiety or suicidal thoughts EXAM Physical Exam Const Vital Signs: 06/21/21 20:09 06/21/21 21:22 06/21/21 21:59 Temperature 99.7 F H Temperature Source Temporal Pulse Rate 120 H 95 84 Respiratory Rate 20 H 16 16 Blood Pressure 137/88 H 140/82 H 119/78 Blood Pressure Mean 104 101 Pulse Ox 99 97 99 Oxygen Delivery Method Room Air Room Air Positive well nourished and well developed General Appearance ED: well developed and NAD HEENT Reports moist mucous membranes normocephalic and atraumatic Eyes PERRL and EOMs intact bilaterally Neck full ROM and supple Resp normal respiratory effort and clear to auscultation bilaterally Cardio regular rate, regular rhythm and no murmurs GI non-tender and non-distended Auscultation: normoactive bowel sounds Palpation: soft Back/Spine no CVA tenderness General Back: other FROM Extremity normal to inspection General Extremety ED: Negative for edema, pulses abnormal or tenderness General Extremity: Negative for edema or pulses abnormal Neuro oriented x3, CN's II-XII intact bilaterally and no sensory deficits noted Sensorium / Orientation: awake and alert Motor Exam: strength 5/5 throughout Skin no rashes or lesions noted and no wounds MDM MDM MDM Narrative Medical decision making narrative: Covid PCR was sent as an outpatient, but the time of this documentation the patient was discharged home and it returned negative. He was monitored for a short while, given Tylenol for his headache, his nighttime doses of carbamazepine and Keppra which she had not had yet, as well as refill prescriptions, he is scheduling to follow-up with his doctor after he gets his medical card. Lab Data Attestation: I reviewed the patient's lab results. Labs: Laboratory Results - last 24 hr 06/21/21 06/21/21 22:00 22:00 COVID-19 ([facility]YA) Cancelled Negative Discharge Plan Triage Chief Complaint: Seizure ED Provider: Ronn Philippe Dx/Rx/DC Orders Clinical Impression: Breakthrough seizure, Rhinorrhea Instructions: ED Seizure, Recurrent (Adult) Prescriptions: Continued carbamazepine [Epitol] 200 mg tablet 200 mg PO TID 30 Days Qty: 90 RF: 0 levetiracetam [Keppra] 1,000 mg tablet 1,000 mg PO BID 30 Days Qty: 60 RF: 0 No Action carbamazepine [Tegretol] 200 mg tablet 200 mg PO TID Qty: 30 RF: 0 levetiracetam [Keppra] 1,000 mg tablet 1,000 mg PO BID Qty: 20 RF: 0 Primary Care Provider: Sukh Mora Referrals: Sukh Mora MD [Primary Care Provider] - (call for appt) Disposition Disposition: Home, Self Care Discharge Date/Time: 06/21/21 22:05
[2021-06-21] MEDS: Acetaminophen 325 MG Tablet 650 MG PO (21:51)
[2021-06-21] MEDS: levETIRAcetam 1,000 MG Tablet 1000 MG PO (21:51)
[2021-06-21] MEDS: carBAMazepine 200 MG Tablet PO (21:52)
[2021-06-21 21:59] VITALS: BP 119/78; PULSE 84; RESP 16; O2SAT 99
--- NOTE | 2021-06-21 22:00 | ED.RN ---
THIS NURSE REVIEWED D/C INSTRUCTIONS WITH PT. PT VERBALIZED UNDERSTANDING OF INSTRUCTIONS. IV D/C. IV CATHETER INTACT. PT TOLERATED WELL. PT DENIES FURTHER NEEDS OR QUESTIONS AT THIS TIME
[2021-06-21 23:16] LABS: Probe Check PASS; Specimen Processing Control PASS
== END 2021-06-21 22:05 | disposition home or self-care (01) ==
LOC: ED 21:43
PROVIDERS: Emergency Provider Emergency Medicine; PCP Family Medicine
DX: G40.909 Epilepsy, unspecified, not intractable, without status epilepticus (principal); F17.210 Nicotine dependence, cigarettes, uncomplicated; Z79.899 Other long term (current) drug therapy; J34.89 Other specified disorders of nose and nasal sinuses
CPT/HCPCS: 87635; 99284; U0005; U0003

== ENCOUNTER 2021-08-11 17:54 | Emergency (ER) | payer MEDICAID, SELFPAY ==
[2021-08-11 17:55] VITALS: RESP 16; TEMP 36.8; BMI 27.8
[2021-08-11 17:59] VITALS: BP 152/76; PULSE 87; RESP 15; O2SAT 98
--- NOTE | 2021-08-11 18:22 | EDS_ITS ---
HPI History of Present Illness Chief Complaint: Seizure Informant: EMS Onset/Context/Timing Onset: Hours Context: Sudden Onset Timing: Intermittent Current Severity: Postictal Maximum Severity: Unknown Worsened by: Did not take his anticonvulsant medicines today Relieved by: Not applicable Associated Symptoms Associated Symptoms: Mild frontal headache Narrative Narrative: Patient is a 45-year-old male with known history of seizures who states he did not take his anticonvulsant meds today. He is on Tegretol and Keppra. Reports mild frontal headache. Denies double vision, blurred vision loss of vision management ears decreased hearing. Denies rhinorrhea, epistaxis or postnasal drainage. No sore throat. Denies neck pain. Denies cardiac respiratory symptoms. Denies nausea, vomiting or diarrhea. No urologic symptoms. He denies anesthesia, paresthesia or motor weakness. Prior similar symptoms: Yes Recent Illness/Hospitalization: No PFSH PFSH Medical History Hepatitis Hx of fracture of right hip Kidney disease Seizures Smoker Substance abuse Home Medications carbamazepine [Epitol] 200 mg PO TID 30 Days #90 tab 06/21/21 [Rx Last Taken Unknown] levetiracetam [Keppra] 1,000 mg PO BID 30 Days #60 tab 06/21/21 [Rx Last Taken Unknown] Allergy/AdvReac Type Severity Reaction Status Date / Time Penicillins Allergy Rash Verified 08/11/21 17:55 Sulfa (Sulfonamide Allergy Rash Verified 08/11/21 17:55 Antibiotics) Social History household members: none current occupational exposures/hazards: No history of recent travel: No Smoking Status: Current every day smoker tobacco type: cigarettes alcohol intake: current alcohol intake frequency: a few times a month substance use type: does not use ROS ROS ED Constitutional Constitutional ED: Denies chills, fever(s), subjective or sweats Eyes Eyes: Denies blurry vision, change in vision or diplopia ENT ENT ED: Denies ear pain, rhinorrhea or sore throat Cardiovascular Cardiovascular: Denies chest pain, palpitations or racing heartbeat Respiratory/Chest Respiratory/Chest: Denies cough, dyspnea, dyspnea on exertion or sputum Gastrointestinal Gastrointestinal: Denies abdominal pain, diarrhea, nausea or vomiting Musculoskeletal Musculoskeletal: Denies arthralgias, back pain, myalgias or neck pain Integumentary Denies rash Neurologic Neurologic: Reports headache(s); Denies paresthesias or weakness Endocrine Endocrinology: Denies polydipsia, polyphagia or polyuria Allergic/Immunologic Allergic/Immunologic ED: Denies urticaria EXAM Physical Exam Const Vital Signs: 08/11/21 17:55 08/11/21 17:59 08/11/21 19:33 Temperature 98.3 F Temperature Source Temporal Pulse Rate 87 77 Respiratory Rate 16 15 Blood Pressure 152/76 H 127/78 H Blood Pressure Mean 101 94 Pulse Ox 98 Oxygen Delivery Method Room Air Room Air Positive well nourished and well developed General Appearance ED: well developed and NAD; Negative for cyanotic, alicia phoretic or pallor HEENT HEENT Narrative: Head is atraumatic normocephalic. Ears normal. Nares patent. Posterior pharynx not erythema or exudate. Eyes PERRL and EOMs intact bilaterally Eyes Narrative: There is no nystagmus. General Eye ED: Negative for pale conjunctiva or scleral icterus Neck no lymphadenopathy, supple and no JVD Chest Wall inspection of chest normal and palpation of chest normal Resp normal respiratory effort and clear to auscultation bilaterally Back/Spine no CVA tenderness Cervical Spine: Negative for cervical spine tenderness Thoracic Spine / Upper Back: Negative for thoracic spinal tenderness or paraspinal muscle tenderness Lumbar Spine / Lower Back: Negative for lumbar spinal tenderness Extremity normal to inspection General Extremety ED: Negative for edema or tenderness General Extremity: Negative for edema Neuro No oriented x3, CN's II-XII intact bilaterally and no sensory deficits noted Sensorium / Orientation: alert Motor Exam: strength 5/5 throughout Psych mental status grossly normal Skin no rashes or lesions noted, no wounds and skin turgor normal General Skin Exam: Negative for jaundice or pallor MDM MDM MDM Narrative Medical decision making narrative: Patient with generalized tonic-clonic seizure. He is disoriented to time. Will administer anticonvulsants and observe. Patient was reassessed at 1940. He is alert oriented. He received his anticonvulsant meds. He is discharged to home. Discharge Plan Triage Chief Complaint: Seizure ED Provider: Sanford Amin Dx/Rx/DC Orders Clinical Impression: Seizure disorder Instructions: ED Seizure, Recurrent (Adult) Prescriptions: No Action carbamazepine [Epitol] 200 mg tablet 200 mg PO TID 30 Days Qty: 90 RF: 0 levetiracetam [Keppra] 1,000 mg tablet 1,000 mg PO BID 30 Days Qty: 60 RF: 0 Primary Care Provider: Sukh Mora Referrals: Sukh Mora MD [Primary Care Provider] - 5-7 Days Activity Restrictions/Additional Instructions: You should contact your doctor to have blood levels of your anticonvulsants in 5 to 7 days. You need to take your medicine daily and not miss any doses. Disposition Disposition: Home, Self Care
[2021-08-11] MEDS: carBAMazepine 200 MG Tablet PO (18:45)
[2021-08-11] MEDS: levETIRAcetam IV 1,000 MG/100 ML BAG 400 MG IV (18:45)
[2021-08-11 19:33] VITALS: BP 127/78; PULSE 77
== END 2021-08-11 19:57 | disposition home or self-care (01) ==
PROVIDERS: Emergency Provider Emergency Medicine; PCP Family Medicine
DX: G40.909 Epilepsy, unspecified, not intractable, without status epilepticus (principal); F17.210 Nicotine dependence, cigarettes, uncomplicated
CPT/HCPCS: 99285; A4216

== ENCOUNTER 2021-10-18 13:01 | Emergency (ER) | payer MEDICAID, SELFPAY ==
[2021-10-18 13:03] VITALS: BP 189/74; PULSE 99; RESP 16; TEMP 36.8; O2SAT 100; BMI 27.5
--- NOTE | 2021-10-18 13:40 | EDS_ITS ---
HPI History of Present Illness Chief Complaint: Seizure Informant: patient Onset/Context/Timing Onset: Today Current Severity: Gone Maximum Severity: Mild Narrative Narrative: 46-year-old male history of seizure disorder. States he takes Keppra 1000 mg twice a day and Tegretol 200 mg 3 times a day. States he has been taking his medications as prescribed. Was told he had 2 seizures today. Denies any injuries. Denies any recent illness. Says he has not been having a lot of seizures recently. Denies any nausea, vomiting or diarrhea. No headache or fevers. Prior similar symptoms: Yes Recent Illness/Hospitalization: No PFSH PFSH Medical History Hepatitis Hx of fracture of right hip Kidney disease Seizures Smoker Substance abuse Home Medications carbamazepine [Epitol] 200 mg PO TID 30 Days #90 tab 06/21/21 [Rx Last Taken Unknown] levetiracetam [Keppra] 1,000 mg PO BID 30 Days #60 tab 06/21/21 [Rx Last Taken Unknown] Allergy/AdvReac Type Severity Reaction Status Date / Time Penicillins Allergy Rash Verified 10/18/21 13:06 Sulfa (Sulfonamide Allergy Rash Verified 10/18/21 13:06 Antibiotics) Social History household members: none current occupational exposures/hazards: No history of recent travel: No Smoking Status: Current every day smoker tobacco type: cigarettes alcohol intake: current alcohol intake frequency: a few times a month substance use type: does not use ROS ROS ED ROS Narrative Denies recent illness. Review of Systems ROS Unobtainable: Denies due to encephalopathy Constitutional Constitutional ED: Denies chills or fever(s) Eyes Eyes: Denies change in vision ENT ENT ED: Denies ear pain or rhinorrhea Cardiovascular Cardiovascular: Denies chest pain or palpitations Respiratory/Chest Respiratory/Chest: Denies cough or dyspnea Gastrointestinal Gastrointestinal: Denies abdominal pain, diarrhea, nausea or vomiting Genitourinary Genitourinary ED: Denies dysuria Musculoskeletal Musculoskeletal: Denies myalgias Integumentary Denies rash Neurologic Neurologic: Denies headache(s) Psychiatric Psychiatric: Denies depression Endocrine Endocrinology: Denies polyuria Allergic/Immunologic Allergic/Immunologic ED: Denies urticaria EXAM Physical Exam Narrative Exam Narrative: Nourished male no acute distress vital signs stable afebrile. Lying in bed awake alert. Not actively seizing. Nurses have already placed seizure precautions. H EENT exam unremarkable. No dentition. No head and face trauma. Neck nontender. Lungs clear to auscultation. Heart regular rhythm no murmur. Abdomen soft nontender. Moving all 4 extremities. 5-5 senior benefits analyst strength. Dorsi plantarflexion intact. No deformities. Nontender. Back nontender. Neurologically is awake and alert. He is answering questions and following commands. He has no focal motor deficits. Const Vital Signs: 10/18/21 13:03 10/18/21 15:09 Temperature 98.3 F Temperature Source Oral Pulse Rate 99 61 Respiratory Rate 16 20 H Blood Pressure 189/74 H Blood Pressure Mean 112 Pulse Ox 100 98 Oxygen Delivery Method Room Air Positive well nourished and well developed; Negative for obese, cachectic, contractures or unkempt General Appearance ED: well developed and NAD; Negative for unkempt, cachectic, contractures, cyanotic, diaphoretic or pallor Nutritional Appearance: Negative for cachectic or obese HEENT Reports moist mucous membranes Negative for trauma or tenderness Eyes PERRL and EOMs intact bilaterally Neck no lymphadenopathy, supple and no JVD General: Negative for tenderness Chest Wall inspection of chest normal and palpation of chest normal Resp normal respiratory effort and clear to auscultation bilaterally Auscultation: Negative for rales, rhonchi or wheezes Cardio regular rate, regular rhythm, S1 normal heart sound, S2 normal heart sound and no murmurs GI normal to inspection, nondistended, normoactive bowel sounds, non-tender, non- distended and no masses Inspection: Negative for abdominal distention Auscultation: normoactive bowel sounds Palpation: soft; Negative for tender, guarding or rebound tenderness present Back/Spine no CVA tenderness General Back: Negative for CVA tenderness Cervical Spine: Negative for cervical spine tenderness Thoracic Spine / Upper Back: Negative for thoracic spinal tenderness or paraspinal muscle tenderness Lumbar Spine / Lower Back: Negative for lumbar spinal tenderness Extremity normal to inspection General Extremety ED: Negative for edema or tenderness General Extremity: Negative for edema Neuro oriented x3, CN's II-XII intact bilaterally and no sensory deficits noted Sensorium / Orientation: alert; Negative for orientation impaired, lethargic or stuporous Motor Exam: strength 5/5 throughout; Negative for general weakness Psych mental status grossly normal Appearance: Negative for unkempt Attitude: No agitated Mood & Affect: Negative for depressed or tearful Skin no rashes or lesions noted and no wounds General Skin Exam: Negative for jaundice or pallor MDM MDM MDM Narrative Medical decision making narrative: 46-year-old male history of seizures reportedly taking his Tegretol and Keppra as prescribed. He will be given a dose of each we will get a Tegretol level a Keppra level is a send out unlocked and obtain that. Also check a CBC and a chemistry. But most likely he will be able to be discharged back to the homeless care home. Repeat exam patient is doing well at 3:45 PM. He has had no further seizures here. He was given a dose of each of his seizure medications both the Keppra and Tegretol. He will be discharged back to the homeless care home. Outpatient follow-up with his doctors. Lab Data Attestation: I reviewed the patient's lab results. Lab results narrative: CBC White count of 7. Hemoglobin 14. Platelets 386 unremarkable. Electrolytes normal gap of 6 normal BUN and creatinine. Glucose 120. His carbamazepine level is low at 1.3. Labs: Laboratory Results - last 24 hr 10/18/21 10/18/21 10/18/21 13:45 13:45 13:45 WBC 7.8 RBC 4.51 L Hgb 14.1 Hct 42.4 MCV 94.0 MCH 31.3 MCHC 33.3 RDW Std Deviation 49.1 H RDW Coeff of Sunshine 14.2 Plt Count 386 MPV 9.2 Immature Gran % (Auto) 0.300 Neut % (Auto) 64.7 Lymph % (Auto) 22.5 Centre % (Auto) 10.9 H Eos % (Auto) 1.2 Baso % (Auto) 0.4 Absolute Neuts (auto) 5.0 Absolute Lymphs (auto) 1.75 Nucleated RBC % 0 Sodium 139 Potassium 4.0 Chloride 107 Carbon Dioxide 26.0 Anion Gap 6 BUN 14 Creatinine 1.03 Estim Creat Clear Calc 87.62 Est GFR (MDRD) Af Amer 100 Est GFR (MDRD) Non-Af 83 BUN/Creatinine Ratio 13.6 Glucose 120 H Calcium 8.9 Carbamazepine 1.3 L Discharge Plan Triage Chief Complaint: Seizure ED Provider: Nasim Lowry Dx/Rx/DC Orders Clinical Impression: Seizure disorder, Seizure Instructions: ED Seizure, Recurrent (Adult) Prescriptions: No Action carbamazepine [Epitol] 200 mg tablet 200 mg PO TID 30 Days Qty: 90 RF: 0 levetiracetam [Keppra] 1,000 mg tablet 1,000 mg PO BID 30 Days Qty: 60 RF: 0 Primary Care Provider: Sukh Mora Referrals: Sukh Mora MD [Primary Care Provider] - As soon as possible Activity Restrictions/Additional Instructions: Follow-up with your doctor soon as possible. Continue your normal dosages of both seizure medications. Return if feeling worse. Disposition Disposition: Home, Self Care
[2021-10-18] MEDS: carBAMazepine 200 MG Tablet PO (13:50)
[2021-10-18] MEDS: levETIRAcetam 1,000 MG Tablet 1000 MG PO (13:50)
[2021-10-18 13:56] LABS: Absolute Lymphocyte Count 1.75 X10^3/uL (0.83-4.51); Basophil# 0.03 X10^3/uL; Basophil% 0.4 % (0-1); Eosinophil# 0.09 X10^3/uL; Eosinophils% 1.2 % (0-5); Hematocrit 42.4 % (40-54); Hemoglobin 14.1 g/dL (13.0-16.5); Lymphocyte # 1.75 X10^3/ul (0.83-4.51); Lymphocyte % 22.5 % (19-41); Mean Corp Hgb Conc 33.3 g/dL (32-36); Mean Corpuscular Hgb 31.3 pg (27.0-32.0); Mean Platelet Vol. 9.2 fl (6.2-12.0); Monocyte# 0.85 X10^3/uL; Monocyte% 10.9 % (0-10); NRBC Flagged by Analyzer 0 % (0-5); Neutrophil # 5.04 X10^3/uL (2.7-7.7); Neutrophil % 64.7 % (47-70); Platelet Count 386 K/mm3 (150-450); RBC Distribution Width CV 14.2 % (11.6-14.6); RBC Distribution Width SD 49.1 fl (35.1-43.9); Red Blood Count 4.51 M/mm3 (4.6-6.2); White Blood Count 7.8 K/mm3 (4.4-11.0)
[2021-10-18 14:11] LABS: Anion Gap 6 (5-15); BUN 14 mg/dL (7-18); BUN/Creat Ratio 13.6 RATIO (10-20); Calcium,Total 8.9 mg/dL (8.5-10.1); Chloride 107 mmol/L (98-107); Creatinine, Serum 1.03 mg/dL (0.70-1.30); EST Glomerular Filtration Rate 83 mL/min (>60); Est Glom Filt Rate - Afr Amer 100 mL/min (>60); Estimated Creatinine Clearance 87.62 ml/min; Glucose 120 mg/dL (74-106); Sodium Level 139 mmol/L (136-145)
[2021-10-18 14:24] LABS: Carbamazepine (Tegretol) 1.3 ug/mL (4.0-12.0)
[2021-10-18 15:09] VITALS: PULSE 61; RESP 20; O2SAT 98
[2021-10-18 15:56] VITALS: BP 124/75; PULSE 67; RESP 16; O2SAT 100
== END 2021-10-18 15:57 | disposition home or self-care (01) ==
PROVIDERS: Emergency Provider Emergency Medicine; PCP Family Medicine; Visit Provider Emergency Medicine
DX: G40.909 Epilepsy, unspecified, not intractable, without status epilepticus (principal); F17.210 Nicotine dependence, cigarettes, uncomplicated; Z59.00 Homelessness unspecified
CPT/HCPCS: 80048; 80156; 85025; 99285; A4216

== ENCOUNTER 2021-11-02 20:37 | Emergency (ER) | payer MEDICAID, SELFPAY ==
[2021-11-02 20:38] VITALS: BP 137/82; RESP 18; TEMP 36.8; O2SAT 97; BMI 24.3
--- NOTE | 2021-11-02 20:47 | EDS_ITS ---
HPI History of Present Illness Chief Complaint: Seizure Informant: patient Onset/Context/Timing Onset: Today Narrative Narrative: Patient presents via EMS after having 2 seizures today. He has a history of seizure disorder and is normally on Tegretol and Keppra. He states is been out of his medications the last couple days. He states the last thing he remembers tonight was folding his clothes. He then woke up with squad transporting him to the hospital. He does complain of a mild headache and pain around the left eyebrow. There is a small swollen area there. He denies biting his tongue or loss of bladder control. [facility] Medical History Hepatitis Hx of fracture of right hip Kidney disease Seizures Smoker Substance abuse Home Medications carbamazepine [Epitol] 200 mg PO TID 30 Days #90 tab 06/21/21 [Rx Last Taken Unknown] levetiracetam [Keppra] 1,000 mg PO BID 30 Days #60 tab 06/21/21 [Rx Last Taken Unknown] carbamazepine 200 mg PO TID #90 tab 11/02/21 [Rx Last Taken Unknown] levetiracetam [Keppra] 1,000 mg PO BID #60 tab 11/02/21 [Rx Last Taken Unknown] Allergy/AdvReac Type Severity Reaction Status Date / Time Penicillins Allergy Rash Verified 10/18/21 13:06 Sulfa (Sulfonamide Allergy Rash Verified 10/18/21 13:06 Antibiotics) Social History household members: none current occupational exposures/hazards: No history of recent travel: No Smoking Status: Current every day smoker tobacco type: cigarettes alcohol intake: current alcohol intake frequency: a few times a month substance use type: does not use ROS ROS ED Constitutional Constitutional ED: Denies chills or fever(s) Eyes Eyes: Denies change in vision ENT ENT ED: Denies sore throat Cardiovascular Cardiovascular: Denies chest pain Respiratory/Chest Respiratory/Chest: Denies cough or dyspnea Gastrointestinal Gastrointestinal: Denies abdominal pain, diarrhea, nausea or vomiting Genitourinary Genitourinary ED: Denies dysuria Musculoskeletal Musculoskeletal: Denies back pain Integumentary Denies rash Neurologic Neurologic: Reports headache(s); Denies weakness Allergic/Immunologic Allergic/Immunologic ED: Denies urticaria EXAM Physical Exam Const Vital Signs: 11/02/21 20:38 Temperature 98.3 F Temperature Source Temporal Respiratory Rate 18 Blood Pressure 137/82 H Blood Pressure Mean 100 Pulse Ox 97 Oxygen Delivery Method Room Air Positive well nourished and well developed General Appearance ED: well developed HEENT HEENT Narrative: Small hematoma along the lateral superior orbital rim on the left. Superficial abrasion. Extraocular movements fully intact. No tongue injury. Neck no lymphadenopathy and supple Neck Narrative: No C-spine tenderness. Chest Wall inspection of chest normal and palpation of chest normal Resp normal respiratory effort and clear to auscultation bilaterally Cardio regular rate and regular rhythm GI non-tender Palpation: soft Extremity normal to inspection Neuro oriented x3 Sensorium / Orientation: alert Psych mental status grossly normal Skin no rashes or lesions noted MDM MDM MDM Narrative Medical decision making narrative: Patient given his normal dose of carbamazepine and Keppra. Patient observed for an hour and remains at baseline. New prescriptions for his medications will be sent to the pharmacy for him. Discharge Plan Triage Chief Complaint: Seizure ED Provider: Mary Rainey Dx/Rx/DC Orders Clinical Impression: Breakthrough seizure Instructions: ED Seizure, Recurrent (Adult) Prescriptions: New carbamazepine 200 mg tablet 200 mg PO TID Qty: 90 RF: 0 levetiracetam [Keppra] 1,000 mg tablet 1,000 mg PO BID Qty: 60 RF: 0 No Action carbamazepine [Epitol] 200 mg tablet 200 mg PO TID 30 Days Qty: 90 RF: 0 levetiracetam [Keppra] 1,000 mg tablet 1,000 mg PO BID 30 Days Qty: 60 RF: 0 Primary Care Provider: Sukh Mora Referrals: Sukh Mora MD [Primary Care Provider] - 1-2 Weeks Disposition Disposition: Home, Self Care
[2021-11-02] MEDS: carBAMazepine 200 MG Tablet PO (21:19)
[2021-11-02] MEDS: levETIRAcetam 1,000 MG Tablet 1000 MG PO (21:19)
[2021-11-02 22:44] VITALS: BP 128/78; PULSE 88; RESP 14; TEMP 36.9; O2SAT 98
== END 2021-11-02 22:49 | disposition home or self-care (01) ==
PROVIDERS: Emergency Provider Emergency Medicine; PCP Family Medicine; Visit Provider Emergency Medicine
DX: R56.9 Unspecified convulsions (principal); R51.9 Headache, unspecified; F17.210 Nicotine dependence, cigarettes, uncomplicated
CPT/HCPCS: 99284

== ENCOUNTER 2021-11-13 07:16 | Emergency (ER) | payer MEDICAID, SELFPAY ==
[2021-11-13 07:18] VITALS: BP 164/80; PULSE 108; RESP 16; TEMP 36.7; O2SAT 100; BMI 23.0
--- NOTE | 2021-11-13 07:37 | EX.ED.DYSGE1 ---
HPI History of Present Illness Chief Complaint: Seizure Informant: patient Narrative Narrative: Patient is a 46-year-old male presenting from [facility] after seizure-like activity. Patient has a history of seizures and is noncompliant with his seizure medication. He supposed to be on Keppra and Tegretol. He states he has not taken it for couple days because I have not felt like it. He believes he does have the medicine but is not entirely sure. He had reported seizure activity at [facility] and EMS was called he was brought to the emergency room. Patient does not remember the event. Patient is complained of a mild headache. Does not think he hit his head. He denies any urinary incontinence or tongue injury. Is not clear what the characteristics of his seizure were. Patient has no other complaints at this time. Patient is had multiple ER visits for breakthrough seizures due to medical noncompliance over the past years. [facility] Medical History Hepatitis Hx of fracture of right hip Kidney disease Seizures Smoker Substance abuse Home Medications carbamazepine [Epitol] 200 mg PO TID 30 Days #90 tab 06/21/21 [Rx Last Taken Unknown] levetiracetam [Keppra] 1,000 mg PO BID #60 tab 11/02/21 [Rx Last Taken Unknown] Allergy/AdvReac Type Severity Reaction Status Date / Time Penicillins Allergy Rash Verified 11/13/21 07:23 Sulfa (Sulfonamide Allergy Rash Verified 11/13/21 07:23 Antibiotics) Social History household members: none current occupational exposures/hazards: No history of recent travel: No Smoking Status: Current every day smoker tobacco type: cigarettes alcohol intake: current alcohol intake frequency: a few times a month substance use type: does not use ROS ROS ED Constitutional Constitutional ED: Denies chills, fever(s) or malaise Eyes Eyes: Denies blurry vision or loss of vision ENT ENT ED: Denies rhinorrhea or sore throat Cardiovascular Cardiovascular: Denies chest pain or dizziness Respiratory/Chest Respiratory/Chest: Denies cough or dyspnea Gastrointestinal Gastrointestinal: Denies nausea or vomiting Genitourinary Genitourinary ED: Denies dysuria or hematuria Musculoskeletal Musculoskeletal: Denies arthralgias or myalgias Integumentary Denies rash or wounds Neurologic Neurologic: Reports headache(s) and other Details: Seizure activity reported ; Denies focal weakness Psychiatric Psychiatric: Denies anxiety or behavioral changes EXAM Physical Exam Const Vital Signs: 11/13/21 07:18 11/13/21 08:31 Temperature 98.1 F Temperature Source Oral Pulse Rate 108 H 66 Respiratory Rate 16 15 Blood Pressure 164/80 H 116/72 Blood Pressure Mean 108 Pulse Ox 100 98 Oxygen Delivery Method Room Air Positive well nourished and well developed General Appearance ED: well developed HEENT Reports TM's clear and moist mucous membranes Negative for trauma or tenderness Tympanic Membrane ED: Yes TM's clear Eyes PERRL and EOMs intact bilaterally Neck supple Neck Narrative: Normal range of motion, no nuchal rigidity General: Negative for tenderness Chest Wall inspection of chest normal Resp normal respiratory effort and clear to auscultation bilaterally Cardio regular rate, regular rhythm and no murmurs GI normal to inspection, nondistended, normoactive bowel sounds Extremity normal to inspection General Extremety ED: Negative for edema or tenderness General Extremity: Negative for edema Neuro oriented x3, CN's II-XII intact bilaterally and no sensory deficits noted Sensorium / Orientation: alert Motor Exam: strength 5/5 throughout Skin no rashes or lesions noted and no wounds MDM MDM MDM Narrative Medical decision making narrative: Patient evaluated for breakthrough seizure. He has normal neurologic exam at this time. No signs of trauma. He has been noncompliant with his medications which likely why he had a seizure. Patient will be given a dose of his medications as well as Tylenol. Will be monitored and then discharged. His vital signs are significant for mild hypertension and tachycardia which is consistent with having a seizure. Do not suspect meningitis or any other more serious neurologic complications at this time. Patient is monitored for an hour. Denies any further neurologic symptoms or further seizure activity. Is discharged. Discharge Plan Triage Chief Complaint: Seizure ED Provider: Nasrin Sanchez Dx/Rx/DC Orders Clinical Impression: Breakthrough seizure, Noncompliance with medication regimen Instructions: ED Seizure, Recurrent (Adult) Prescriptions: No Action carbamazepine [Epitol] 200 mg tablet 200 mg PO TID 30 Days Qty: 90 RF: 0 levetiracetam [Keppra] 1,000 mg tablet 1,000 mg PO BID Qty: 60 RF: 0 Primary Care Provider: Sukh Mora Referrals: Sukh Mora MD [Primary Care Provider] - Activity Restrictions/Additional Instructions: Please make sure you are taking your seizure medications to prevent having a seizure. Disposition Disposition: Home, Self Care Discharge Date/Time: 11/13/21 08:32
[2021-11-13] MEDS: Acetaminophen 325 MG Tablet 650 MG PO (07:52)
[2021-11-13] MEDS: levETIRAcetam 1,000 MG Tablet 1000 MG PO (07:53)
[2021-11-13] MEDS: carBAMazepine 200 MG Tablet PO (07:54)
[2021-11-13 08:31] VITALS: BP 116/72; PULSE 66; RESP 15; O2SAT 98
== END 2021-11-13 08:32 | disposition home or self-care (01) ==
PROVIDERS: Emergency Provider Emergency Medicine; PCP Family Medicine; Visit Provider Emergency Medicine
DX: G40.909 Epilepsy, unspecified, not intractable, without status epilepticus (principal); R51.9 Headache, unspecified; F17.210 Nicotine dependence, cigarettes, uncomplicated; I10 Essential (primary) hypertension; Z91.14 Patient's other noncompliance with medication regimen
CPT/HCPCS: 99285; A4216

== ENCOUNTER 2021-12-26 18:54 | Emergency (ER) | payer MEDICAID, SELFPAY ==
[2021-12-26 18:57] VITALS: BP 141/77; PULSE 98; RESP 18; TEMP 37.2; O2SAT 96; BMI 28.2
--- NOTE | 2021-12-26 19:17 | EDS_ITS ---
HPI History of Present Illness Chief Complaint: Seizure Informant: patient Onset/Context/Timing Onset: Today Context: Sudden Onset Timing: Intermittent Quality: Unknown Location: Generalized Worsened by: Nothing Relieved by: Nothing Narrative Narrative: Patient presents with seizure that occurred today. Patient states that he was in line for food at the [employer] when he was told he had a seizure. Patient states he remembers standing in line and then remembers waking up in the back of the ambulance. Patient denies biting his tongue. Patient denies any incontinence of urine or stool. Patient denies any fevers or chills. Patient states he normally takes Keppra 1000 mg twice a day and Tegretol 200 mg 3 times a day for his seizures. Patient states he ran out last night. PFSH [facility] Medical History Hepatitis Hx of fracture of right hip Kidney disease Seizures Smoker Substance abuse Home Medications carbamazepine [Epitol] 200 mg PO TID 30 Days #90 tab 12/26/21 [Rx Last Taken Unknown] levetiracetam [Keppra] 1,000 mg PO BID #60 tab 12/26/21 [Rx Last Taken Unknown] Allergy/AdvReac Type Severity Reaction Status Date / Time Penicillins Allergy Rash Verified 12/26/21 19:07 Sulfa (Sulfonamide Allergy Rash Verified 12/26/21 19:07 Antibiotics) Social History household members: none current occupational exposures/hazards: No history of recent travel: No Smoking Status: Current every day smoker tobacco type: cigarettes alcohol intake: current alcohol intake frequency: a few times a month substance use type: does not use ROS ROS ED Constitutional Constitutional ED: Denies chills or fever(s) Eyes Eyes: Denies blurry vision or change in vision ENT ENT ED: Denies rhinorrhea or sore throat Cardiovascular Cardiovascular: Denies chest pain or palpitations Respiratory/Chest Respiratory/Chest: Denies cough or dyspnea Gastrointestinal Gastrointestinal: Denies nausea or vomiting Genitourinary Genitourinary ED: Denies dysuria or hematuria Musculoskeletal Musculoskeletal: Denies back pain or neck pain Integumentary Denies abscess or rash Neurologic Neurologic: Denies headache(s) or weakness Allergic/Immunologic Allergic/Immunologic ED: Denies mouth swelling or urticaria EXAM Physical Exam Const Vital Signs: 12/26/21 18:57 12/26/21 19:49 12/26/21 21:00 Temperature 98.9 F Temperature Source Temporal Pulse Rate 98 89 86 Respiratory Rate 18 24 H 18 Blood Pressure 141/77 H 126/60 H 128/72 H Blood Pressure Mean 98 82 Pulse Ox 96 97 97 Oxygen Delivery Method Room Air Room Air 12/26/21 21:41 Temperature 97.8 F Temperature Source Temporal Pulse Rate 94 Respiratory Rate 16 Blood Pressure 150/86 H Blood Pressure Mean 107 Pulse Ox 96 Oxygen Delivery Method Room Air Positive well nourished and well developed General Appearance ED: well developed HEENT Reports moist mucous membranes Neck supple and no JVD Resp normal respiratory effort and clear to auscultation bilaterally Cardio regular rate, regular rhythm and no murmurs GI normal to inspection, nondistended, normoactive bowel sounds and non-tender Palpation: soft Extremity normal to inspection General Extremety ED: Negative for edema or tenderness General Extremity: Negative for edema Neuro oriented x3, CN's II-XII intact bilaterally and no sensory deficits noted Sensorium / Orientation: alert Motor Exam: strength 5/5 throughout Psych mental status grossly normal Skin no rashes or lesions noted MDM MDM MDM Narrative Medical decision making narrative: Tegretol level was ordered that was subtherap eutic at 1.2. Patient was given a dose of Keppra and Tegretol here. Patient was given prescriptions for short-term refills of his Keppra and Tegretol. Patient was instructed to follow-up with his primary care physician in 5 to 7 days for reevaluation. Patient understood and was agreeable with the plan. All questions were answered. After discharge, the patient remembers walking down the street. Patient states that he may have fallen down. Patient remembers being here in the emergency department. Patient is unsure if he had another seizure. Patient admits to some mild headache and left elbow pain. Patient denies any incontinence of urine or stool. Patient denies biting his tongue. Patient has superficial abrasions over posterior aspect of the left elbow and occipital scalp. There is no active bleeding. There are no foreign bodies. There is no bony crepitance or step-off. There is good range of motion of the left elbow. Cranial nerves II through XII are intact. There are no focal motor or sensory deficits noted. Patient is not on any anticoagulants. I do not feel CT scan of the head is necessary at this time since he is neurologically intact and back to his normal baseline mental status. Patient states his last tetanus was approximately 2 years ago. Patient states he feels better and wants to go home. Bacitracin dressings were applied to the left elbow. Patient will be discharged. Patient was encouraged to fill his prescriptions tomorrow. Patient understood and was agreeable with the plan. All questions were answered. Lab Data Labs: Laboratory Results - last 24 hr 12/26/21 19:28 Carbamazepine 1.2 L Discharge Plan Triage Chief Complaint: Seizure ED Provider: Rajendra Patel Dx/Rx/DC Orders Clinical Impression: Seizure disorder Instructions: ED Seizure, Recurrent (Adult) Prescriptions: Continued carbamazepine [Epitol] 200 mg tablet 200 mg PO TID 30 Days Qty: 90 RF: 0 levetiracetam [Keppra] 1,000 mg tablet 1,000 mg PO BID Qty: 60 RF: 0 Primary Care Provider: Sukh Mora Referrals: Sukh Mora MD [Primary Care Provider] - Disposition Disposition: Home, Self Care Discharge Date/Time: 12/26/21 21:11
[2021-12-26 19:49] VITALS: BP 126/60; PULSE 89; RESP 24; O2SAT 97
[2021-12-26 20:18] LABS: Carbamazepine (Tegretol) 1.2 ug/mL (4.0-12.0)
[2021-12-26 21:00] VITALS: BP 128/72; PULSE 86; RESP 18; O2SAT 97
[2021-12-26] MEDS: levETIRAcetam 1,000 MG Tablet 1000 MG PO (21:10)
[2021-12-26] MEDS: carBAMazepine 200 MG Tablet PO (21:10)
--- NOTE | 2021-12-26 21:40 | ED.RN ---
pt. discharged less than 1 hour ago and was found down on side walk across from hospital after an apparent seizure.
[2021-12-26 21:41] VITALS: BP 150/86; PULSE 94; RESP 16; TEMP 36.6; O2SAT 96
== END 2021-12-26 22:35 | disposition home or self-care (01) ==
PROVIDERS: Emergency Provider Emergency Medicine; PCP Family Medicine; Visit Provider Emergency Medicine
DX: G40.909 Epilepsy, unspecified, not intractable, without status epilepticus (principal); F17.210 Nicotine dependence, cigarettes, uncomplicated; Z79.899 Other long term (current) drug therapy
CPT/HCPCS: 80156; 99285; A4216

== ENCOUNTER 2022-01-10 16:24 | Emergency (ER) | payer MEDICAID, SELFPAY ==
[2022-01-10 16:24] VITALS: BP 164/75; PULSE 113; RESP 16; TEMP 36.8; O2SAT 99; BMI 27.3
--- NOTE | 2022-01-10 16:36 | EDS_ITS ---
HPI History of Present Illness Chief Complaint: Seizure Informant: patient Onset/Context/Timing Onset: Today Current Severity: Gone Associated Symptoms Associated Symptoms: Negative for Headache, Nausea, Vomiting and Chest Pain Narrative Narrative: 6-year-old homeless male with a history of seizures and hepatitis. Patient states he has been taking both his Tegretol and Keppra as prescribed. Today he was at the [employer] when he had a seizure x1. He denies any injuries. Paramedics were called. And brought him in. He does not even want to be evaluated. Prior similar symptoms: Yes Recent Illness/Hospitalization: No PFSH PFSH Medical History Hepatitis Hx of fracture of right hip Kidney disease Seizures Smoker Substance abuse Home Medications carbamazepine [Epitol] 200 mg PO TID 30 Days #90 tab 12/26/21 [Rx Last Taken Unknown] levetiracetam [Keppra] 1,000 mg PO BID #60 tab 12/26/21 [Rx Last Taken Unknown] Allergy/AdvReac Type Severity Reaction Status Date / Time Penicillins Allergy Rash Verified 01/10/22 16:26 Sulfa (Sulfonamide Allergy Rash Verified 01/10/22 16:26 Antibiotics) Social History household members: none current occupational exposures/hazards: No history of recent travel: No Smoking Status: Current every day smoker tobacco type: cigarettes alcohol intake: current alcohol intake frequency: a few times a month substance use type: does not use ROS ROS ED ROS Narrative Patient denies any recent illness. No headaches. Review of Systems ROS Unobtainable: Denies due to encephalopathy Constitutional Constitutional ED: Denies fever(s) Eyes Eyes: Denies change in vision ENT ENT ED: Denies ear pain Cardiovascular Cardiovascular: Denies chest pain Respiratory/Chest Respiratory/Chest: Denies dyspnea Gastrointestinal Gastrointestinal: Denies abdominal pain, nausea or vomiting Genitourinary Genitourinary ED: Denies dysuria Musculoskeletal Musculoskeletal: Denies myalgias Integumentary Denies rash Neurologic Neurologic: Denies headache(s) Psychiatric Psychiatric: Denies depression Endocrine Endocrinology: Denies polyuria Hematologic/Lymphatic Hematologic/Lymphatic: Denies easy bruising Allergic/Immunologic Allergic/Immunologic ED: Denies urticaria EXAM Physical Exam Narrative Exam Narrative: 46-year-old male no acute distress. Vital signs stable afebrile. Sitting upright in bed. H EENT exam unremarkable atraumatic. Pupils round reactive light. Neck nontender. Lungs clear to auscultation. Heart regular rhythm rate about 100 no murmur. Chest wall nontender. Abdomen soft nontender. Back nontender. Moving all 4 extremities. 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 Dorsi plantarflexion intact. He is awake alert. He is currently not postictal. His neurologic exam is normal. His NIH is 0. Const Vital Signs: 01/10/22 16:24 Temperature 98.3 F Temperature Source Oral Pulse Rate 113 H Respiratory Rate 16 Blood Pressure 164/75 H Blood Pressure Mean 104 Pulse Ox 99 Oxygen Delivery Method Room Air Positive well nourished and well developed; Negative for obese, cachectic, contractures or unkempt General Appearance ED: well developed and NAD; Negative for unkempt, cachectic or contractures Nutritional Appearance: Negative for cachectic or obese HEENT Reports moist mucous membranes atraumatic; Negative for trauma Eyes PERRL and EOMs intact bilaterally General Eye ED: Negative for pale conjunctiva or scleral icterus Neck no lymphadenopathy, supple and no JVD General: Negative for tenderness Chest Wall inspection of chest normal and palpation of chest normal Resp normal respiratory effort and clear to auscultation bilaterally Auscultation: Negative for rales, rhonchi or wheezes Cardio no murmurs Rate: regular rate Rhythm: regular rhythm Heart Sounds: S1 normal and S2 normal GI normal to inspection, nondistended, normoactive bowel sounds, soft to palpation, non-tender, non-distended and no masses Auscultation: normoactive bowel sounds Palpation: Negative for tender, guarding or rebound tenderness present Back/Spine no CVA tenderness General Back: Negative for CVA tenderness Cervical Spine: Negative for cervical spine tenderness Thoracic Spine / Upper Back: Negative for thoracic spinal tenderness Extremity normal to inspection General Extremety ED: Negative for deformity, edema or tenderness General Extremity: Negative for deformity or edema Psych Appearance: Negative for unkempt STROKE Vital Signs/Narrative: Vital Signs Temp Pulse Resp BP Pulse Ox 01/10/22 16:24 98.3 F 113 H 16 164/75 H 99 MDM MDM MDM Narrative Medical decision making narrative: 46-year-old male recurrent breakthrough seizure. Exam is normal. Every time they do a Tegretol level is low. He really does not want any testing done today. He will follow up with his doctors. He states he has his current medications. Discharge Plan Triage Chief Complaint: Seizure ED Provider: Nasim Lowry Dx/Rx/DC Orders Clinical Impression: Breakthrough seizure, Seizure disorder Instructions: ED Seizure, Recurrent (Adult) Prescriptions: No Action carbamazepine [Epitol] 200 mg tablet 200 mg PO TID 30 Days Qty: 90 RF: 0 levetiracetam [Keppra] 1,000 mg tablet 1,000 mg PO BID Qty: 60 RF: 0 Primary Care Provider: Sukh Mora Referrals: Sukh Mora MD [Primary Care Provider] - As Needed Activity Restrictions/Additional Instructions: Make sure you are taking your seizure medications as prescribed. Follow-up with your doctor as needed. Return if you have another seizure or feel worse. Disposition Disposition: Home, Self Care
--- NOTE | 2022-01-10 16:52 | CM.ED ---
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 Patient is homeless and residing at the [facility]. SW provided patient with [employer] resource and the phone number for the Homeless Navigator. SW asked if patient had any other issues or concerns and patient said no. Plan: Resources Provided
== END 2022-01-10 16:52 | disposition home or self-care (01) ==
LOC: ED 16:52
PROVIDERS: Emergency Provider Emergency Medicine; PCP Family Medicine; Visit Provider Emergency Medicine
DX: G40.909 Epilepsy, unspecified, not intractable, without status epilepticus (principal); Z59.00 Homelessness unspecified; F17.210 Nicotine dependence, cigarettes, uncomplicated
CPT/HCPCS: 99284

== ENCOUNTER 2022-02-07 19:47 | Emergency (ER) | payer MEDICAID, SELFPAY ==
[2022-02-07 19:48] VITALS: BP 138/88; PULSE 98; RESP 16; TEMP 37.1; O2SAT 96; BMI 25.3
[2022-02-07 19:51] VITALS: BP 133/88; PULSE 102; RESP 16; O2SAT 96
--- NOTE | 2022-02-07 20:19 | CT_ITS ---
EXAM: CT HEAD WITHOUT INTRAVENOUS CONTRAST CLINICAL INDICATION: injury TECHNIQUE: Multiple axial images were obtained of the head without intravenous contrast. This CT exam was performed using one or more of the following dose reduction techniques: automated exposure control, adjustment of the mA and/or kV according to patient size, and/or use of iterative reconstruction technique. This report was created using [employer] report generation technology. RADIATION DOSE: CTDIvol = 44.99 mGy, DLP = 796.11 mGy-cm COMPARISON: None. FINDINGS: BRAIN AND EXTRA-AXIAL SPACES: Unremarkable. No intra- or extra-axial hemorrhage. No evidence of acute infarct. No intracranial mass or mass effect. There is preservation of the martínez/white matter interface. Posterior fossa structures are unremarkable. Ventricles are appropriate for age. No hydrocephalus. Basal cisterns are patent. BONES/JOINTS: Unremarkable. No discrete lytic or blastic abnormalities. SINUSES: Unremarkable as visualized. Clear. MASTOID AIR CELLS: Unremarkable. Clear. ORBITS: Visualized globes, extraocular muscles, optic nerves and retrobulbar fat appear unremarkable. OTHER FINDINGS: None. CT/Brain/Head without Contrast IMPRESSION: No acute findings in the head/brain. Electronically Signed: Lisa Love MD at 22:00 EDT ,
--- NOTE | 2022-02-07 20:19 | CT_ITS ---
EXAM: CT CERVICAL SPINE WITHOUT INTRAVENOUS CONTRAST CLINICAL INDICATION: injury TECHNIQUE: Helically acquired images were obtained of the cervical spine without intravenous contrast. 2D reformatted images were reviewed. This CT exam was performed using one or more of the following dose reduction techniques: automated exposure control, adjustment of the mA and/or kV according to patient size, and/or use of iterative reconstruction technique. This report was created using [employer] report generation technology. RADIATION DOSE: CTDIvol = 22.32 mGy, DLP = 531.76 mGy-cm COMPARISON: None. FINDINGS: LIMITATIONS: Mild asymmetric and rotated patient positioning. VERTEBRAE: There is moderate predominantly anterior spondylosis at C5-6 and C6-7 and milder posterior and uncovertebral spondylosis. No fracture. No traumatic subluxation. No discrete lytic or blastic abnormality. Normal alignment. Normal craniocervical junction and cervicothoracic junction. DISCS/SPINAL CANAL/NEURAL FORAMINA: Mild disc space narrowing at C5-C7. Mild spinal stenosis at C6-C7, the AP diameter in the midline is estimated to be 9 mm. Mild bilateral C6-C7 neural foraminal stenosis. SOFT TISSUES: Unremarkable. No prevertebral soft tissue swelling. LYMPH NODES: Unremarkable. No cervical adenopathy. LUNG APICES: Unremarkable as visualized. Clear. CT/Spine Cervical without Contras IMPRESSION: No acute posttraumatic abnormality. Degenerative changes including mild spinal and neural foraminal stenosis at C6-C7 Electronically Signed: Lisa Love MD at 22:08 EDT ,
[2022-02-07 22:06] VITALS: BP 124/76; PULSE 92; RESP 15; O2SAT 95
--- NOTE | 2022-02-07 23:17 | EX.ED.DYSGE1 ---
HPI History of Present Illness Chief Complaint: Seizure Informant: patient and EMS Narrative Narrative: 46-year-old male frequent visitor of the emergency room with a seizure disorder presents after he was found at the base of some steps with a crack pipe possibly had a seizure but is not talking at the current time. EMS notes no outward signs of trauma. PFSH PFSH Medical History Hepatitis Hx of fracture of right hip Kidney disease Seizures Smoker Substance abuse Home Medications carbamazepine [Epitol] 200 mg PO TID 30 Days #90 tab 12/26/21 [Rx Last Taken Unknown] levetiracetam [Keppra] 1,000 mg PO BID #60 tab 12/26/21 [Rx Last Taken Unknown] Allergy/AdvReac Type Severity Reaction Status Date / Time Penicillins Allergy Rash Verified 01/10/22 16:26 Sulfa (Sulfonamide Allergy Rash Verified 01/10/22 16:26 Antibiotics) Social History household members: none current occupational exposures/hazards: No history of recent travel: No Smoking Status: Current every day smoker tobacco type: cigarettes alcohol intake: current alcohol intake frequency: a few times a month substance use type: does not use ROS ROS ED Review of Systems ROS Unobtainable: due to mental status EXAM Physical Exam Const Vital Signs: 02/07/22 19:48 02/07/22 19:51 02/07/22 22:06 Temperature 98.8 F Temperature Source Temporal Pulse Rate 98 102 H 92 Respiratory Rate 16 16 15 Blood Pressure 138/88 H 133/88 H 124/76 H Blood Pressure Mean 104 103 92 Pulse Ox 96 96 95 Oxygen Delivery Method Room Air Room Air Room Air Positive well nourished and well developed General Appearance ED: well developed HEENT Reports normocephalic, head/scalp atraumatic, TM's clear and moist mucous membranes Negative for trauma Tympanic Membrane ED: Yes TM's clear Eyes PERRL and EOMs intact bilaterally Neck no lymphadenopathy, supple and no JVD Resp normal respiratory effort and clear to auscultation bilaterally Cardio regular rate, regular rhythm and no murmurs GI normal to inspection, nondistended, normoactive bowel sounds and non-tender Palpation: soft Back/Spine no CVA tenderness and normal ROM Extremity normal to inspection General Extremety ED: Negative for edema General Extremity: Negative for edema Neuro CN's II-XII intact bilaterally Sensorium / Orientation: stuporous Motor Exam: strength 5/5 throughout Psych Mood & Affect: Negative for depressed or tearful Skin no rashes or lesions noted and no wounds MDM MDM MDM Narrative Medical decision making narrative: CT of the brain and cervical spine were negative for acute. Patient was allowed to rest and after a couple hours I went to check on him. I asked him what it happened tonight and he tells me you tell me you are the doctor. I told him that I was told he was found at the base of the stairs with a crack pipe he says no shit, I clean up around the latter-day you can ask the fucking cycle consultant. Based on that response I have to say that the patient is not experiencing an acute medical emergency and can be discharged. Security will escort him out Radiography Diagnostic Testing: Clinical Impression(s) from Imaging Studies Brain CT 02/07/22 20:19 IMPRESSION: No acute findings in the head/brain. Electronically Signed: Lisa Love MD at 22:00 EDT , Cervical Spine CT 02/07/22 20:19 IMPRESSION: No acute posttraumatic abnormality. Degenerative changes including mild spinal and neural foraminal stenosis at C6-C7 Electronically Signed: Lisa Love MD at 22:08 EDT , Discharge Plan Triage Chief Complaint: Seizure ED Provider: Lonny Woodall Dx/Rx/DC Orders Clinical Impression: Seizure disorder, Fall Prescriptions: No Action carbamazepine [Epitol] 200 mg tablet 200 mg PO TID 30 Days Qty: 90 RF: 0 levetiracetam [Keppra] 1,000 mg tablet 1,000 mg PO BID Qty: 60 RF: 0 [facility]: [facility]ain [facility]errals: [facility] [Primary Care Provider] - Keep Sandeep appointment Disposition Disposition: Home, Self Care
[2022-02-07 23:23] VITALS: BP 131/84; PULSE 97; RESP 16; O2SAT 97
== END 2022-02-07 23:24 | disposition home or self-care (01) ==
PROVIDERS: Emergency Provider Emergency Medicine; Visit Provider Emergency Medicine
DX: G40.909 Epilepsy, unspecified, not intractable, without status epilepticus (principal); F17.210 Nicotine dependence, cigarettes, uncomplicated
CPT/HCPCS: 70450; 72125; 99283

== ENCOUNTER 2022-03-05 18:03 | Emergency (ER) | payer MEDICAID, SELFPAY ==
[2022-03-05 18:03] VITALS: BP 150/100; PULSE 106; RESP 22; TEMP 36.8; O2SAT 94; BMI 27.6
--- NOTE | 2022-03-05 18:19 | EDS_ITS ---
HPI History of Present Illness Chief Complaint: Seizure Narrative Narrative: 46-year-old male with history of seizure disorder presenting after a seizure which he had at home. He states he was in his backyard and had a breakthrough seizure. He has been taking his carbamazepine and Keppra. He states he follows up with Estelle Diaz but has not made a follow-up appointment since last visit to the ER. He denies sleep deprivation. He denies alcohol use. He states that he did not want to come into the emergency room today, but the police were called because of his seizure and they were searching him while he was postictal and he states that they told him he had to come to the ER he would be arrested. Patient does not want an evaluation. He states he feels otherwise fine. He complains of very mild headache. [facility] Medical History Hepatitis Hx of fracture of right hip Kidney disease Seizures Smoker Substance abuse Home Medications carbamazepine [Epitol] 200 mg PO TID 30 Days #90 tab 12/26/21 [Rx Last Taken Unknown] levetiracetam [Keppra] 1,000 mg PO BID #60 tab 12/26/21 [Rx Last Taken Unknown] Allergy/AdvReac Type Severity Reaction Status Date / Time Penicillins Allergy Rash Verified 03/05/22 18:06 Sulfa (Sulfonamide Allergy Rash Verified 03/05/22 18:06 Antibiotics) Social History household members: none current occupational exposures/hazards: No history of recent travel: No Smoking Status: Current every day smoker tobacco type: cigarettes alcohol intake: current alcohol intake frequency: a few times a month substance use type: does not use ROS ROS ED Constitutional Constitutional ED: Denies chills or fever(s) Eyes Eyes: Denies blurry vision or change in vision ENT ENT ED: Denies rhinorrhea or sore throat Cardiovascular Cardiovascular: Denies chest pain or palpitations Respiratory/Chest Respiratory/Chest: Denies cough or dyspnea Gastrointestinal Gastrointestinal: Denies abdominal pain, diarrhea, nausea or vomiting Genitourinary Genitourinary ED: Denies dysuria or hematuria Musculoskeletal Musculoskeletal: Denies arthralgias, myalgias or neck pain Integumentary Reports Abrasions Neurologic Neurologic: Reports headache(s) and seizure-like activity; Denies paresthesias or weakness Psychiatric Psychiatric: Denies anxiety or depression Endocrine Endocrinology: Denies polydipsia or polyuria EXAM Physical Exam Const Vital Signs: 03/05/22 18:03 Temperature 98.2 F Temperature Source Oral Pulse Rate 106 H Respiratory Rate 22 H Blood Pressure 150/100 H Blood Pressure Mean 116 Pulse Ox 94 Oxygen Delivery Method Room Air Positive well nourished General Appearance ED: NAD HEENT HEENT Narrative: Superficial abrasions to the left forehead and left congregational. No tenderness to palpation. No other facial bone trauma. No hemotympanum. No epistaxis or nasal bone deformity. Eyes PERRL and EOMs intact bilaterally Resp normal respiratory effort and clear to auscultation bilaterally GI normal to inspection, nondistended, normoactive bowel sounds Back/Spine normal to inspection and no thoracic nor lumbar tenderness Neuro oriented x3, CN's II-XII intact bilaterally, moves all extremities, no focal motor deficits and no sensory deficits noted Sensorium / Orientation: alert Motor Exam: strength 5/5 throughout Psych mental status grossly normal and thought process normal Skin Skin Narrative: Superficial abrasions as described above for MDM MDM MDM Narrative Medical decision making narrative: Patient status post seizure and has a history of epilepsy and breakthrough seizures. He states he feels otherwise fine. He states he was postictal for short while in the placement of come to the ER because he was combative. Patient has no complaints currently. He does not want further work-up or evaluation. He does want ibuprofen for his mild headache. He does not have any focal neurologic deficits or lateralizing signs or symptoms. He has no nausea. No visual complaints. I feel at this time he is able to make his own decisions. Patient given return precautions. Impression: 1. History of epilepsy 2. Breakthrough seizure 3. Superficial scalp abrasions Discharge Plan Triage Chief Complaint: Seizure Other Complaint: Head Injury ED Provider: Madhu Andersen Dx/Rx/DC Orders Instructions: ED Seizure, Recurrent (Adult) Prescriptions: No Action carbamazepine [Epitol] 200 mg tablet 200 mg PO TID 30 Days Qty: 90 RF: 0 levetiracetam [Keppra] 1,000 mg tablet 1,000 mg PO BID Qty: 60 RF: 0 Primary Care Provider: [facility] Estelle Mclain [facility]errals[facility] [Primary Care Provider] - Disposition Disposition: Home, Self Care
[2022-03-05] MEDS: Ibuprofen 400 MG Tablet 800 MG PO (18:27)
[2022-03-05 18:34] VITALS: BP 141/101; PULSE 98; RESP 16; O2SAT 99
== END 2022-03-05 18:35 | disposition home or self-care (01) ==
PROVIDERS: Emergency Provider Student in an Organized Health Care Education/Training Program; Visit Provider Student in an Organized Health Care Education/Training Program
DX: G40.909 Epilepsy, unspecified, not intractable, without status epilepticus (principal); S00.01XA Abrasion of scalp, initial encounter; R51.9 Headache, unspecified; F17.210 Nicotine dependence, cigarettes, uncomplicated
CPT/HCPCS: 99285

== ENCOUNTER 2022-03-17 10:46 | Emergency (ER) | payer MEDICAID, SELFPAY ==
[2022-03-17 10:47] VITALS: BP 137/77; PULSE 108; RESP 16; TEMP 36.2; O2SAT 93; BMI 27.4
--- NOTE | 2022-03-17 11:02 | CT_ITS ---
STUDY: CT CERVICAL SPINE WITHOUT CONTRAST REASON FOR EXAM: Male, 46 years old. Follow due to a seizure. RADIATION DOSAGE (If Supplied By Facility): CTDIvol = ( 21.49 ) mGy, DLP = ( 475.66 ) mGycm TECHNIQUE: High resolution transaxial imaging was performed without contrast material. Sagittal and coronal images were reconstructed. Individualized dose optimization techniques were used for this CT. COMPARISON: Comparison is made with prior study dated 02/07/2022. FINDINGS: Normal craniovertebral junction. Normal anterior atlantoaxial articulation. Normal odontoid process. Normal cervical lordosis. Normal vertebral bodies and posterior osseous elements. C2-3: Normal endplates. Normal disc height and morphology. Normal central canal and intervertebral neuroforamina. C3-4: Normal endplates. Normal disc height and morphology. Normal central canal and intervertebral neuroforamina. C4-5: Normal endplates. Normal disc height and morphology. Normal central canal and intervertebral neuroforamina. C5-6: Marked degree of disc space narrowing and anterior spondylosis. Mild degree of bilateral neural foraminal stenosis. C6-7: Moderate degree of disc space narrowing. C7-T1: Normal endplates. Normal disc height and morphology. Normal central canal and intervertebral neuroforamina. Normal visualized soft tissue structures. CT/Spine Cervical without Contras IMPRESSION: Multilevel degenerative changes, as described above. Electronically Signed: Ilan Viera MD at 12:06 EDT ,
--- NOTE | 2022-03-17 11:02 | CT_ITS ---
STUDY: CT BRAIN WITHOUT CONTRAST REASON FOR EXAM: Male, 46 years old. Seizure, fall RADIATION DOSAGE (If Supplied By Facility): CTDIvol = ( 44.99 ) mGy, DLP = ( 829.85 ) mGycm TECHNIQUE: Transaxial CT imaging of the brain was performed without administration of intravenous contrast material. Individualized dose optimization techniques were used for this CT. COMPARISON: Comparison is made with prior study dated 02/07/2022. FINDINGS: Normal soft tissue structures. Normal calvarium. Normal size ventricles and extra-axial spaces for the patient''s age. Normal white matter tracts of the cerebral hemispheres. Normal basal ganglia and thalami. Normal brainstem. Normal cerebellum. There is no intracranial hemorrhage. There are no findings of an acute ischemic infarction. Normal visualized paranasal sinuses. CT/Brain/Head without Contrast IMPRESSION: Normal unenhanced CT scan of the brain. Electronically Signed: Ilan Viera MD at 12:04 EDT ,
--- NOTE | 2022-03-17 11:03 | EDS_ITS ---
HPI History of Present Illness Chief Complaint: Seizure Informant: patient Narrative Narrative: Patient presents after seizure. Has a history of seizure disorder and is currently on Keppra and Tegretol. Patient presents via EMS with facial abrasions. He states he is taking his Tegretol and Keppra as scheduled. He does have several breakthrough seizures and is seen here frequently for these. He denies any complaint at this time. PFSH PFS Medical History Hepatitis Hx of fracture of right hip Kidney disease Seizures Smoker Substance abuse Home Medications carbamazepine [Epitol] 200 mg PO TID 30 Days #90 tab 12/26/21 [Rx Last Taken Unknown] levetiracetam [Keppra] 1,000 mg PO BID #60 tab 12/26/21 [Rx Last Taken Unknown] Allergy/AdvReac Type Severity Reaction Status Date / Time Penicillins Allergy Rash Verified 03/17/22 10:53 Sulfa (Sulfonamide Allergy Rash Verified 03/17/22 10:53 Antibiotics) Social History household members: none current occupational exposures/hazards: No history of recent travel: No Smoking Status: Current every day smoker tobacco type: cigarettes alcohol intake: current alcohol intake frequency: a few times a month substance use type: does not use ROS ROS ED Constitutional Constitutional ED: Denies chills or fever(s) Eyes Eyes: Denies change in vision ENT ENT ED: Reports other Details: Facial abrasions ; Denies sore throat Cardiovascular Cardiovascular: Denies chest pain Respiratory/Chest Respiratory/Chest: Denies cough or dyspnea Gastrointestinal Gastrointestinal: Denies abdominal pain, nausea or vomiting Musculoskeletal Musculoskeletal: Denies back pain or neck pain Integumentary Reports Abrasions; Denies rash Neurologic Neurologic: Denies headache(s) or weakness Allergic/Immunologic Allergic/Immunologic ED: Denies urticaria EXAM Physical Exam Const Vital Signs: 03/17/22 10:47 03/17/22 11:53 03/17/22 13:07 Temperature 97.1 F L Temperature Source Temporal Pulse Rate 108 H 79 Respiratory Rate 16 16 Blood Pressure 137/77 H 127/70 H 128/75 H Blood Pressure Mean 97 89 92 Pulse Ox 93 95 98 Oxygen Delivery Method Room Air Room Air Room Air Positive well nourished and well developed General Appearance ED: well developed HEENT HEENT Narrative: Abrasions across the medial forehead and nose. No active bleeding at this time. Eyes PERRL and EOMs intact bilaterally Neck supple Chest Wall inspection of chest normal and palpation of chest normal Resp normal respiratory effort and clear to auscultation bilaterally Cardio regular rate and regular rhythm GI non-tender Palpation: soft Extremity normal to inspection Neuro oriented x3 and no sensory deficits noted Sensorium / Orientation: alert Motor Exam: strength 5/5 throughout Psych mental status grossly normal MDM MDM MDM Narrative Medical decision making narrative: Patient sent for CT scan of the head and C- spine. Wounds are cleansed. No full-thickness lacerations noted. Patient is given a gram of IV Keppra. Radiography Diagnostic Testing: Clinical Impression(s) from Imaging Studies Brain CT 03/17/22 11:02 IMPRESSION: Normal unenhanced CT scan of the brain. Electronically Signed: Ilan Viera MD at 12:04 EDT , Cervical Spine CT 03/17/22 11:02 IMPRESSION: Multilevel degenerative changes, as described above. Electronically Signed: Ilan Viera MD at 12:06 EDT , Treatment and Re-Evaluation Narrative: On repeat evaluation patient resting comfortably. CT scans are unremarkable. Patient states he has plenty of his medication at home. He is to follow-up with his physician. Discharge Plan Triage Chief Complaint: Seizure ED Provider: Mary Rainey Dx/Rx/DC Orders Clinical Impression: Seizure, Abrasion of face Instructions: First Aid: Cuts and Scrapes, ED Seizure, Recurrent (Adult) Prescriptions: No Action carbamazepine [Epitol] 200 mg tablet 200 mg PO TID 30 Days Qty: 90 RF: 0 levetiracetam [Keppra] 1,000 mg tablet 1,000 mg PO BID Qty: 60 RF: 0 Primary Care Provider: [facility] - 1-2 Weeks Disposition Disposition: Home, Self Care
[2022-03-17] MEDS: levETIRAcetam IV 1,000 MG/100 ML BAG 400 MG IV (11:35)
[2022-03-17 11:53] VITALS: BP 127/70; PULSE 79; RESP 16; O2SAT 95
[2022-03-17 13:07] VITALS: BP 128/75; O2SAT 98
== END 2022-03-17 13:24 | disposition home or self-care (01) ==
PROVIDERS: Emergency Provider Emergency Medicine; Visit Provider Emergency Medicine
DX: G40.909 Epilepsy, unspecified, not intractable, without status epilepticus (principal); F17.210 Nicotine dependence, cigarettes, uncomplicated; S00.81XA Abrasion of other part of head, initial encounter; Z79.899 Other long term (current) drug therapy; X58.XXXA Exposure to other specified factors, initial encounter; Y93.9 Activity, unspecified; Y99.9 Unspecified external cause status; Y92.9 Unspecified place or not applicable
CPT/HCPCS: 70450; 72125; 96365; 99285; A4216

== ENCOUNTER 2022-03-19 08:39 | Emergency (ER) | payer MEDICAID, SELFPAY ==
[2022-03-19 08:41] VITALS: BP 141/76; PULSE 109; RESP 20; TEMP 36.6; O2SAT 91; BMI 26.6
--- NOTE | 2022-03-19 08:46 | ED.RN ---
pt a&o x 3. augmentative, slamming legs on bed, scowling at staff.
--- NOTE | 2022-03-19 09:04 | EDS_ITS ---
HPI History of Present Illness Chief Complaint: Seizure Informant: patient and EMS Onset/Context/Timing Onset: Today Context: Sudden Onset Quality: seizure Location: unk Narrative Narrative: Patient has history of seizure disorder, had another seizure today apparently. He will not tell me what he was doing when he had it, then he says that he does not remember. He does not feel like he injured himself, he has abrasions on his face from up relatively recent breakthrough seizure where he was seen here as well. He states he just feels tired now. He states he is compliant with his medications, Tegretol and Keppra and took them this morning prior to this happening. He denies any recent illness. No recent head injury prior to the seizure. [facility] Medical History Hepatitis Hx of fracture of right hip Kidney disease Seizures Smoker Substance abuse Home Medications carbamazepine [Epitol] 200 mg PO TID 30 Days #90 tab 12/26/21 [Rx Last Taken Unknown] levetiracetam [Keppra] 1,000 mg PO BID #60 tab 12/26/21 [Rx Last Taken Unknown] Allergy/AdvReac Type Severity Reaction Status Date / Time Penicillins Allergy Rash Verified 03/19/22 08:45 Sulfa (Sulfonamide Allergy Rash Verified 03/19/22 08:45 Antibiotics) Social History household members: none current occupational exposures/hazards: No history of recent travel: No Smoking Status: Current every day smoker tobacco type: cigarettes alcohol intake: current alcohol intake frequency: a few times a month substance use type: does not use ROS ROS ED Constitutional Constitutional ED: Reports fatigue; Denies chills or fever(s) Eyes Eyes: Denies change in vision or diplopia ENT ENT ED: Denies rhinorrhea or sore throat Cardiovascular Cardiovascular: Denies chest pain or palpitations Respiratory/Chest Respiratory/Chest: Denies cough or dyspnea Gastrointestinal Gastrointestinal: Denies abdominal pain, diarrhea, nausea or vomiting Genitourinary Genitourinary ED: Denies dysuria or hematuria Musculoskeletal Musculoskeletal: Denies back pain or neck pain Integumentary Denies abscess or rash Neurologic Neurologic: Denies headache(s), paresthesias or weakness Psychiatric Psychiatric: Denies anxiety or suicidal thoughts EXAM Physical Exam Const Vital Signs: 03/19/22 08:41 Temperature 98 F Temperature Source Temporal Pulse Rate 109 H Respiratory Rate 20 H Blood Pressure 141/76 H Blood Pressure Mean 97 Pulse Ox 91 Oxygen Delivery Method Room Air Positive well nourished and well developed General Appearance ED: well developed and NAD HEENT Reports moist mucous membranes HEENT Narrative: Normal atraumatic tongue normocephalic and atraumatic Eyes PERRL and EOMs intact bilaterally Neck full ROM and supple Resp normal respiratory effort and clear to auscultation bilaterally Cardio regular rate, regular rhythm and no murmurs GI non-tender and non-distended Auscultation: normoactive bowel sounds Palpation: soft Back/Spine no CVA tenderness General Back: other FROM Extremity normal to inspection General Extremety ED: Negative for edema, pulses abnormal or tenderness General Extremity: Negative for edema or pulses abnormal Neuro oriented x3, CN's II-XII intact bilaterally and no sensory deficits noted Sensorium / Orientation: awake and alert Motor Exam: strength 5/5 throughout Psych cooperative Attitude: withdrawn Activity / Motor Behavior: avoids eye contact Mood & Affect: flat affect Skin no rashes or lesions noted and no wounds MDM MDM MDM Narrative Medical decision making narrative: Patient states he does not want to be here. I advised that he allow me to check a carbamazepine level to see if he is subtherapeutic or therapeutic, as this would help decide the management that I would recommend. He refuses and wants to leave AMA so he was allowed to leave AMA, he understands the risk of recurrent seizures and the complications of them. I did discuss following up with neurology since he does not see a neurologist and he was given that information regardless of the fact that he decided to leave AGAINST MEDICAL ADVICE. He is ambulatory and clinically stable, neurologically intact. Discharge Plan Triage Chief Complaint: Seizure ED Provider: Ronn Philippe Dx/Rx/DC Orders Clinical Impression: Seizure disorder, Breakthrough seizure Instructions: ED Seizure, Recurrent (Adult) Prescriptions: No Action carbamazepine [Epitol] 200 mg tablet 200 mg PO TID 30 Days Qty: 90 RF: 0 levetiracetam [Keppra] 1,000 mg tablet 1,000 mg PO BID Qty: 60 RF: 0 [facility] Referrals: Ritesh Salazar MD [STAFF PHYSICIAN] - (Call for follow-up appointment with neurology, or you may follow-up at your usual clinic) [facility] Diaz [Primary Care Provider] - Disposition Disposition: Against Medical Advice
== END 2022-03-19 09:22 | disposition left against medical advice (07) ==
PROVIDERS: Emergency Provider Emergency Medicine; Visit Provider Emergency Medicine
DX: G40.909 Epilepsy, unspecified, not intractable, without status epilepticus (principal); F17.210 Nicotine dependence, cigarettes, uncomplicated
CPT/HCPCS: 99284

== ENCOUNTER → 2022-03-31 | Outpatient (CLI) | payer MEDICAID, SELFPAY ==
[2022-03-31 13:35] LABS: Absolute Lymphocyte Count 2.92 X10^3/uL (0.83-4.51); Basophil# 0.06 X10^3/uL; Eosinophil# 0.37 X10^3/uL; Eosinophils% 5.9 % (0-5); Hematocrit 41.2 % (40-54); Hemoglobin 13.6 g/dL (13.0-16.5); Lymphocyte # 2.92 X10^3/ul (0.83-4.51); Lymphocyte % 46.9 % (19-41); Mean Corpuscular Hgb 30.6 pg (27.0-32.0); Mean Corpuscular Volume 92.8 fL (80-94); Mean Platelet Vol. 9.2 fl (6.2-12.0); Monocyte# 0.89 X10^3/uL; Monocyte% 14.3 % (0-10); NRBC Flagged by Analyzer 0 % (0-5); Neutrophil # 1.98 X10^3/uL (2.7-7.7); Neutrophil % 31.7 % (47-70); POSITIVE MORPHOLOGY YES; Platelet Count 345 K/mm3 (150-450); RBC Distribution Width SD 47.7 fl (35.1-43.9); Red Blood Count 4.44 M/mm3 (4.6-6.2); White Blood Count 6.2 K/mm3 (4.4-11.0)
[2022-03-31 13:56] LABS: Hemoglobin A1c 5.8 % (3.8-5.6)
[2022-03-31 14:08] LABS: ALB/GLOB Ratio 1.1 RATIO (0.9-2.4); AST(SGOT) 42 U/L (15-37); Alanine Aminotransfer ALT/SGPT 54 U/L (16-61); Albumin, Serum 3.9 g/dL (3.2-5.0); Alkaline Phosphatase 100 U/L (45-117); BUN 14 mg/dL (7-18); BUN/Creat Ratio 15.4 RATIO (10-20); Calcium,Total 9.2 mg/dL (8.5-10.1); Cholesterol 167 mg/dL (200); Creatinine, Serum 0.91 mg/dL (0.70-1.30); EST Glomerular Filtration Rate 96 mL/min (>60); Est Glom Filt Rate - Afr Amer 116 mL/min (>60); Globulin 3.5 g/dL (2.2-4.2); Glucose 101 mg/dL (74-106); Potassium 4.3 mmol/L (3.5-5.1); Protein, Total 7.4 g/dL (6.4-8.2); Sodium Level 140 mmol/L (136-145); Triglycerides 119 mg/dL
[2022-03-31 14:09] LABS: Anion Gap 3 (5-15); Chloride 104 mmol/L (98-107); High Density Lipoprotein 53 mg/dL; Very Low Density Lipoprotein 24 mg/dL (5-40)
[2022-03-31 14:12] LABS: Carbamazepine (Tegretol) 4.3 ug/mL (4.0-12.0)
[2022-03-31 14:24] LABS: Differential Indicated SCAN CRITERIA MET
[2022-03-31 14:48] LABS: Platelet Estimate ADEQUATE (ADEQ); Red Cell Morphology NORM C+C NORMAL (NORM C&C)
[2022-03-31 14:49] LABS: Reactive Lymphocyte 1+
[2022-04-08 19:23] LABS: HCV log 10 6.843 (.); KEPPRA (LEVETIRACETAM) 15.1 ug/mL (10.0-40.0)
== END | disposition home or self-care (01) ==
LOC: LAB 12:59
DX: R56.9 Unspecified convulsions (principal); B18.2 Chronic viral hepatitis C; Z83.3 Family history of diabetes mellitus; Z13.220 Encounter for screening for lipoid disorders
CPT/HCPCS: 36415; 80053; 80061; 80156; 80177; 83036; 85025; 87522

== ENCOUNTER 2022-04-16 08:42 | Emergency (ER) | payer MEDICAID, SELFPAY ==
[2022-04-16 08:42] VITALS: BP 152/77; PULSE 96; RESP 15; TEMP 36.6; O2SAT 97; BMI 27.1
--- NOTE | 2022-04-16 08:54 | EDS_ITS ---
HPI History of Present Illness Chief Complaint: Seizure Informant: EMS Onset/Context/Timing Onset: Today Context: Sudden Onset Timing: Intermittent Quality: Tonic-clonic Location: Generalized Narrative Narrative: Patient presents after having a seizure that occurred today. Patient has a history of seizures. Patient was seen here approximately 1 month ago for breakthrough seizure. Patient is still postictal and is a poor historian. Patient has an abrasion across the bridge of his nose and a superficial lacerati on over his forehead. EMS reports that the seizure was generalized. PFSH PFSH Medical History Hepatitis Hx of fracture of right hip Kidney disease Seizures Smoker Substance abuse Home Medications carbamazepine 200 mg tablet (Epitol) 200 mg PO TID 30 days #90 tabs 12/26/21 [Rx Last Taken Unknown] levetiracetam 1,000 mg tablet (Keppra) 1,000 mg PO BID #60 tabs 12/26/21 [Rx Last Taken Unknown] Allergy/AdvReac Type Severity Reaction Status Date / Time Penicillins Allergy Rash Verified 04/16/22 08:45 Sulfa (Sulfonamide Allergy Rash Verified 04/16/22 08:45 Antibiotics) Social History household members: none current occupational exposures/hazards: No history of recent travel: No Smoking Status: Current every day smoker tobacco type: cigarettes alcohol intake: current alcohol intake frequency: a few times a month substance use type: does not use ROS ROS ED Review of Systems ROS Unobtainable: due to mental status EXAM Physical Exam Const Vital Signs: 04/16/22 08:42 04/16/22 12:46 Temperature 97.8 F Temperature Source Temporal Pulse Rate 96 48 L Respiratory Rate 15 18 Blood Pressure 152/77 H 149/89 H Blood Pressure Mean 102 109 Pulse Ox 97 100 Oxygen Delivery Method Room Air Room Air Positive well nourished and well developed General Appearance ED: well developed and NAD HEENT Reports moist mucous membranes HEENT Narrative: There is a superficial abrasion over the bridge of the nose. There is no active bleeding. There is a superficial linear laceration in the midline of the forehead that is approximately 3 cm in length. There is no gapping of the wound margins. There is no bleeding from the laceration. There is no bony crepitance or step-off. There is no epistaxis noted. Neck supple and no JVD Resp normal respiratory effort and clear to auscultation bilaterally Cardio regular rate and regular rhythm GI normal to inspection, nondistended, normoactive bowel sounds Neuro Neuro Narrative: Patient is postictal and is somnolent on exam. Patient withdraws to painful stimuli. Patient is nonverbal. Patient does not follow commands. Skin no rashes or lesions noted MDM MDM MDM Narrative Medical decision making narrative: Seizure precautions were maintained. Bacitracin dressings were applied to the wounds. Review of the old chart shows that patient had a tetanus immunization approximately 2 years ago. Patient was given IV fluids. Tegretol level was ord ered. CBC and comprehensive metabolic profile were ordered. Lab Data Labs: Laboratory Results - last 24 hr 04/16/22 04/16/22 04/16/22 09:15 09:15 09:15 WBC 6.5 RBC 4.50 L Hgb 13.7 Hct 42.2 MCV 93.8 MCH 30.4 MCHC 32.5 RDW Std Deviation 48.0 H RDW Coeff of Sunshine 14.1 Plt Count 337 MPV 9.1 Immature Gran % (Auto) 0.300 Neut % (Auto) 46.1 L Lymph % (Auto) 30.4 J[place]uld % (Auto) 15.1 H Eos % (Auto) 7.3 H Baso % (Auto) 0.8 Absolute Neuts (auto) 3.0 Absolute Lymphs (auto) 1.99 Nucleated RBC % 0 Sodium 141 Potassium 4.3 Chloride 109 H Carbon Dioxide 25.0 Anion Gap 7 BUN 19 H Creatinine 1.08 Estim Creat Clear Calc 80.75 Est GFR (MDRD) Af Amer 95 Est GFR (MDRD) Non-Af 78 BUN/Creatinine Ratio 17.6 Glucose 90 Calcium 9.0 Total Bilirubin 0.30 AST 44 H ALT 51 Alkaline Phosphatase 94 Total Protein 6.8 Albumin 3.6 Globulin 3.2 Albumin/Globulin Ratio 1.1 Carbamazepine 1.0 L Radiography Diagnostic Testing: Clinical Impression(s) from Imaging Studies Brain CT 04/16/22 10:24 IMPRESSION: Normal unenhanced CT scan of the brain. Electronically Signed: Ilan Viera MD at 11:12 EDT , Treatment and Re-Evaluation Narrative: CBC and comprehensive metabolic profile were obtained and were essentially within normal limits. Tegretol level was subtherapeutic at 1.0. CT scan of the brain was obtained. There is no acute intracranial abnormality noted. This was interpreted by the radiologist and reviewed by myself. Patient was given a dose of Keppra and Tegretol here. Patient became more awake and alert. Patient was oriented x3 on discharge. Patient was instructed to follow-up with his primary care physician in 5 to 7 days. Patient understood and was agreeable with the plan. All questions were answered. Discharge Plan Triage Chief Complaint: Seizure ED Provider: Rajendra Patel Dx/Rx/DC Orders Clinical Impression: Seizure disorder, Breakthrough seizure Instructions: ED Seizure, Recurrent (Adult) Prescriptions: No Action carbamazepine [Epitol] 200 mg tablet 200 mg PO TID 30 Days Qty: 90 0RF levetiracetam [Keppra] 1,000 mg tablet 1,000 mg PO BID Qty: 60 0RF Primary Care Provider: [facility]clain [facility] - 3-5 Days Disposition Disposition: Home, Self Care
[2022-04-16] MEDS: 0.9% Normal Saline 1,000 ML 1000 ML IV (09:20)
[2022-04-16 09:21] LABS: Absolute Lymphocyte Count 1.99 X10^3/uL (0.83-4.51); Basophil# 0.05 X10^3/uL; Basophil% 0.8 % (0-1); Eosinophil# 0.48 X10^3/uL; Eosinophils% 7.3 % (0-5); Hematocrit 42.2 % (40-54); Hemoglobin 13.7 g/dL (13.0-16.5); Lymphocyte # 1.99 X10^3/ul (0.83-4.51); Lymphocyte % 30.4 % (19-41); Mean Corp Hgb Conc 32.5 g/dL (32-36); Mean Corpuscular Hgb 30.4 pg (27.0-32.0); Mean Corpuscular Volume 93.8 fL (80-94); Mean Platelet Vol. 9.1 fl (6.2-12.0); Monocyte# 0.99 X10^3/uL; Monocyte% 15.1 % (0-10); NRBC Flagged by Analyzer 0 % (0-5); Neutrophil # 3.01 X10^3/uL (2.7-7.7); Neutrophil % 46.1 % (47-70); Platelet Count 337 K/mm3 (150-450); RBC Distribution Width CV 14.1 % (11.6-14.6); White Blood Count 6.5 K/mm3 (4.4-11.0)
[2022-04-16 09:37] LABS: ALB/GLOB Ratio 1.1 RATIO (0.9-2.4); AST(SGOT) 44 U/L (15-37); Alanine Aminotransfer ALT/SGPT 51 U/L (16-61); Albumin, Serum 3.6 g/dL (3.2-5.0); Alkaline Phosphatase 94 U/L (45-117); Anion Gap 7 (5-15); BUN 19 mg/dL (7-18); BUN/Creat Ratio 17.6 RATIO (10-20); Chloride 109 mmol/L (98-107); Creatinine, Serum 1.08 mg/dL (0.70-1.30); EST Glomerular Filtration Rate 78 mL/min (>60); Est Glom Filt Rate - Afr Amer 95 mL/min (>60); Estimated Creatinine Clearance 80.75 ml/min; Globulin 3.2 g/dL (2.2-4.2); Glucose 90 mg/dL (74-106); Potassium 4.3 mmol/L (3.5-5.1); Protein, Total 6.8 g/dL (6.4-8.2); Sodium Level 141 mmol/L (136-145)
--- NOTE | 2022-04-16 10:24 | CT_ITS ---
STUDY: CT BRAIN WITHOUT CONTRAST REASON FOR EXAM: Male, 46 years old. Seizure RADIATION DOSAGE (If Supplied By Facility): CTDIvol = ( 47.06 ) mGy, DLP = ( 837.39 ) mGycm TECHNIQUE: Transaxial CT imaging of the brain was performed without administration of intravenous contrast material. Individualized dose optimization techniques were used for this CT. COMPARISON: Comparison is made with prior study dated 03/17/2022. FINDINGS: Normal soft tissue structures. Normal calvarium. Normal size ventricles and extra-axial spaces for the patient''s age. Normal white matter tracts of the cerebral hemispheres. Normal basal ganglia and thalami. Normal brainstem. Normal cerebellum. There is no intracranial hemorrhage. There are no findings of an acute ischemic infarction. Normal visualized paranasal sinuses. CT/Brain/Head without Contrast IMPRESSION: Normal unenhanced CT scan of the brain. Electronically Signed: Ilan Viera MD at 11:12 EDT ,
[2022-04-16] MEDS: carBAMazepine 200 MG Tablet PO (10:31)
[2022-04-16] MEDS: levETIRAcetam IV 1,000 MG/100 ML BAG 400 MG IV (10:31)
[2022-04-16 12:46] VITALS: BP 149/89; PULSE 48; RESP 18; O2SAT 100
[2022-04-16 13:34] VITALS: BP 178/88
== END 2022-04-16 13:35 | disposition home or self-care (01) ==
PROVIDERS: Emergency Provider Emergency Medicine; Visit Provider Emergency Medicine
DX: G40.909 Epilepsy, unspecified, not intractable, without status epilepticus (principal); F17.210 Nicotine dependence, cigarettes, uncomplicated; S01.81XA Laceration without foreign body of other part of head, initial encounter; X58.XXXA Exposure to other specified factors, initial encounter
CPT/HCPCS: 70450; 80053; 80156; 85025; 96361; 96365; 99285; J7030; J7050; A4216

== ENCOUNTER 2022-04-23 07:55 | Emergency (ER) | payer MEDICAID, SELFPAY ==
[2022-04-23 07:56] VITALS: BP 126/77; PULSE 95; RESP 18; TEMP 36.3; O2SAT 95; BMI 27.8
--- NOTE | 2022-04-23 07:59 | CT_ITS ---
STUDY: CT BRAIN WITHOUT CONTRAST REASON FOR EXAM: Male, 46 years old. Seizure, head injury RADIATION DOSAGE (If Supplied By Facility): CTDIvol = ( 44.99 ) mGy, DLP = ( 745.49 ) mGycm TECHNIQUE: Transaxial CT imaging of the brain was performed without administration of intravenous contrast material. Individualized dose optimization techniques were used for this CT. COMPARISON: Comparison is made with prior study dated 04/16/2022. FINDINGS: Normal soft tissue structures. Normal calvarium. Normal size ventricles and extra-axial spaces for the patient''s age. Normal white matter tracts of the cerebral hemispheres. Normal basal ganglia and thalami. Normal brainstem. Normal cerebellum. There is no intracranial hemorrhage. There are no findings of an acute ischemic infarction. Normal visualized paranasal sinuses. CT/Brain/Head without Contrast IMPRESSION: Normal unenhanced CT scan of the brain. Electronically Signed: Ilan Viera MD at 8:37 EDT ,
--- NOTE | 2022-04-23 07:59 | EX.ED.DYSGE1 ---
HPI History of Present Illness Chief Complaint: Seizure Detail of Chief Complaint: Seizure prior to the emergency department Informant: EMS Narrative Narrative: Patient presents to the ER via EMS from a cheondoism. Bystanders called EMS being that patient had a seizure lasted about a minute. Patient did hit his head. Patient postictal on arrival and cannot get history at this time. Patient has known seizure history. Patient takes carbamazepine and Keppra. Unknown if patient has been compliant with meds. [facility] Medical History Hepatitis Hx of fracture of right hip Kidney disease Seizures Smoker Substance abuse Home Medications carbamazepine 200 mg tablet (Epitol) 200 mg PO TID 30 days #90 tabs 12/26/21 [Rx Last Taken Unknown] levetiracetam 1,000 mg tablet (Keppra) 1,000 mg PO BID #60 tabs 12/26/21 [Rx Last Taken Unknown] carbamazepine 200 mg tablet 200 mg PO TID #90 tabs 04/23/22 [Rx Last Taken Unknown] levetiracetam 1,000 mg tablet (Keppra) 1,000 mg PO BID #60 tabs 04/23/22 [Rx Last Taken Unknown] Allergy/AdvReac Type Severity Reaction Status Date / Time Penicillins Allergy Rash Verified 04/23/22 08:01 Sulfa (Sulfonamide Allergy Rash Verified 04/23/22 08:01 Antibiotics) Social History household members: none current occupational exposures/hazards: No history of recent travel: No Smoking Status: Current every day smoker tobacco type: cigarettes alcohol intake: current alcohol intake frequency: a few times a month substance use type: does not use ROS ROS ED Review of Systems ROS Unobtainable: due to mental status; Denies due to encephalopathy, due to endotracheal tube, due to mental condition or other EXAM Physical Exam Narrative Exam Narrative: Patient awake and moves all extremities. Const Vital Signs: 04/23/22 07:56 04/23/22 08:52 04/23/22 09:12 Temperature 97.3 F L Temperature Source Temporal Pulse Rate 95 81 82 Respiratory Rate 18 18 18 Blood Pressure 126/77 H 125/69 H 124/72 H Blood Pressure Mean 93 87 89 Pulse Ox 95 96 95 Oxygen Delivery Method Room Air Room Air Room Air 07/14/22 10:03 Temperature Temperature Source Pulse Rate 76 Respiratory Rate 18 Blood Pressure 129/64 H Blood Pressure Mean 85 Pulse Ox 96 Oxygen Delivery Method Room Air Positive well nourished and well developed General Appearance ED: well developed and NAD HEENT Reports TM's clear and moist mucous membranes HEENT Narrative: Patient has a 2 cm vertical laceration to the frontal scalp without any active bleeding and no gaping noticed for the wound. No bony step-offs. normocephalic; Negative for trauma or tenderness Tympanic Membrane ED: Yes TM's clear Eyes PERRL and EOMs intact bilaterally General Eye ED: Negative for pale conjunctiva or scleral icterus Neck no lymphadenopathy, supple and no JVD General: Negative for tenderness Chest Wall inspection of chest normal and palpation of chest normal Chest: Negative for tenderness Resp normal respiratory effort and clear to auscultation bilaterally Effort and Inspection: Negative for respiratory distress or pain with movement Auscultation: Negative for rhonchi, wheezes or diminished lung sounds Cardio regular rate, regular rhythm, S1 normal heart sound, S2 normal heart sound and no murmurs Peripheral Pulses: pulses 2+ throughout GI normal to inspection, nondistended, normoactive bowel sounds, soft to palpation, non-tender, non-distended and no masses Back/Spine no CVA tenderness and no thoracic nor lumbar tenderness Extremity normal to inspection General Extremety ED: Negative for edema General Extremity: Negative for edema Neuro oriented x3, CN's II-XII intact bilaterally, no sensory deficits noted and gait normal Sensorium / Orientation: awake, alert, oriented to person, oriented to place and oriented to time Motor Exam: strength 5/5 throughout and strength abnormal Psych mental status grossly normal Skin no rashes or lesions noted and no wounds MDM MDM MDM Narrative Medical decision making narrative: IV line was established on arrival. Patient is CT scan of the brain without contrast that was unremarkable. His wounds were cleansed and dressed. Laceration on his forehead is superficial and do not feel needs any repair. Patient will be given a tetanus booster. He was given a dose of Tegretol as his level was low as well as a dose of Keppra. Now he tells me that he thought he had his medicines but does not feel like he has them since last night. He would like me to write him a prescription for them and send them to his pharmacy. Lab Data Attestation: I reviewed the patient's lab results. Labs: Laboratory Results - last 24 hr 04/23/22 04/23/22 04/23/22 08:00 08:00 08:25 WBC 8.7 RBC 4.34 L Hgb 13.4 Hct 41.2 MCV 94.9 H MCH 30.9 MCHC 32.5 RDW Std Deviation 50.7 H RDW Coeff of Sunshine 14.5 Plt Count 313 MPV 8.9 Immature Gran % (Auto) 0.100 Neut % (Auto) 34.1 L Lymph % (Auto) 43.2 H [place] % (Auto) 14.1 H Eos % (Auto) 7.8 H Baso % (Auto) 0.7 Absolute Neuts (auto) 3.0 Absolute Lymphs (auto) 3.78 Nucleated RBC % 0 Sodium 139 Potassium 4.1 Chloride 105 Carbon Dioxide 21.0 Anion Gap 13 BUN 28 H Creatinine 1.23 Estim Creat Clear Calc 70.91 Est GFR (MDRD) Af Amer 82 Est GFR (MDRD) Non-Af 68 BUN/Creatinine Ratio 22.8 H Glucose 104 Calcium 8.9 Carbamazepine < 0.5 L Radiography Diagnostic Testing: Clinical Impression(s) from Imaging Studies Brain CT 04/23/22 07:59 IMPRESSION: Normal unenhanced CT scan of the brain. Electronically Signed: Ilan Viera MD at 8:37 EDT , Discharge Plan Triage Chief Complaint: Seizure ED Provider: Vivian Calle Dx/Rx/DC Orders Clinical Impression: Seizure, Closed head injury, Forehead laceration Instructions: ED Seizure, Recurrent (Adult) Prescriptions: New carbamazepine 200 mg tablet 200 mg PO TID Qty: 90 0RF levetiracetam [Keppra] 1,000 mg tablet 1,000 mg PO BID Qty: 60 0RF No Action carbamazepine [Epitol] 200 mg tablet 200 mg PO TID 30 Days Qty: 90 0RF levetiracetam [Keppra] 1,000 mg tablet 1,000 mg PO BID Qty: 60 0RF Primary Care Provider: Medical Estelle Mclain [facility] - 3-5 Days Disposition Disposition: Home, Self Care
--- NOTE | 2022-04-23 08:04 | ED.RN ---
Pt postical. Small lac and abrasion to forehead and top of his head.
[2022-04-23 08:07] LABS: Absolute Lymphocyte Count 3.78 X10^3/uL (0.83-4.51); Basophil# 0.06 X10^3/uL; Basophil% 0.7 % (0-1); Eosinophil# 0.68 X10^3/uL; Eosinophils% 7.8 % (0-5); Hematocrit 41.2 % (40-54); Hemoglobin 13.4 g/dL (13.0-16.5); Lymphocyte # 3.78 X10^3/ul (0.83-4.51); Lymphocyte % 43.2 % (19-41); Mean Corp Hgb Conc 32.5 g/dL (32-36); Mean Corpuscular Hgb 30.9 pg (27.0-32.0); Mean Corpuscular Volume 94.9 fL (80-94); Mean Platelet Vol. 8.9 fl (6.2-12.0); Monocyte# 1.23 X10^3/uL; Monocyte% 14.1 % (0-10); NRBC Flagged by Analyzer 0 % (0-5); Neutrophil # 2.98 X10^3/uL (2.7-7.7); Neutrophil % 34.1 % (47-70); Platelet Count 313 K/mm3 (150-450); RBC Distribution Width CV 14.5 % (11.6-14.6); RBC Distribution Width SD 50.7 fl (35.1-43.9); Red Blood Count 4.34 M/mm3 (4.6-6.2); White Blood Count 8.7 K/mm3 (4.4-11.0)
[2022-04-23 08:18] LABS: Anion Gap 13 (5-15); BUN 28 mg/dL (7-18); BUN/Creat Ratio 22.8 RATIO (10-20); Calcium,Total 8.9 mg/dL (8.5-10.1); Chloride 105 mmol/L (98-107); Creatinine, Serum 1.23 mg/dL (0.70-1.30); EST Glomerular Filtration Rate 68 mL/min (>60); Est Glom Filt Rate - Afr Amer 82 mL/min (>60); Estimated Creatinine Clearance 70.91 ml/min; Glucose 104 mg/dL (74-106); Potassium 4.1 mmol/L (3.5-5.1); Sodium Level 139 mmol/L (136-145)
[2022-04-23 08:47] LABS: Carbamazepine (Tegretol) < 0.5 ug/mL (4.0-12.0)
[2022-04-23 08:52] VITALS: BP 125/69; PULSE 81; RESP 18; O2SAT 96
[2022-04-23 09:12] VITALS: BP 124/72; PULSE 82; RESP 18; O2SAT 95
[2022-04-23 10:03] VITALS: BP 129/64; PULSE 76; RESP 18; O2SAT 96
[2022-04-23] MEDS: carBAMazepine 200 MG Tablet PO (10:18)
[2022-04-23] MEDS: levETIRAcetam 1,000 MG Tablet 1000 MG PO (10:55)
[2022-04-23 10:57] VITALS: BP 124/83; PULSE 67; RESP 18
== END 2022-04-23 11:11 | disposition home or self-care (01) ==
PROVIDERS: Emergency Provider Emergency Medicine; Visit Provider Emergency Medicine
DX: G40.909 Epilepsy, unspecified, not intractable, without status epilepticus (principal); F17.210 Nicotine dependence, cigarettes, uncomplicated; S01.81XA Laceration without foreign body of other part of head, initial encounter; Z23 Encounter for immunization; W22.8XXA Striking against or struck by other objects, initial encounter
CPT/HCPCS: 90715; 36415; 70450; 80048; 80156; 85025; 99285; A4216

== ENCOUNTER 2022-04-26 21:55 | Emergency (ER) | payer MEDICAID, SELFPAY ==
[2022-04-26 21:57] VITALS: BP 140/100; PULSE 94; RESP 16; TEMP 35.8; O2SAT 96; BMI 27.6
--- NOTE | 2022-04-26 22:27 | CT_ITS ---
STUDY: CT BRAIN WITHOUT CONTRAST ENHANCEMENT OF 2314 HOURS ON 04/26/2022 REASON FOR EXAM: 46-year-old male with head injury. RADIATION DOSAGE (If Supplied By Facility): CTDIvol = ( 44.99 ) mGy, DLP = ( 846.73 ) mGycm TECHNIQUE: Transaxial CT imaging of the brain was performed without administration of intravenous contrast material. COMPARISON: 04/23/2022., 11/04/2020. FINDINGS: No midline shift. Again, the left lateral ventricle is smaller than the right, unchanged since previous study of 11/04/2020. This most likely represents a normal variant. There is no evidence of a subdural, epidural, or intracerebral hematoma, hemorrhage or contusion. There is no distinct evidence of intracranial mass lesions, hemorrhages or hematomas. Normal posterior fossa and brainstem. Normal sella and pituitary. Normal calvarium without linear or depressed skull fractures. Normal paranasal sinuses. CT/Brain/Head without Contrast IMPRESSION: 1. Again, the left lateral ventricle is smaller than the right, unchanged since the previous study 11/04/2020, most likely representing a normal variant. 2. No subdural, epidural, or intracerebral hematoma, hemorrhage or contusion. 3. No other intracranial pathology. 4. Normal calvarium without linear or depressed skull fractures. 5. Normal paranasal sinuses. Electronically Signed: Luis M Pickens MD at 0:49 EDT ,
[2022-04-26 22:51] LABS: Absolute Lymphocyte Count 2.32 X10^3/uL (0.83-4.51); Absolute Neutrophil Count 3.9 X10^3/uL (2.0-7.7); Basophil# 0.05 X10^3/uL; Basophil% 0.7 % (0-1); Eosinophil# 0.29 X10^3/uL; Eosinophils% 3.9 % (0-5); Hematocrit 42.5 % (40-54); Hemoglobin 13.9 g/dL (13.0-16.5); Lymphocyte # 2.32 X10^3/ul (0.83-4.51); Lymphocyte % 30.8 % (19-41); Mean Corp Hgb Conc 32.7 g/dL (32-36); Mean Corpuscular Hgb 30.3 pg (27.0-32.0); Mean Corpuscular Volume 92.8 fL (80-94); Monocyte# 0.93 X10^3/uL; Monocyte% 12.4 % (0-10); NRBC Flagged by Analyzer 0 % (0-5); Neutrophil # 3.93 X10^3/uL (2.7-7.7); Neutrophil % 52.1 % (47-70); Platelet Count 335 K/mm3 (150-450); RBC Distribution Width CV 14.1 % (11.6-14.6); RBC Distribution Width SD 47.7 fl (35.1-43.9); Red Blood Count 4.58 M/mm3 (4.6-6.2); White Blood Count 7.5 K/mm3 (4.4-11.0)
--- NOTE | 2022-04-26 23:00 | RAD_ITS ---
STUDY: RIGHT KNEE X-RAY SERIES OF 2310 HOURS ON 04/26/2022 REASON FOR EXAM: 46-year-old male with right knee pain. TECHNIQUE: 3 view(s) of the knee. COMPARISON: None. FINDINGS: No fractures or dislocations. No significant arthritic or degenerative changes. Normal, balanced a joint space. Normal patella. Normal surrounding soft tissues. RAD/Knee 3 Views IMPRESSION: 1. Normal examination of the right knee. 2. No fractures or dislocations. 3. No arthritic or degenerative changes. 4. Balanced knee joint. Electronically Signed: Luis M Pickens MD at 23:38 EDT ,
--- NOTE | 2022-04-26 23:01 | EX.ED.DYSGE1 ---
HPI History of Present Illness Chief Complaint: Seizure Narrative Narrative: Patient is a 46-year-old male with past medical history of seizure disorder. He states that he is to take Keppra and Trileptal however he has been out of these medications. He cannot tell me how long he has not had them. He states that today he must of had a seizure because he was standing up and then the next thing he remembers is waking up in the hospital. He reports pain in his right knee. He denies any alcohol or illicit drug use. However with the seizure activity occurring he was brought in for evaluation. [facility] Medical History Hepatitis Hx of fracture of right hip Kidney disease Seizures Smoker Substance abuse Home Medications carbamazepine 200 mg tablet (Epitol) 200 mg PO TID 30 days #90 tabs 12/26/21 [Rx Last Taken Unknown] levetiracetam 1,000 mg tablet (Keppra) 1,000 mg PO BID #60 tabs 12/26/21 [Rx Last Taken Unknown] carbamazepine 200 mg tablet 200 mg PO TID #90 tabs 04/23/22 [Rx Last Taken Unknown] levetiracetam 1,000 mg tablet (Keppra) 1,000 mg PO BID #60 tabs 04/23/22 [Rx Last Taken Unknown] carbamazepine 200 mg tablet 200 mg PO TID 30 days #90 tabs 04/27/22 [Rx Last Taken Unknown] levetiracetam 1,000 mg tablet (Keppra) 1,000 mg PO BID 30 days #60 tabs 04/27/22 [Rx Last Taken Unknown] Allergy/AdvReac Type Severity Reaction Status Date / Time Penicillins Allergy Rash Verified 04/26/22 22:00 Sulfa (Sulfonamide Allergy Rash Verified 04/26/22 22:00 Antibiotics) Social History household members: none current occupational exposures/hazards: No history of recent travel: No Smoking Status: Current every day smoker tobacco type: cigarettes alcohol intake: current alcohol intake frequency: a few times a month substance use type: does not use ROS ROS ED Constitutional Constitutional ED: Denies chills or fever(s) Eyes Eyes: Denies blurry vision or change in vision ENT ENT ED: Denies sore throat Cardiovascular Cardiovascular: Denies chest pain Respiratory/Chest Respiratory/Chest: Denies cough or dyspnea Gastrointestinal Gastrointestinal: Denies abdominal pain, diarrhea, nausea or vomiting Genitourinary Genitourinary ED: Denies dysuria Musculoskeletal Musculoskeletal: Reports other Details: Positive right knee pain ; Denies myalgias Integumentary Reports Abrasions; Denies rash Neurologic Neurologic: Reports other Details: Positive seizure ; Denies headache(s) Hematologic/Lymphatic Hematologic/Lymphatic: Denies easy bleeding or easy bruising EXAM Physical Exam Const Vital Signs: 04/26/22 21:57 04/26/22 23:27 04/27/22 00:21 Temperature 96.5 F L Temperature Source Temporal Pulse Rate 94 70 74 Respiratory Rate 16 15 15 Blood Pressure 140/100 H 137/95 H 128/80 H Blood Pressure Mean 113 109 96 Pulse Ox 96 97 97 Oxygen Delivery Method Room Air Room Air Room Air 04/27/22 01:52 Temperature Temperature Source Pulse Rate 78 Respiratory Rate 15 Blood Pressure 122/69 H Blood Pressure Mean Pulse Ox 97 Oxygen Delivery Method Positive well nourished and well developed General Appearance ED: well developed HEENT Reports moist mucous membranes HEENT Narrative: Patient has superficial abrasions to the middle portion of his parietal scalp as well as the bridge of the nose. Otherwise there are no signs of depressed or basilar skull fracture. No septal hematoma noted. No tongue or cheek biting noted but patient is edentulous Eyes PERRL and EOMs intact bilaterally Eyes Narrative: No hyphema noted Neck supple Neck Narrative: No bony deformity or step-off of the cervical spine no midline pain on palpation Chest Wall palpation of chest normal Resp normal respiratory effort and clear to auscultation bilaterally Cardio regular rate and regular rhythm GI non-tender and non-distended Auscultation: normoactive bowel sounds Palpation: soft Back/Spine Back/Spine Narrative: No bony deformity or step-off of the cervical thoracic or lumbar spine no midline pain with palpation Extremity Extremity Narrative: Patient reports pain to the right knee however there is no overlying erythema warmth or abrasions or soft tissue swelling noted. No ligamentous or tendon laxity. Remainder the exam is normal Neuro oriented x3 and CN's II-XII intact bilaterally Sensorium / Orientation: alert Psych Psych Narrative: Patient has a flat affect Skin no rashes or lesions noted Skin Narrative: Superficial abrasions to the face as documented above MDM MDM MDM Narrative Medical decision making narrative: Patient presented to the ER awake and alert with no signs of seizure activity. He does have a history of epilepsy and states he is not been taking his medications. Therefore this time he does have a reason for developing a breakthrough seizure. As he had multiple areas of abrasions to his face/head I did elect to perform a head CT and as he reported right knee pain and x-ray of that was obtained. Basic blood work was also ordered to check for possible causes of breakthrough seizures such as hyponatremia. Labs revealed no clinically significant finding and imaging studies revealed no acute traumatic issues. He was loaded with Keppra in the ER and had no further seizure activity. Therefore at this time I do not feel there is need for further work-up or admission and patient can be discharged home with prescriptions to restart his seizure medications. Lab Data Attestation: I reviewed the patient's lab results. Labs: Laboratory Results - last 24 hr 04/26/22 04/26/22 22:45 22:45 WBC 7.5 RBC 4.58 L Hgb 13.9 Hct 42.5 MCV 92.8 MCH 30.3 MCHC 32.7 RDW Std Deviation 47.7 H RDW Coeff of Sunshine 14.1 Plt Count 335 MPV 9.0 Immature Gran % (Auto) 0.100 Neut % (Auto) 52.1 Lymph % (Auto) 30.8 [place] % (Auto) 12.4 H Eos % (Auto) 3.9 Baso % (Auto) 0.7 Absolute Neuts (auto) 3.9 Absolute Lymphs (auto) 2.32 Nucleated RBC % 0 Sodium 137 Potassium 3.6 Chloride 104 Carbon Dioxide 28.0 Anion Gap 5 BUN 18 Creatinine 0.97 Estim Creat Clear Calc 89.91 Est GFR (MDRD) Af Amer 108 Est GFR (MDRD) Non-Af 89 BUN/Creatinine Ratio 18.6 Glucose 91 Calcium 9.2 Radiography Diagnostic Testing: Clinical Impression(s) from Imaging Studies Brain CT 04/26/22 22:27 IMPRESSION: 1. Again, the left lateral ventricle is smaller than the right, unchanged since the previous study 11/04/2020, most likely representing a normal variant. 2. No subdural, epidural, or intracerebral hematoma, hemorrhage or contusion. 3. No other intracranial pathology. 4. Normal calvarium without linear or depressed skull fractures. 5. Normal paranasal sinuses. Electronically Signed: Luis M Pickens MD at 0:49 EDT , Knee X-Ray 04/26/22 23:00 IMPRESSION: 1. Normal examination of the right knee. 2. No fractures or dislocations. 3. No arthritic or degenerative changes. 4. Balanced knee joint. Electronically Signed: Luis M Pickens MD at 23:38 EDT , X-ray of the right knee as interpreted by the emergency medicine physician reveals no acute fracture or dislocation or joint effusion Discharge Plan Triage Chief Complaint: Seizure ED Provider: Daniel Partida Dx/Rx/DC Orders Clinical Impression: Breakthrough seizure, Closed head injury Instructions: ED Head Injury (Adult), ED Seizure, Recurrent (Adult) Prescriptions: New levetiracetam [Keppra] 1,000 mg tablet 1,000 mg PO BID 30 Days Qty: 60 0RF carbamazepine 200 mg tablet 200 mg PO TID 30 Days Qty: 90 0RF No Action carbamazepine [Epitol] 200 mg tablet 200 mg PO TID 30 Days Qty: 90 0RF levetiracetam [Keppra] 1,000 mg tablet 1,000 mg PO BID Qty: 60 0RF carbamazepine 200 mg tablet 200 mg PO TID Qty: 90 0RF levetiracetam [Keppra] 1,000 mg tablet 1,000 mg PO BID Qty: 60 0RF Primary Care Provider: [facility] Estelle Mclain Referrals: [facility] Estelle Mclain [Primary Care Provider] - Disposition Disposition: Home, Self Care
[2022-04-26 23:08] LABS: Anion Gap 5 (5-15); BUN 18 mg/dL (7-18); BUN/Creat Ratio 18.6 RATIO (10-20); Calcium,Total 9.2 mg/dL (8.5-10.1); Chloride 104 mmol/L (98-107); Creatinine, Serum 0.97 mg/dL (0.70-1.30); EST Glomerular Filtration Rate 89 mL/min (>60); Est Glom Filt Rate - Afr Amer 108 mL/min (>60); Estimated Creatinine Clearance 89.91 ml/min; Glucose 91 mg/dL (74-106); Potassium 3.6 mmol/L (3.5-5.1); Sodium Level 137 mmol/L (136-145)
[2022-04-26] MEDS: levETIRAcetam IV 1,000 MG/100 ML BAG 400 MG IV (23:23)
[2022-04-26 23:27] VITALS: BP 137/95; PULSE 70; RESP 15; O2SAT 97
[2022-04-27 00:21] VITALS: BP 128/80; PULSE 74; RESP 15; O2SAT 97
[2022-04-27 01:52] VITALS: BP 122/69; PULSE 78; RESP 15; O2SAT 97
[2022-04-27 06:00] VITALS: RESP 15
== END 2022-04-27 06:57 | disposition home or self-care (01) ==
PROVIDERS: Emergency Provider Emergency Medicine; Visit Provider Emergency Medicine
DX: G40.909 Epilepsy, unspecified, not intractable, without status epilepticus (principal); S09.90XA Unspecified injury of head, initial encounter; F17.210 Nicotine dependence, cigarettes, uncomplicated; W19.XXXA Unspecified fall, initial encounter
CPT/HCPCS: 70450; 73562; 80048; 85025; 99285; A4216

== ENCOUNTER 2022-05-27 20:18 | Emergency (ER) | payer MEDICAID, SELFPAY ==
[2022-05-27 20:19] VITALS: BP 142/86; PULSE 97; RESP 27; TEMP 37; O2SAT 97; BMI 28.0
[2022-05-27 20:29] VITALS: BP 142/86
--- NOTE | 2022-05-27 21:14 | EDS_ITS ---
HPI History of Present Illness Chief Complaint: Seizure Narrative Narrative: 46-year-old male with history of epilepsy presenting with breakthrough seizure. He states he thinks he had 2 today. Patient states this is not a regular for him. He states in the heat of the summer sometimes this is worse. He states that he told EMS before coming here that he was fine but they told him they needed to transport him. Patient does not have a headache and he feels well. He states that his baseline. Patient states he has his Tegretol and Keppra. He states he usually sees [facility] and they do come to his breakfast quaker every week. Patient has not missed any doses. [facility] Medical History Hepatitis Hx of fracture of right hip Kidney disease Seizures Smoker Substance abuse Home Medications carbamazepine 200 mg tablet (Epitol) 200 mg PO TID 30 days #90 tabs 12/26/21 [Rx Last Taken Unknown] levetiracetam 1,000 mg tablet (Keppra) 1,000 mg PO BID #60 tabs 12/26/21 [Rx Last Taken Unknown] carbamazepine 200 mg tablet 200 mg PO TID #90 tabs 04/23/22 [Rx Last Taken Unknown] levetiracetam 1,000 mg tablet (Keppra) 1,000 mg PO BID #60 tabs 04/23/22 [Rx Last Taken Unknown] carbamazepine 200 mg tablet 200 mg PO TID 30 days #90 tabs 04/27/22 [Rx Last Taken Unknown] levetiracetam 1,000 mg tablet (Keppra) 1,000 mg PO BID 30 days #60 tabs 04/27/22 [Rx Last Taken Unknown] carbamazepine 200 mg tablet (Epitol) 400 mg PO TID #90 tabs 05/27/22 [Rx Last Taken Unknown] carbamazepine 200 mg tablet (Tegretol) 200 mg PO BID 05/27/22 [History Last Taken Unknown] ibuprofen 600 mg tablet 600 mg PO Q8H PRN PRN pain #60 tabs 05/27/22 [Rx Last Taken Unknown] levetiracetam 1,000 mg tablet (Keppra) 1,000 mg PO BID 30 days #60 tabs 05/27/22 [Rx Last Taken Unknown] Allergy/AdvReac Type Severity Reaction Status Date / Time Penicillins Allergy Rash Verified 05/27/22 20:24 Sulfa (Sulfonamide Allergy Rash Verified 05/27/22 20:24 Antibiotics) Social History household members: none current occupational exposures/hazards: No history of recent travel: No Smoking Status: Current every day smoker tobacco type: cigarettes alcohol intake: current alcohol intake frequency: a few times a month substance use type: does not use ROS ROS ED Constitutional Constitutional ED: Denies chills or fever(s) Eyes Eyes: Denies blurry vision or change in vision ENT ENT ED: Denies rhinorrhea or sore throat Cardiovascular Cardiovascular: Denies chest pain or palpitations Respiratory/Chest Respiratory/Chest: Denies cough or dyspnea Gastrointestinal Gastrointestinal: Denies abdominal pain or constipation Genitourinary Genitourinary ED: Denies dysuria or hematuria Musculoskeletal Musculoskeletal: Denies arthralgias or back pain Integumentary Denies abscess or Abrasions Neurologic Neurologic: Reports other Details: Regular seizure EXAM Physical Exam Const Vital Signs: 05/27/22 20:19 05/27/22 20:29 Temperature 98.6 F Temperature Source Temporal Pulse Rate 97 Respiratory Rate 27 H Blood Pressure 142/86 H 142/86 H Blood Pressure Mean 104 104 Pulse Ox 97 Oxygen Delivery Method Room Air Positive well nourished General Appearance ED: NAD HEENT Reports moist mucous membranes Eyes PERRL and EOMs intact bilaterally Chest Wall inspection of chest normal and palpation of chest normal Resp normal respiratory effort and clear to auscultation bilaterally Cardio regular rate and regular rhythm GI normal to inspection, nondistended, normoactive bowel sounds, non-tender, non- distended, hepatosplenomegaly and no masses Neuro oriented x3 and CN's II-XII intact bilaterally Neuro Narrative: No focal neurologic deficits. Psych mental status grossly normal Psych Narrative: Home Skin no rashes or lesions noted and no wounds MDM MDM MDM Narrative Medical decision making narrative: Patient presenting with a breakthrough seizure. He states he feels fine. He states he did not want to be transported. He currently has no symptoms. He states that he does have his seizure medication at home and has few days left. He states he was going to see the clinic when they came through at his breakfast quaker and get refills. I did refill these for him today. He does request some ibuprofen for his chronic hip pain. Patient will be discharged home in stable condition. Impression: 1. Breakthrough seizure 2. Hip pain Discharge Plan Triage Chief Complaint: Seizure ED Provider: Madhu Andersen Dx/Rx/DC Orders Clinical Impression: Breakthrough seizure Prescriptions: New carbamazepine [Epitol] 200 mg tablet 400 mg PO TID Qty: 90 0RF levetiracetam [Keppra] 1,000 mg tablet 1,000 mg PO BID 30 Days Qty: 60 0RF ibuprofen 600 mg tablet 600 mg PO Q8H PRN PRN (Reason: pain) Qty: 60 0RF No Action carbamazepine [Epitol] 200 mg tablet 200 mg PO TID 30 Days Qty: 90 0RF levetiracetam [Keppra] 1,000 mg tablet 1,000 mg PO BID Qty: 60 0RF carbamazepine 200 mg tablet 200 mg PO TID Qty: 90 0RF levetiracetam [Keppra] 1,000 mg tablet 1,000 mg PO BID Qty: 60 0RF levetiracetam [Keppra] 1,000 mg tablet 1,000 mg PO BID 30 Days Qty: 60 0RF carbamazepine 200 mg tablet 200 mg PO TID 30 Days Qty: 90 0RF carbamazepine [Tegretol] 200 mg Tablet 200 mg PO BID Primary Care Provider: Estelle Dunn Referrals: Estelle Dunn [Primary Care Provider] - Disposition Disposition: Home, Self Care
[2022-05-27 21:26] VITALS: BP 126/83; PULSE 101; RESP 18; O2SAT 96
== END 2022-05-27 21:26 | disposition home or self-care (01) ==
PROVIDERS: Emergency Provider Student in an Organized Health Care Education/Training Program; Visit Provider Student in an Organized Health Care Education/Training Program
DX: R56.9 Unspecified convulsions (principal); F17.210 Nicotine dependence, cigarettes, uncomplicated; G89.29 Other chronic pain; M25.559 Pain in unspecified hip
CPT/HCPCS: 99284

== ENCOUNTER 2022-06-07 09:37 | Emergency (ER) | payer MEDICAID, SELFPAY ==
[2022-06-07 09:39] VITALS: BP 127/85; PULSE 102; RESP 16; TEMP 36.6; O2SAT 97; BMI 24.3
--- NOTE | 2022-06-07 10:23 | EX.ED.DYSGE1 ---
HPI History of Present Illness Chief Complaint: Seizure Narrative Narrative: History and physical is limited secondary to postictal state. According to EMS, patient had seizure this morning. According to the EMR, he has seizure disorder. His last visit was on 05/27/2022, approximately 11 days ago. He had a breakthrough seizure at that time. He reportedly takes Keppra and Tegretol. He had stated previously that he had not missed a dose. [facility] Medical History Hepatitis Hx of fracture of right hip Kidney disease Seizures Smoker Substance abuse Home Medications carbamazepine 200 mg tablet (Epitol) 200 mg PO TID 30 days #90 tabs 12/26/21 [Rx Last Taken Unknown] levetiracetam 1,000 mg tablet (Keppra) 1,000 mg PO BID #60 tabs 12/26/21 [Rx Last Taken Unknown] carbamazepine 200 mg tablet 200 mg PO TID #90 tabs 04/23/22 [Rx Last Taken Unknown] levetiracetam 1,000 mg tablet (Keppra) 1,000 mg PO BID #60 tabs 04/23/22 [Rx Last Taken Unknown] carbamazepine 200 mg tablet 200 mg PO TID 30 days #90 tabs 04/27/22 [Rx Last Taken Unknown] levetiracetam 1,000 mg tablet (Keppra) 1,000 mg PO BID 30 days #60 tabs 04/27/22 [Rx Last Taken Unknown] carbamazepine 200 mg tablet (Epitol) 400 mg PO TID #90 tabs 05/27/22 [Rx Last Taken Unknown] carbamazepine 200 mg tablet (Tegretol) 200 mg PO BID 05/27/22 [History Last Taken Unknown] ibuprofen 600 mg tablet 600 mg PO Q8H PRN PRN pain #60 tabs 05/27/22 [Rx Last Taken Unknown] levetiracetam 1,000 mg tablet (Keppra) 1,000 mg PO BID 30 days #60 tabs 05/27/22 [Rx Last Taken Unknown] Allergy/AdvReac Type Severity Reaction Status Date / Time Penicillins Allergy Rash Verified 06/07/22 09:38 Sulfa (Sulfonamide Allergy Rash Verified 06/07/22 09:38 Antibiotics) Social History household members: none current occupational exposures/hazards: No history of recent travel: No Smoking Status: Current every day smoker tobacco type: cigarettes alcohol intake: current alcohol intake frequency: a few times a month substance use type: does not use ROS ROS ED ROS Narrative Unable to obtain secondary to postictal state. EXAM Physical Exam Narrative Exam Narrative: Afebrile. Vital signs noted. HEENT: Normocephalic. Atraumatic. PERRL, EOMI. Neck soft and supple. No point tenderness or step off. Cardiovascular: Regular rate and rhythm with intermittent tachycardia. No murmurs, rubs, or gallops appreciated. Respiratory: No tachypnea. Lungs clear to auscultation bilaterally. Gastrointestinal: Abdomen soft, nontender, with normoactive bowel sounds. No rebound or guarding. Neurological: Drowsy, resting comfortably. Nonfocal, nonlateralizing. Skin: No rash. Normal color. No pallor. Musculoskeletal: No pedal edema. Full range of motion extremities. Const Vital Signs: 06/07/22 09:39 06/07/22 11:49 06/07/22 13:11 Temperature 97.8 F Temperature Source Temporal Pulse Rate 102 H 84 Respiratory Rate 16 16 Blood Pressure 127/85 H 119/75 102/67 Blood Pressure Mean 99 89 78 Pulse Ox 97 99 Oxygen Delivery Method Room Air MDM MDM MDM Narrative Medical decision making narrative: Seizure precautions were instilled. I sent off a Keppra level and a carbamazepine level. Keppra level is pending. Carbamazepine level low at 1.0. He states he has his medications and has been taking them. He was told to take an extra Tegretol today. I feel he can be discharged safely home without orally loading him here. Return instructions to the emergency department were reviewed. Disposition is discharged home in stable condition. Lab Data Attestation: I reviewed the patient's lab results. Labs: Laboratory Results - last 24 hr 06/07/22 10:30 Carbamazepine 1.0 L Discharge Plan Triage Chief Complaint: Seizure ED Provider: [place] Ford Dx/Rx/DC Orders Clinical Impression: Epilepsy, Breakthrough seizure, Non compliance w medication regimen Instructions: ED Seizure, Recurrent (Adult) Prescriptions: No Action carbamazepine [Epitol] 200 mg tablet 200 mg PO TID 30 Days Qty: 90 0RF levetiracetam [Keppra] 1,000 mg tablet 1,000 mg PO BID Qty: 60 0RF carbamazepine 200 mg tablet 200 mg PO TID Qty: 90 0RF levetiracetam [Keppra] 1,000 mg tablet 1,000 mg PO BID Qty: 60 0RF levetiracetam [Keppra] 1,000 mg tablet 1,000 mg PO BID 30 Days Qty: 60 0RF carbamazepine 200 mg tablet 200 mg PO TID 30 Days Qty: 90 0RF carbamazepine [Tegretol] 200 mg Tablet 200 mg PO BID carbamazepine [Epitol] 200 mg tablet 400 mg PO TID Qty: 90 0RF levetiracetam [Keppra] 1,000 mg tablet 1,000 mg PO BID 30 Days Qty: 60 0RF ibuprofen 600 mg tablet 600 mg PO Q8H PRN PRN (Reason: pain) Qty: 60 0RF Primary Care Provider: Estelle Dunn Referrals: [facility] Estelle Mclain [Primary Care Provider] - 1 Day Disposition Disposition: Home, Self Care
[2022-06-07 11:49] VITALS: BP 119/75; PULSE 84; RESP 16; O2SAT 99
[2022-06-07 13:11] VITALS: BP 102/67
[2022-06-07 13:54] VITALS: BP 118/80; PULSE 73; RESP 18; O2SAT 95
[2022-06-14 14:16] LABS: KEPPRA (LEVETIRACETAM) <1.0 ug/mL (10.0-40.0)
== END 2022-06-07 13:56 | disposition home or self-care (01) ==
PROVIDERS: Emergency Provider Emergency Medicine; Visit Provider Emergency Medicine
DX: G40.909 Epilepsy, unspecified, not intractable, without status epilepticus (principal); F17.210 Nicotine dependence, cigarettes, uncomplicated; Z91.14 Patient's other noncompliance with medication regimen
CPT/HCPCS: 80156; 80177; 99285

== ENCOUNTER → 2022-08-04 | Outpatient (CLI) | payer MEDICAID, SELFPAY | END | disposition home or self-care (01) | DX: B18.2 Chronic viral hepatitis C (principal) | CPT/HCPCS: 36415; 86705; 86707; 87340; 87350 ==

== ENCOUNTER → 2022-12-21 | Outpatient (CLI) | payer MEDICAID, SELFPAY ==
[2022-12-21 15:58] LABS: Absolute Lymphocyte Count 3.89 X10^3/uL (0.83-4.51); Absolute Neutrophil Count 3.7 X10^3/uL (2.0-7.7); Basophil# 0.07 X10^3/uL; Basophil% 0.7 % (0-1); Eosinophil# 1.04 X10^3/uL; Eosinophils% 10.8 % (0-5); Hematocrit 43.5 % (40-54); Hemoglobin 14.6 g/dL (13.0-16.5); Lymphocyte # 3.89 X10^3/ul (0.83-4.51); Lymphocyte % 40.2 % (19-41); Mean Corp Hgb Conc 33.6 g/dL (32-36); Mean Corpuscular Hgb 32.8 pg (27.0-32.0); Mean Corpuscular Volume 97.8 fL (80-94); Mean Platelet Vol. 9.5 fl (6.2-12.0); Monocyte# 0.93 X10^3/uL; Monocyte% 9.6 % (0-10); NRBC Flagged by Analyzer 0 % (0-5); Neutrophil # 3.72 X10^3/uL (2.7-7.7); Neutrophil % 38.5 % (47-70); Platelet Count 340 K/mm3 (150-450); RBC Distribution Width CV 13.8 % (11.6-14.6); RBC Distribution Width SD 50.2 fl (35.1-43.9); Red Blood Count 4.45 M/mm3 (4.6-6.2); White Blood Count 9.7 K/mm3 (4.4-11.0)
[2022-12-21 16:21] LABS: ALB/GLOB Ratio 1.1 RATIO (0.9-2.4); AST(SGOT) 39 U/L (15-37); Alanine Aminotransfer ALT/SGPT 40 U/L (16-61); Albumin, Serum 3.7 g/dL (3.2-5.0); Alkaline Phosphatase 89 U/L (45-117); Anion Gap 6 (5-15); BUN 15 mg/dL (7-18); BUN/Creat Ratio 13.9 RATIO (10-20); Chloride 107 mmol/L (98-107); Creatinine, Serum 1.08 mg/dL (0.70-1.30); EST Glomerular Filtration Rate 78 mL/min (>60); Est Glom Filt Rate - Afr Amer 95 mL/min (>60); Globulin 3.4 g/dL (2.2-4.2); Glucose 115 mg/dL (74-106); Protein, Total 7.1 g/dL (6.4-8.2); Sodium Level 140 mmol/L (136-145)
[2022-12-21 16:23] LABS: Prothrombin Time (Protime)PT. 12.6 SECONDS (11.7-14.9)
[2022-12-21 16:24] LABS: Hemoglobin A1c 5.6 % (3.8-5.6)
[2022-12-21 16:44] LABS: HIV - WCH Non-Reactive (Nonreactive)
== END | disposition home or self-care (01) ==
PROVIDERS: Visit Provider Nurse Practitioner Family
DX: R56.9 Unspecified convulsions (principal); B18.2 Chronic viral hepatitis C; R73.03 Prediabetes
CPT/HCPCS: 36415; 80053; 80156; 80177; 83036; 85025; 85610; 86703; 86803; 86804; 87522; 87902